=== PATIENT | female | born 1990 | race Caucasian/White ===

== ENCOUNTER 2017-04-24 11:49 | Emergency (ER) | payer BC ==
[~2017-04-24] VITALS: Ht 172.7 cm; Wt 75.6 kg
[~2017-04-24 11:49] MED LIST: ACET-749 PO; CITA40TA12 PO; FERR325T5 PO; PRENTAB26 PO; RANITAB6
[2017-04-24 11:57] VITALS: TEMP 36.8; Ht 172.7 cm; Wt 75.6 kg
[2017-04-24] MEDS ORDERED: VNTHFA/IN INH (12:16)
[2017-04-24] MEDS ORDERED: ALPR1TAB3 PO (12:16)
[2017-04-24] MEDS ORDERED: TRAM-10 PO (12:16)
[2017-04-24] MEDS ORDERED: RANI150T3 PO (12:16)
[2017-04-24] MEDS ORDERED: ADVIN25/60 INH (12:16)
[2017-04-24] MEDS ORDERED: PROM25TA9 PO (12:16)
[2017-04-24] MEDS ORDERED: AMPH30TA2 PO (12:16)
[2017-04-24] MEDS ORDERED: AMPH20TA2 PO (12:16)
[2017-04-24] MEDS ORDERED: TRAZ100T29 PO (12:16)
[2017-04-24] MEDS ORDERED: CYCL10TA6 PO (12:16)
[2017-04-24] MEDS ORDERED: LAMO100T16 PO (12:16)
--- NOTE | 2017-04-24 12:44 | EMERGENCY ROOM VISIT NOTE ---
History First contact with patient: 12:16 Chief Complaint: OTHER COMPLAINT Stated Complaint: BREAST IMPLANTS COMPLICATIONS(PAIN,LUMPS,NIPPLING) History of Present Illness The patient is a 27 year old female who presents to the Emergency Room with complaints of chest wall pain. The patient had silicone breast implants placed in 2014. This was done by Dr. Gee. She states that she felt that they never load quite "right." She states that approximately one month ago she noticed what she describes as rippling. She states that she was watching a show called Botched and felt as though her implants may not look the way they should. She states that over the last several weeks she notices chest wall pain particularly when she stands up or flexes her pectoralis muscles. She states that she notices lumps in her breasts, left worse than right. She states that she has had an intermittent rash on her chest. She rates her discomfort a 5/ 10. She contacted the plastic surgeon's office and the nurse referred her to the emergency department. The patient has an appointment with her plastic surgeon on May 08. She denies any fevers. She denies any shortness of breath or chest pain at rest. She denies any abdominal pain, nausea or vomiting. She denies any urinary symptoms. Review of Systems A 10 system review of systems was completed with positives and pertinent negatives listed in the HPI. Past Medical/Surgical History Medical Problems: (1) Anemia Social History Smoking Status: Current Every Day Smoker Housing Status: lives with family Current/Historical Medications Scheduled Amphetamine-Dextroamphetamine 20MG (Adderall 20MG), 20 MG PO DAILY@1200 Amphetamine-Dextroamphetamine 30MG (Adderall 30MG), 30 MG PO QAM Cyclobenzaprine Hcl (Flexeril), 10 MG PO NEEDED Fluticasone Prop/Salmeterol (Advair Diskus 250/50 60 Dose), 1 PUFF INH BID Lamotrigine (Lamictal), 100 MG PO BID Ranitidine Hcl (Zantac), 150 MG PO BID Trazodone Hcl (Trazodone), 100 MG PO HS Scheduled PRN Albuterol Hfa (Ventolin Hfa), 2 PUFFS INH Q6H PRN for Shortness of Breath Alprazolam (Xanax), 1 MG PO NEEDED PRN for Anxiety Promethazine Hcl (Phenergan), 25 MG PO Q6H PRN for Nausea Tramadol (Ultram), 50 MG PO Q4H PRN for Pain Physical Exam Vital Signs Date Time Temp Pulse Resp B/P (MAP) Pulse Ox O2 Delivery O2 Flow Rate FiO2 04/24/17 15:20 62 18 122/75 98 04/24/17 14:26 77 16 121/79 100 Room Air 04/24/17 13:42 81 18 129/87 100 Room Air 04/24/17 11:57 36.8 90 18 142/89 96 Room Air Physical Exam VITALS: Vitals are noted on the nurse's note and reviewed by myself. Vital signs stable. GENERAL: This is a 27-year-old female, in no acute distress, nondiaphoretic, well-developed well-nourished. SKIN: The skin was without rashes, erythema, edema, or bruising. There is no tenting of the skin. Capillary reflex less than 2 seconds. HEAD: Normocephalic atraumatic. EARS: The external ears are normal in appearance. EYES: Pupils equal round and reactive to light and accommodation. Conjunctivae without injection, sclerae without icterus. Extraocular movements intact. NOSE: Patent, turbinates without inflammation or discharge. MOUTH: Mucous membranes moist. Tonsils are not enlarged. Pharynx without erythema or exudate. Uvula midline. Airway patent. Tongue does not deviate. NECK: Supple without nuchal rigidity. No JVD. HEART: Regular rate and rhythm without murmurs gallops or rubs. LUNGS: Clear to auscultation bilaterally without wheezes, rales or rhonchi.No retractions or accessory muscle use. CHEST: There is no rash. There is no erythema or warmth. There is no area of fluctuance. There are multiple small mobile lumps noted in the bilateral breasts, left greater than right. There is no nipple discharge. There is no lymphadenopathy. ABDOMEN: Positive bowel sounds x 4. Normal tympanic percussion. Soft, nontender, without masses or organomegaly. MUSCULOSKELETAL: No muscle atrophy, erythema, or edema noted. Full range of motion without joint tenderness in all extremities. No tenderness to palpation. Normal gait. Strength 5/5 throughout. NEURO: Patient was alert and oriented to person place and time. No focal neurological deficits. Medical Decision & Procedures ER Provider Diagnostic Interpretation: CHEST 2 VIEWS ROUTINE CLINICAL HISTORY: chest pain, pain at breast implants pain COMPARISON STUDY: No previous studies for comparison. FINDINGS: The bones soft tissues and hemidiaphragms are normal. The cardiomediastinal silhouette is normal. The lungs are clear. The pulmonary vasculature is normal. IMPRESSION: Negative chest. Laboratory Results 04/24/17 12:40 Red Blood Count 4.81, Mean Corpuscular Volume 89.0, Mean Corpuscular Hemoglobin 29.5, Mean Corpuscular Hemoglobin Concent 33.2, Mean Platelet Volume 9.7, Neutrophils (%) (Auto) 55.8, Lymphocytes (%) (Auto) 34.5, Monocytes (%) (Auto) 6.9, Eosinophils (%) (Auto) 2.3, Basophils (%) (Auto) 0.4, Neutrophils # (Auto) 4.18, Lymphocytes # (Auto) 2.59, Monocytes # (Auto) 0.52, Eosinophils # (Auto) 0.17, Basophils # (Auto) 0.03 04/24/17 12:40 Test 04/24/17 12:40 White Blood Count 7.50 K/uL (4.8-10.8) Red Blood Count 4.81 M/uL (4.2-5.4) Hemoglobin 14.2 g/dL (12.0-16.0) Hematocrit 42.8 % (37-47) Mean Corpuscular Volume 89.0 fL (80-100) Mean Corpuscular Hemoglobin 29.5 pg (25-34) Mean Corpuscular Hemoglobin Concent 33.2 g/dl (32-36) Platelet Count 216 K/uL (130-400) Mean Platelet Volume 9.7 fL (7.4-10.4) Neutrophils (%) (Auto) 55.8 % Lymphocytes (%) (Auto) 34.5 % Monocytes (%) (Auto) 6.9 % Eosinophils (%) (Auto) 2.3 % Basophils (%) (Auto) 0.4 % Neutrophils # (Auto) 4.18 K/uL (1.4-6.5) Lymphocytes # (Auto) 2.59 K/uL (1.2-3.4) Monocytes # (Auto) 0.52 K/uL (0.11-0.59) Eosinophils # (Auto) 0.17 K/uL (0-0.5) Basophils # (Auto) 0.03 K/uL (0-0.2) RDW Standard Deviation 43.0 fL (36.4-46.3) RDW Coefficient of Variation 13.2 % (11.5-14.5) Immature Granulocyte % (Auto) 0.1 % Immature Granulocyte # (Auto) 0.01 K/uL (0.00-0.02) Anion Gap 4.0 mmol/L (3-11) Est Creatinine Clear Calc Drug Dose 85.2 ml/min Estimated GFR () 89.4 Estimated GFR (Non- 77.2 BUN/Creatinine Ratio 11.2 (10-20) Calcium Level 9.1 mg/dl (8.5-10.1) Total Bilirubin 0.4 mg/dl (0.2-1) Aspartate Amino Transf (AST/SGOT) 13 U/L (15-37) Alanine Aminotransferase (ALT/SGPT) 21 U/L (12-78) Alkaline Phosphatase 49 U/L (45-117) Troponin I < 0.015 ng/ml (0-0.045) Total Protein 7.2 gm/dl (6.4-8.2) Albumin 4.1 gm/dl (3.4-5.0) Globulin 3.1 gm/dl (2.5-4.0) Albumin/Globulin Ratio 1.3 (0.9-2) Thyroid Stimulating Hormone (TSH) 2.400 uIu/ml (0.300-4.500) Medications Administered Medications (Trade) Dose Ordered Sig/Robert Route Start Time Stop Time Status Last Admin Dose Admin Oxycodone HCl (Roxicodone Immediate Rel Tab) 5 mg NOW STAT PO 04/24/17 13:49 04/24/17 13:50 DC 04/24/17 14:26 5 MG ED Course The patient was seen and examined. Previous visits were reviewed. The patient does not have a fever or leukocytosis. She does not have any significant electrolyte abnormality. TSH was within normal limits. Troponin was not elevated. Chest x-ray does not reveal any obvious acute abnormality The patient has chest wall pain at the site of her breast implants. She is concerned about the appearance of the implants. She has an intermittent rash that is not present today. I do not suspect cellulitis. The patient's pain is with palpation and movement when she engages the pectoralis muscles. She does not have any shortness of breath. She does not have any elevation in her cardiac marker. Her EKG does not reveal any significant abnormality. I initially paged Dr. Hatch who is in the operating room and is not technically technical sales consultant today. I did not hear back from her. Dr. Gee's office was contacted and they stated he was out of the office and we should contact Dr. Bernard's office in [place]. Dr. Bernard's office was contacted but he is also out of the office. They state that she has an appointment on . I advised the patient that I did not have a plastic surgeon with him to discuss the case. She had hoped to get an ultrasound but I advised her that that must go through the breast center and not through the emergency department. I do not suspect infectious process or acute abnormality. She should follow up with plastic surgery for further evaluation and management. She should try Tylenol for pain. She should return with worsening symptoms. The case was discussed with Dr. Horvath who agrees with the assessment and treatment plan Medical Decision The differential diagnosis includes migrating breast implant, cellulitis, fibrocystic breast disease, among others Impression Primary Impression: Chest wall pain Departure Information Dispostion Home / Self-Care Condition GOOD Referrals Araseli Zaragoza DO (PCP) Shreya Hatch MD Patient Instructions My [employer] [place] [employer] Additional Instructions Tylenol according to package instructions Follow up with plastic surgery as scheduled Return with redness, warmth, fevers
[2017-04-24 13:03] LABS: BASO % 0.4 %; BASO ABS # 0.03 K/uL (0-0.2); COMPLETE YES; EOS % 2.3 %; HEMATOCRIT 42.8 % (37-47); IG% 0.1 %; LYMPH % 34.5 %; LYMPH ABS # 2.59 K/uL (1.2-3.4); MEAN CORPUSCULAR HEMOGLOBIN 29.5 pg (25-34); MEAN CORPUSCULAR HGB CONC 33.2 g/dl (32-36); MEAN PLATELET VOLUME 9.7 fL (7.4-10.4); MONO % 6.9 %; NEUT % 55.8 %; PLATELET COUNT 216 K/uL (130-400); RED BLOOD COUNT 4.81 M/uL (4.2-5.4)
[2017-04-24 13:16] LABS: ALT/SGPT 21 U/L (12-78); AST/SGOT 13 U/L (15-37); BLOOD UREA NITROGEN 11 mg/dl (7-18); BUN/CREATININE RATIO 11.2 (10-20); CALCIUM 9.1 mg/dl (8.5-10.1); CARBON DIOXIDE 30 mmol/L (21-32); CHLORIDE 107 mmol/L (98-107); GLUCOSE 86 mg/dl (70-99); POTASSIUM 3.7 mmol/L (3.5-5.1); SODIUM 141 mmol/L (136-145)
[2017-04-24 13:26] LABS: ALB/GLOB RATIO 1.3 (0.9-2); ALKALINE PHOSPHATASE 49 U/L (45-117)
--- NOTE | 2017-04-24 13:31 | DIAGNOSTIC IMAGING REPORT ---
CHEST 2 VIEWS ROUTINE CLINICAL HISTORY: chest pain, pain at breast implants pain COMPARISON STUDY: No previous studies for comparison. FINDINGS: The bones soft tissues and hemidiaphragms are normal. The cardiomediastinal silhouette is normal. The lungs are clear. The pulmonary vasculature is normal. IMPRESSION: Negative chest. The above report was generated using voice recognition software. It may contain grammatical, syntax or spelling errors. Electronically signed by: Myron Croft M.D. 04/24/2017 1:30 PM Dictated Date/Time: 04/24/2017 1:30 PM
[2017-04-24] MEDS ORDERED: OXYCODONE HCL IR 5 MG TAB (IMMEDIATE RELEASE) PO STA (13:49)
[2017-04-24 15:20] VITALS: BP 122/75; PULSE 62; O2SAT 98
== END 2017-04-24 15:27 | disposition home or self-care (01) ==
LOC: C.EDB 11:51 → C.EDA 15:27
DX: R07.89 Other chest pain (principal); N63 Unspecified lump in breast; Z98.82 Breast implant status; D64.9 Anemia, unspecified; F17.200 Nicotine dependence, unspecified, uncomplicated

== ENCOUNTER 2019-05-13 12:59 | Inpatient (IN) ==
--- OUTSIDE RECORDS SUMMARY | 2019-05-13 13:02 | External Medical Summary | Continuity of Care Document ---
:1990 Author Name Mani Cabral, Provider Address Unavailable Unavailable , Care Team Providers Name Role Phone Unavailable Unavailable Unavailable PCP, UNKNOWN Unavailable Unavailable Problems Active medical history not documented Allergies and Adverse Reactions No Known Drug Allergies (Allergy) Medications Medications not documented Procedures Procedures not documented Immunizations Immunizations not documented Plan of Treatment Planned Observations Planned Goals not documented Results No Known Results Results not documented
[2019-05-13 14:14] LABS: Hematocrit (blood only) 20.1 % (37-47); Hemoglobin 6.3 g/dL (12.0-16.0); Mean Corpuscular Hgb Conc 31.3 g/dL (32-36); Mean Corpuscular Volume 81.7 fL (80-100); Mean Platelet Volume 9.3 fL (7.4-10.4); Platelet Count 251 K/uL (130-400); RDW Standard Deviation 45.2 fL (36.4-46.3); Red Blood Count 2.46 M/uL (4.2-5.4); White Blood Count 7.23 K/uL (4.8-10.8)
[2019-05-13 14:15] LABS: Alanine Aminotransferase 49 U/L (12-78); Albumin Level 2.6 gm/dl (3.4-5.0); Aspartate Aminotransferase 14 U/L (15-37); BUN Creatinine Ratio 11.2 (10-20); Blood Urea Nitrogen 10 mg/dl (7-18); Calcium 8.2 mg/dl (8.5-10.1); Carbon Dioxide 24 mmol/L (21-32); Chloride 106 mmol/L (98-107); Creatinine Clr Calc Pharmacy 117.4 ml/min; Est GFR (African American) 98.8; Est GFR (Non-African American) 85.3; Glucose 79 mg/dl (70-99); Potassium 3.4 mmol/L (3.5-5.1); Sodium 139 mmol/L (136-145)
[2019-05-13 14:16] LABS: INR 1.1 (0.9-1.1); Partial Thromboplastin Ratio 0.9; Partial Thromboplastin Time 23.9 Seconds (21.0-31.0); Prothrombin Time 10.8 Seconds (9.0-12.0)
[2019-05-13 14:20] LABS: Albumin Globulin Ratio 0.8 (0.9-2); Alkaline Phosphatase 100 U/L (45-117); Bilirubin,Total 0.3 mg/dl (0.2-1); Globulin 3.3 gm/dl (2.5-4.0); Total Protein 5.9 gm/dl (6.4-8.2); Troponin I < 0.015 ng/ml (0-0.045)
[2019-05-13] MEDS ORDERED: SODIUM CHLORIDE 0.9% 250 ML IV PRN ×3 (14:21→21:18)
[2019-05-13] MEDS ORDERED: LABETALOL HCL IV 5 MG/ML 20ML IV STA ×2 (14:31→17:40)
[2019-05-13 14:34] LABS: Appearance Urine Clear (Clear); Bilirubin Urine Negative (Negative); Blood Urine Trace (Negative); Color Urine Yellow; Glucose Urine UA Negative (Negative); Ketones Urine Negative (Negative); Leukocyte Esterase Urine 1+ (Negative); Nitrite Urine Negative (Negative); Protein Urine Negative (Negative); Specific Gravity Urine 1.008 (1.000-1.030); Urobilinogen Urine Negative (Negative)
[2019-05-13] MEDS ORDERED: LORazepam 1 MG/2 ML VIAL IV STA (14:39)
[2019-05-13 14:50] LABS: Basophils # (auto) 0.02 K/uL (0-0.2); Basophils % (auto) 0.3 %; Eosinophils # (auto) 0.06 K/uL (0-0.5); Eosinophils % (auto) 0.8 %; Immature Granulocytes # (auto) 0.02 K/uL (0.00-0.02); Immature Granulocytes % (auto) 0.3 %; Lymphocytes # (auto) 2.11 K/uL (1.2-3.4); Lymphocytes % (auto) 29.2 %; Monocytes % (auto) 8.3 %; Neutrophils # (auto) 4.42 K/uL (1.4-6.5); Neutrophils % (auto) 61.1 %; Polychromasia 1+
[2019-05-13 14:53] LABS: Bacteria Urine 1+ (Negative); RBC Urine 0-4 /hpf (0-4)
[2019-05-13] MEDS ORDERED: OPTIRAY 320 125ml IV PRN (15:07)
[2019-05-13] MEDS ORDERED: LORazepam 0.5 MG/1 ML VIAL IV STA (15:17)
[2019-05-13] MEDS ORDERED: ONDANSETRON INJ 2 MG/ML 2 ML VIAL IV STA (15:17)
[2019-05-13] MEDS ORDERED: HYDROmorphone INJ 0.5 MG/0.5 ML SYR IV STA (15:17)
--- NOTE | 2019-05-13 15:18 | CT Scan Report ---
CT ANGIOGRAM OF THE CHEST CLINICAL HISTORY: Atypical chest pain. Dyspnea. . COMPARISON STUDY: Chest x-ray dated 04/24/2017. TECHNIQUE: Following the IV administration of 92 cc of Optiray 320, CT angiogram of the chest was per formed from the upper abdomen to the thoracic inlet utilizing the pulmonary embolus protocol. Images are reviewed in the axial, sagittal, and coronal planes. 3-D MIPS images are created and assessed. IV contrast was administered without complication. A dose lowering technique was utilized adhering to the principles of ALARA. The examination is degraded by streak artifact from the arms which could not be elevated above the chest. CT DOSE: 1513.86 mGy.cm FINDINGS: Thyroid: Imaged portions of the thyroid gland are normal in size and attenuation. Thoracic aorta: The thoracic aorta is normal in caliber and demonstrates standard 3-vessel arch anato my. No dissection is seen. Pulmonary vasculature: The pulmonary trunk is normal in caliber. There are no filling defects identif ied in main, lobar, or segmental pulmonary branches to suggest pulmonary embolus. Heart: The heart is normal in size and without pericardial effusion. Lungs and pleural spaces: There are trace pleural effusions. No airspace consolidation is seen typica l for pneumonia. The trachea and central airways are clear. Mediastinum: There is no mediastinal lymphadenopathy. Leeann: Clear. Axillae: There is no axillary lymphadenopathy. Upper abdomen: Partially visualized upper abdominal viscera is within normal limits. Skeletal structures: No lytic or blastic bony lesions are seen. Soft tissues: There are bilateral breast implants. IMPRESSION: 1. There is no evidence of pulmonary embolus in the main, lobar, or segmental pulmonary arteries. 2. Trace pleural effusions. Electronically signed by: Oscar Soliman M.D. 05/13/2019 3:16 PM
--- NOTE | 2019-05-13 15:19 | CT Scan Report ---
CT head/brain wo con CLINICAL HISTORY: 29 years-old Female with preeclampsia headache. Acute headache TECHNIQUE: Multiple axial CT images of the head were obtained without contrast. A dose lowering tech nique was utilized adhering to the principles of ALARA. COMPARISON: None available FINDINGS: No acute intracranial hemorrhage, midline shift, intracranial mass, hydrocephalus, territorial ischem ia or abnormal extra-axial collection. The calvarium is intact. Mild mucosal thickening of the left sphenoid sinus. Mastoid air cells are c lear. Soft tissues and orbits are unremarkable. IMPRESSION: No acute intracranial abnormality. The above report was generated using voice recognition software. It may contain grammatical, syntax o r spelling errors. Electronically signed by: Crescencio Fitzgerald M.D. 05/13/2019 3:18 PM
--- NOTE | 2019-05-13 16:57 | Ultrasound Report ---
ULTRASOUND OF THE PELVIS CLINICAL HISTORY: hemorrhage. COMPARISON STUDY: Pelvic ultrasound dated 06/11/2010. TECHNIQUE: Real-time, grayscale, and color flow sonography of the pelvis is performed transabdominall y. The endovaginal examination was deferred. Images are reviewed in the transverse and longitudinal p lanes. FINDINGS: Uterus: The uterus is enlarged and heterogeneous in echotexture, measuring 15 cm in length . Endometrium: The endometrium is thickened measuring up to 1.5 cm. There is complex fluid within the e ndometrial canal in the fundal region and in the lower uterine segment. No abnormal vascular flow is identified on color imaging. Ovaries: The ovaries are normal in size and morphology. The right ovary measures 3.9 x 1.6 x 2.6 cm a nd the left ovary measures 3.5 x 1.4 x 2.6 cm. Normal Doppler waveforms are shown within both ovaries . Pelvis: There is no free fluid in the cul-de-sac. No concerning adnexal lesion is seen. IMPRESSION: 1. The uterus is enlarged and heterogeneous in echotexture. 2. The endometrium appears thickened and there is complex fluid within endometrial canal that likely represent blood products. 3. No abnormal vascular flow is identified on color imaging to suggest retained products of conceptio n. 4. The ovaries are normal as imaged. Electronically signed by: Oscar Soliman M.D. 05/13/2019 4:55 PM
[2019-05-13] MEDS ORDERED: HYDROCORTISONE ACETATE 25 MG SUPP PR PRN (17:27)
[2019-05-13] MEDS ORDERED: SUPERCREAM 0.870% 15 GM JAR EXT PRN (17:27)
[2019-05-13] MEDS ORDERED: BENZOCAINE 20% AER SPR 82.5 GM CAN EXT PRN (17:27)
[2019-05-13] MEDS ORDERED: BISACODYL 10 MG SUPP PR PRN (17:27)
[2019-05-13] MEDS ORDERED: LACTATED RINGER'S 1,000 ML IV PRN (17:32)
[2019-05-13] MEDS ORDERED: ACETAMINOPHEN 500 MG TAB PO PRN (17:36)
[2019-05-13] MEDS ORDERED: IBUPROFEN 600 MG TAB PO ONE (18:09)
--- NOTE | 2019-05-13 18:12 | Emergency Department Note ---
Entered by Wood Horne acting as a scribe for History of Present Illness General Chief complaint: Cardiac Assessment Stated complaint: CHEST PAIN,SWELLING,SOB,DIZZY,HEADACHED Time Seen by Provider: 05/13/19 14:05 Source: patient History of Present Illness Provider complaint: Chest pain Onset (ago): day(s) 1 Location: chest Pain Consistency: + constant and + other (Worsening) Maximum Pain Intensity: 4 Current Pain Intensity: 4 Relieved By: + none Exacerbated By: + none Associated symptoms: + shortness of breath and + other (Positive dizziness); no nausea/vomiting The patient is a 29 year old female who presents to the Emergency Room with complaints of constant chest pain that started yesterday and has become worse today. The patient rates the pain as a 4/10 and notes nothing makes it better or worse. The patient reports that yesterday she also started becoming short of breath which is also worse today. The patient states that today she started feeling dizzy and developed a headache. The patient notes that just 6 days ago she gave to her 3rd child vaginally. The patient was diagnosed with preeclampsia during this time. She also had hemorrhoids and a D&C done. Due to her bleeding the patient was put on iron. While in the hospital she had one seizure episode but has not had any seizure activity since giving . The patient mentioned that since giving delivery her bilateral lower extremities have been swollen. She also has been passing blood clots vaginally. The patient reports that she has been intermittently losing color in his face as well. The patient denies any cough as well as any complications during her . Home Medications Home Medications Medication Instructions Recorded Confirmed Type clonidine HCl 0.05 mg PO QPM 05/13/19 05/13/19 History dextroamphetamine-amphetamine 30 mg PO BID 05/13/19 05/13/19 History docusate sodium 100 mg PO BID PRN 05/13/19 05/13/19 History ferrous sulfate 134 mg PO BID 05/13/19 05/13/19 History fluoxetine 40 mg PO QAM 05/13/19 05/13/19 History ibuprofen 600 mg PO Q6H 05/13/19 05/13/19 History lurasidone [Latuda] 60 mg PO QPM 05/13/19 05/13/19 History omeprazole 40 mg PO QAM 05/13/19 05/13/19 History oxycodone 5 mg PO Q6H PRN 05/13/19 05/13/19 History Allergies Allergy/AdvReac Type Severity Reaction Status Date / Time almotriptan AdvReac Severe TIGHTNESS Unverified 05/13/19 15:23 IN JAW, CAN'T BREATHE gabapentin AdvReac Severe TIGHTNESS Unverified 05/13/19 15:23 IN JAW, CAN'T BREATHE sumatriptan AdvReac Severe TIGHTNESS Unverified 05/13/19 15:23 IN JAW, CAN'T BREATHE topiramate AdvReac Severe TIGHTNESS Unverified 05/13/19 15:23 IN JAW, CANT BREATHE NSAIDS (Non-Steroidal AdvReac Unknown SWELLING Verified 05/13/19 15:23 Anti-Inflamma Past Med/Surg History Medical History Hemorrhoids (Acute) Surgical History H/O dilation and curettage Family History Other No pertinent family history in first degree relatives Social History Preferred Language: Kuwaiti Feels Safe at Home: Yes Smoking Status: Former smoker Review of Systems See HPI for pertinent positives & negatives. and A total of 10 systems reviewed and were otherwise negative Physical Exam Vital Signs Vital Signs - 24 hr 05/13/19 13:06 05/13/19 13:50 05/13/19 14:17 Temperature 36.9 C Temperature Source Oral Sepsis Recent Fever Within 48 Hours No Sepsis New/Unexplained Change in Mental Status No Sepsis Action Taken by Nursing No Action Required Pulse Rate 104 H Pulse Rate [Apical] 95 H Pulse Rate from SpO2 Sensor Pulse Rhythm Regular Pulse Rhythm [Apical] Regular Pulse Strength Normal Respiratory Rate 20 17 Respiratory Effort / Characteristics Non-Labored Spontaneous Non-Labored Spontaneous Respiratory Depth Normal Normal Respiratory Pattern Regular Regular Blood Pressure 158/88 H Blood Pressure [Left Arm] 146/68 H Blood Pressure Mean 111 Blood Pressure Mean [Left Arm] 94 Blood Pressure Position Sitting Blood Pressure Position [Left Arm] Pulse Oximetry 98 100 93 Oxygen Delivery Method Room Air Nasal Cannula Room Air Oxygen Flow Rate 2 05/13/19 14:33 05/13/19 14:44 05/13/19 15:13 Temperature Temperature Source Sepsis Recent Fever Within 48 Hours Sepsis New/Unexplained Change in Mental Status Sepsis Action Taken by Nursing Pulse Rate 67 Pulse Rate [Apical] 68 65 Pulse Rate from SpO2 Sensor 67 Pulse Rhythm Pulse Rhythm [Apical] Pulse Strength Respiratory Rate 16 16 14 Respiratory Effort / Characteristics Respiratory Depth Respiratory Pattern Blood Pressure 140/89 Blood Pressure [Left Arm] 164/101 H 164/103 H Blood Pressure Mean 106 Blood Pressure Mean [Left Arm] 122 123 Blood Pressure Position Blood Pressure Position [Left Arm] Pulse Oximetry 99 99 100 Oxygen Delivery Method Room Air Room Air Oxygen Flow Rate 2 05/13/19 15:48 05/13/19 16:05 05/13/19 16:20 Temperature 37.1 C 37.0 C 37.0 C Temperature Source Oral Oral Oral Sepsis Recent Fever Within 48 Hours Sepsis New/Unexplained Change in Mental Status Sepsis Action Taken by Nursing Pulse Rate 74 77 69 Pulse Rate [Apical] Pulse Rate from SpO2 Sensor Pulse Rhythm Pulse Rhythm [Apical] Pulse Strength Respiratory Rate 18 20 18 Respiratory Effort / Characteristics Respiratory Depth Respiratory Pattern Blood Pressure 144/96 H 146/96 H 155/92 H Blood Pressure [Left Arm] Blood Pressure Mean 112 112 113 Blood Pressure Mean [Left Arm] Blood Pressure Position Lying Lying Lying Blood Pressure Position [Left Arm] Pulse Oximetry 98 98 99 Oxygen Delivery Method Oxygen Flow Rate 05/13/19 16:50 05/13/19 17:30 05/13/19 17:32 Temperature 37.2 C 37.2 C Temperature Source Oral Oral Sepsis Recent Fever Within 48 Hours Sepsis New/Unexplained Change in Mental Status Sepsis Action Taken by Nursing Pulse Rate 60 63 Pulse Rate [Apical] 75 Pulse Rate from SpO2 Sensor Pulse Rhythm Pulse Rhythm [Apical] Pulse Strength Respiratory Rate 18 20 16 Respiratory Effort / Characteristics Non-Labored Spontaneous Respiratory Depth Normal Respiratory Pattern Blood Pressure 151/91 H 151/91 H Blood Pressure [Left Arm] 151/91 H Blood Pressure Mean 111 111 Blood Pressure Mean [Left Arm] 111 Blood Pressure Position Sitting Blood Pressure Position [Left Arm] Lying Pulse Oximetry 100 100 100 Oxygen Delivery Method Nasal Cannula Oxygen Flow Rate 2 2 2 05/13/19 18:00 05/13/19 18:30 05/13/19 18:42 Temperature 37.3 C 37.1 C Temperature Source Oral Oral Sepsis Recent Fever Within 48 Hours Sepsis New/Unexplained Change in Mental Status Sepsis Action Taken by Nursing Pulse Rate 60 60 Pulse Rate [Apical] Pulse Rate from SpO2 Sensor Pulse Rhythm Pulse Rhythm [Apical] Pulse Strength Respiratory Rate 18 20 Respiratory Effort / Characteristics Respiratory Depth Respiratory Pattern Blood Pressure 134/93 140/91 Blood Pressure [Left Arm] Blood Pressure Mean 106 107 Blood Pressure Mean [Left Arm] Blood Pressure Position Blood Pressure Position [Left Arm] Pulse Oximetry 100 100 Oxygen Delivery Method Nasal Cannula Oxygen Flow Rate 2 2 2 05/13/19 20:18 Temperature 36.6 C Temperature Source Oral Sepsis Recent Fever Within 48 Hours Sepsis New/Unexplained Change in Mental Status Sepsis Action Taken by Nursing Pulse Rate Pulse Rate [Apical] 86 Pulse Rate from SpO2 Sensor Pulse Rhythm Pulse Rhythm [Apical] Pulse Strength Respiratory Rate 18 Respiratory Effort / Characteristics Respiratory Depth Respiratory Pattern Blood Pressure Blood Pressure [Left Arm] 135/66 Blood Pressure Mean Blood Pressure Mean [Left Arm] 89 Blood Pressure Position Blood Pressure Position [Left Arm] Pulse Oximetry 99 Oxygen Delivery Method Room Air Oxygen Flow Rate GENERAL: Distressed. HENT: Exam performed. Head: Normocephalic and atraumatic. Right Ear: External ear normal. No mastoid tenderness. Left Ear: External ear normal. No mastoid tenderness. Mouth/Throat: The oropharynx is clear and moist. No trismus in the jaw. No dental abscesses or uvula swelling. No oropharyngeal exudate or tonsillar abscesses. EYES: No AV nicking or papilledema. Conjunctivae and EOM are normal. Pupils are equal, round, and reactive to light. Right eye exhibits no discharge. Left eye exhibits no discharge. No scleral icterus. NECK: Normal range of motion. Neck supple. No JVD present. No spinous process tenderness present. No carotid bruit present. No rigidity. No tracheal deviation and normal range of motion present. No Brudzinski's sign and no Kernig's sign noted. CV: Normal rate, regular rhythm, normal heart sounds and intact distal pulses. There is no peripheral edema. Palpable radial pulses bue. PULM/CHEST: Effort normal and breath sounds normal. No respiratory distress. No stridor. She has no wheezes. She has no rales. Chest Wall: She exhibits no tenderness. ABD: The abdomen is soft. Bowel sounds are normal. She has no distension. No mass is present. There is no tenderness. There is no rebound, no guarding, no Batres's sign and no tenderness at McBurney's point. Rovsig negative MUSC/SKEL: Normal range of motion. There is no peripheral tenderness or deformity. 3+ pitting edema to the bilateral lower extremities. LYMPH: No cervical adenopathy. NEURO: She is alert and oriented to person, place, and time. She has normal strength. No cranial nerve deficit or sensory deficit. Coordination and gait normal. GCS eye subscore is 4. GCS verbal subscore is 5. GCS motor subscore is 6. cerbellar tests wnl. SKIN: Skin is warm and dry. She is not diaphoretic. Pale. PSYCH: She has a normal mood and affect. Her behavior is normal. Judgment and thought content normal. Course 1407: Past medical records reviewed. The patient was evaluated in room A10, and a complete history and physical examination were performed. We are medially concerned about preeclampsia/eclamptic, press syndrome, hemorrhage, and retained products of conception. 2 large-bore IVs were medially placed. 1430: The patient's hemoglobin was 6.3 so I ordered a blood transfusion. I dis cussed the case with Dr. Lawrence LUU who agreed with the plan to get a CT head, CT chest, MRI of the brain, and a pelvic ultrasound. Her blood pressure was 164/101 so I ordered 10mg of Labetalol. I also ordered 1mg of Ativan. 1458: The patient's medical records show that she was induced and delivered on May 07 because of preeclampsia. Her initial symptom was a headache and her b lood pressures were good while at [facility] in [place]. The patient was started on Magnesium and is still taking it. Her 24 hour protein was 421. 1541: The patient's blood pressure is 140/89 status post the 10mg bolus of Labetalol and 1mg Ativan. All of her CT scans were negative. We are going to be gin the blood transfusion and then bring the patient to ultrasound. 1712: Labs within normal limits with exception of the hemoglobin. Platelets are stable, mild elevation of the LFTs. Protein negative urine. CTs within normal limits. I updated Dr. Velazco on the patient. He is going to come evaluate her. 1806: Ultrasound shows no retained products of conception. MRI negative. Patient is currently getting the blood transfusion. I spoke to Dr. Bravo after he evaluated the patient and he will be accepting her for further evaluation. Her blood pressure following a dose of 20mg Labetalol is 135/90. Consultations Consultation #1: I discussed the case with Dr. Lawrence LUU who agreed with the plan to get a CT head, CT chest, MRI of the brain, and a pelvic ultrasound. Her blood pressure was 164/101 so I ordered 10mg of Labetalol. I also ordered 1mg of Ativan. Time: 14:30 Consultation #2: I spoke to Dr. Bravo after he evaluated the patient and he will be accepting her for further evaluation. Her blood pressure following a dose of 20mg Labetalol is 135/90. Time: 18:06 Administered Medications Acetaminophen (Tylenol) 650 mg PO Q6H PRN PRN Reason: Pain/DIOP/Fever Stop: 06/12/19 17:26 Last Admin: 05/13/19 18:18 Dose: 650 mg Documented by: [id number] Ioversol (Optiray 320 125ml) 92 ml IV ONCE PRN PRN Reason: Interaction Checking Stop: 05/17/19 15:06 Last Admin: 05/13/19 15:08 Dose: 92 ml Documented by: [id number] Discontinued Medications Alprazolam (Xanax) Confirm Administered Dose 0.5 mg .ROUTE .STK-MED ONE Stop: 05/13/19 18:29 Last Admin: 05/13/19 18:29 Dose: 1 mg Documented by: [id number] Hydromorphone HCl (Dilaudid) 0.5 mg IV NOW STA Stop: 05/13/19 15:18 Last Admin: 05/13/19 15:23 Dose: 0.5 mg Documented by: [id number] Lorazepam (Ativan) 1 mg in 2 mls @ 2 mls/min IV NOW STA Stop: 05/13/19 14:40 Last Admin: 05/13/19 14:43 Dose: 2 mls/min Documented by: [id number] Lorazepam (Ativan) 0.5 mg in 1 mls @ 1 mls/min IV NOW STA Stop: 05/13/19 15:18 Last Admin: 05/13/19 15:25 Dose: 1 mls/min Documented by: [id number] Ibuprofen (Motrin) Confirm Administered Dose 600 mg PO .STK-MED ONE Stop: 05/13/19 18:10 Last Admin: 05/13/19 18:18 Dose: 600 mg Documented by: [id number] Labetalol HCl (Normodyne) 10 mg IV NOW STA Stop: 05/13/19 14:32 Last Admin: 05/13/19 14:36 Dose: 10 mg Documented by: [id number] Cosigned by: [id number] Labetalol HCl (Normodyne) 20 mg IV NOW STA Stop: 05/13/19 17:41 Last Admin: 05/13/19 17:55 Dose: 20 mg Documented by: [id number] Cosigned by: [id number] Ondansetron HCl (Zofran) 4 mg IV NOW STA Stop: 05/13/19 15:18 Last Admin: 05/13/19 15:25 Dose: 4 mg Documented by: [id number] Medical Decision Making Medical Records Attestation: I reviewed the patient's medical records. Home Medications Current Medication List: was personally reviewed by me Laboratory Data Attestation: I reviewed the patient's lab results. Result diagrams: 05/13/19 13:39 05/13/19 13:39 Lab Results 05/13/19 05/13/19 05/13/19 Range/Units 13:39 13:39 13:39 WBC 7.23 (4.8-10.8) K/uL RBC 2.46 L (4.2-5.4) M/uL Hgb 6.3 L* (12.0-16.0) g/dL Hct 20.1 L* (37-47) % MCV 81.7 (80-100) fL MCH 25.6 (25-34) pg MCHC 31.3 L (32-36) g/dL RDW Std Deviation 45.2 (36.4-46.3) fL RDW Coeff of Dax 16.0 H (11.5-14.5) % Plt Count 251 (130-400) K/uL MPV 9.3 (7.4-10.4) fL Immature Gran % (Auto) 0.3 % Neut % (Auto) 61.1 % Lymph % (Auto) 29.2 % Schley % (Auto) 8.3 % Eos % (Auto) 0.8 % Baso % (Auto) 0.3 % Immature Gran # (Auto) 0.02 (0.00-0.02) K/uL Neut # (Auto) 4.42 (1.4-6.5) K/uL Lymph # (Auto) 2.11 (1.2-3.4) K/uL Schley # (Auto) 0.60 H (0.11-0.59) K/uL Eos # (Auto) 0.06 (0-0.5) K/uL Baso # (Auto) 0.02 (0-0.2) K/uL Polychromasia 1+ PT 10.8 (9.0-12.0) Seconds INR 1.1 (0.9-1.1) APTT 23.9 (21.0-31.0) Seconds PTT Ratio 0.9 Sodium 139 (136-145) mmol/L Potassium 3.4 L (3.5-5.1) mmol/L Chloride 106 (98-107) mmol/L Carbon Dioxide 24 (21-32) mmol/L Anion Gap 9.0 (3-11) BUN 10 (7-18) mg/dl Creatinine 0.91 (0.6-1.2) mg/dl Est Cr Clr Drug Dosing 117.4 ml/min Est GFR ( Amer) 98.8 Est GFR (Non-Af Amer) 85.3 BUN/Creatinine Ratio 11.2 (10-20) Glucose 79 (70-99) mg/dl Calcium 8.2 L (8.5-10.1) mg/dl Total Bilirubin 0.3 (0.2-1) mg/dl AST 14 L (15-37) U/L ALT 49 (12-78) U/L Alkaline Phosphatase 100 (45-117) U/L Troponin I < 0.015 (0-0.045) ng/ml Total Protein 5.9 L (6.4-8.2) gm/dl Albumin 2.6 L (3.4-5.0) gm/dl Globulin 3.3 (2.5-4.0) gm/dl Albumin/Globulin Ratio 0.8 L (0.9-2) Urine Color Urine Appearance (Clear) Urine pH (4.5-7.5) Ur Specific [place] (1.000-1.030) Urine Protein (Negative) Urine Glucose (UA) (Negative) Urine Ketones (Negative) Urine Blood (Negative) Urine Nitrite (Negative) Urine Bilirubin (Negative) Urine Urobilinogen (Negative) Ur Leukocyte Esterase (Negative) Urine RBC (0-4) /hpf Urine WBC (0-5) /hpf Ur Epithelial Cells (0-5) /lpf Urine Bacteria (Negative) Blood Type Antibody Screen Crossmatch 05/13/19 05/13/19 Range/Units 14:19 14:25 WBC (4.8-10.8) K/uL RBC (4.2-5.4) M/uL Hgb (12.0-16.0) g/dL Hct (37-47) % MCV (80-100) fL MCH (25-34) pg MCHC (32-36) g/dL RDW Std Deviation (36.4-46.3) fL RDW Coeff of Dax (11.5-14.5) % Plt Count (130-400) K/uL MPV (7.4-10.4) fL Immature Gran % (Auto) % Neut % (Auto) % Lymph % (Auto) % Schley % (Auto) % Eos % (Auto) % Baso % (Auto) % Immature Gran # (Auto) (0.00-0.02) K/uL Neut # (Auto) (1.4-6.5) K/uL Lymph # (Auto) (1.2-3.4) K/uL Schley # (Auto) (0.11-0.59) K/uL Eos # (Auto) (0-0.5) K/uL Baso # (Auto) (0-0.2) K/uL Polychromasia PT (9.0-12.0) Seconds INR (0.9-1.1) APTT (21.0-31.0) Seconds PTT Ratio Sodium (136-145) mmol/L Potassium (3.5-5.1) mmol/L Chloride (98-107) mmol/L Carbon Dioxide (21-32) mmol/L Anion Gap (3-11) BUN (7-18) mg/dl Creatinine (0.6-1.2) mg/dl Est Cr Clr Drug Dosing ml/min Est GFR ( Amer) Est GFR (Non-Af Amer) BUN/Creatinine Ratio (10-20) Glucose (70-99) mg/dl Calcium (8.5-10.1) mg/dl Total Bilirubin (0.2-1) mg/dl AST (15-37) U/L ALT (12-78) U/L Alkaline Phosphatase (45-117) U/L Troponin I (0-0.045) ng/ml Total Protein (6.4-8.2) gm/dl Albumin (3.4-5.0) gm/dl Globulin (2.5-4.0) gm/dl Albumin/Globulin Ratio (0.9-2) Urine Color Yellow Urine Appearance Clear (Clear) Urine pH 6.0 (4.5-7.5) Ur Specific [place] 1.008 (1.000-1.030) Urine Protein Negative (Negative) Urine Glucose (UA) Negative (Negative) Urine Ketones Negative (Negative) Urine Blood Trace H (Negative) Urine Nitrite Negative (Negative) Urine Bilirubin Negative (Negative) Urine Urobilinogen Negative (Negative) Ur Leukocyte Esterase 1+ H (Negative) Urine RBC 0-4 (0-4) /hpf Urine WBC 5-10 H (0-5) /hpf Ur Epithelial Cells 10-20 H (0-5) /lpf Urine Bacteria 1+ H (Negative) Blood Type A Positive Antibody Screen NEGATIVE Crossmatch See Detail Imaging Data Radiologist's Impression: Radiology results as stated below per my review and the radiologist's interpretation: CT head/brain wo con CLINICAL HISTORY: 29 years-old Female with preeclampsia headache. Acute headache TECHNIQUE: Multiple axial CT images of the head were obtained without contrast. A dose lowering technique was utilized adhering to the principles of ALARA. COMPARISON: None available FINDINGS: No acute intracranial hemorrhage, midline shift, intracranial mass, hydrocephalus, territorial ischemia or abnormal extra-axial collection. The calvarium is intact. Mild mucosal thickening of the left sphenoid sinus. Mastoid air cells are clear. Soft tissues and orbits are unremarkable. IMPRESSION: No acute intracranial abnormality. The above report was generated using voice recognition software. It may contain grammatical, syntax or spelling errors. Electronically signed by: Crescencio Fitzgerald M.D. 05/13/2019 3:[address] ANGIOGRAM OF THE CHEST CLINICAL HISTORY: Atypical chest pain. Dyspnea. . COMPARISON STUDY: Chest x-ray dated 04/24/2017. TECHNIQUE: Following the IV administration of 92 cc of Optiray 320, CT angiogram of the chest was performed from the upper abdomen to the thoracic inlet utilizing the pulmonary embolus protocol. Images are reviewed in the axial, sagittal, and coronal planes. 3-D MIPS images are created and assessed. IV contrast was administered without complication. A dose lowering technique was utilized adhering to the principles of ALARA. The examination is degraded by streak artifact from the arms which could not be elevated above the chest. CT DOSE: 1513.86 mGy.cm FINDINGS: Thyroid: Imaged portions of the thyroid gland are normal in size and attenuation. Thoracic aorta: The thoracic aorta is normal in caliber and demonstrates standard 3-vessel arch anatomy. No dissection is seen. Pulmonary vasculature: The pulmonary trunk is normal in caliber. There are no filling defects identified in main, lobar, or segmental pulmonary branches to suggest pulmonary embolus. Heart: The heart is normal in size and without pericardial effusion. Lungs and pleural spaces: There are trace pleural effusions. No airspace consolidation is seen typical for pneumonia. The trachea and central airways are clear. Mediastinum: There is no mediastinal lymphadenopathy. Leeann: Clear. Axillae: There is no axillary lymphadenopathy. Upper abdomen: Partially visualized upper abdominal viscera is within normal limits. Skeletal structures: No lytic or blastic bony lesions are seen. Soft tissues: There are bilateral breast implants. IMPRESSION: 1. There is no evidence of pulmonary embolus in the main, lobar, or segmental pulmonary arteries. 2. Trace pleural effusions. Electronically signed by: Oscar Soliman M.D. 05/13/2019 3:16 PM ULTRASOUND OF THE PELVIS CLINICAL HISTORY: hemorrhage. COMPARISON STUDY: Pelvic ultrasound dated 06/11/2010. TECHNIQUE: Real-time, grayscale, and color flow sonography of the pelvis is p erformed transabdominally. The endovaginal examination was deferred. Images are reviewed in the transverse and longitudinal planes. FINDINGS: Uterus: The uterus is enlarged and heterogeneous in echotexture, measuring 15 cm in length. Endometrium: The endometrium is thickened measuring up to 1.5 cm. There is complex fluid within the endometrial canal in the fundal region and in the lower uterine segment. No abnormal vascular flow is identified on color imaging. Ovaries: The ovaries are normal in size and morphology. The right ovary measures 3.9 x 1.6 x 2.6 cm and the left ovary measures 3.5 x 1.4 x 2.6 cm. Normal Doppler waveforms are shown within both ovaries. Pelvis: There is no free fluid in the cul-de-sac. No concerning adnexal lesion is seen. IMPRESSION: 1. The uterus is enlarged and heterogeneous in echotexture. 2. The endometrium appears thickened and there is complex fluid within endometrial canal that likely represent blood products. 3. No abnormal vascular flow is identified on color imaging to suggest retained products of conception. 4. The ovaries are normal as imaged. Electronically signed by: Oscar Soliman M.D. 05/13/2019 4:55 PM MR brain wo con CLINICAL HISTORY: 29 years-old Female presenting with recent status, seizure prior to giving 6 days ago, shortness of breath and chest pain, he adaches and leg swelling, concern for PRES, eclampsia. TECHNIQUE: Multisequence, multiplanar MR imaging of the brain was performed without the use of intravenous contrast. IV contrast: None. COMPARISON: Noncontrast CT head performed earlier the same day. FINDINGS: Localizer images: Unremarkable. Normal midline sagittal structures. Ventricles and sulci normal in size. No restricted diffusion or hemorrhage. Brain parenchyma normal in appearance with preserved caldwell-white differentiation. No mass effect or midline shift. No extra-axial fluid collection. T2 skull base flow voids preserved. Bone marrow signal intensity within the calvarium within normal limits. IMPRESSION: 1. No acute intracranial abnormality. Electronically signed by: Rishabh Burgos M.D. 05/13/2019 6:15 PM ECG Data Attestation: I personally reviewed and interpreted this ECG as follows: Indication: chest pain Rate (beats per minute): 69 Rhythm: other (Sinus arrhythmia ) Findings: + other (RI, QRS, QTC intervals are WNL. ); no ST depression and no ST elevation Blood Pressure Blood Pressure Findings: Elevated blood pressure Blood Pressure Disposition: Referred to patients primary care provider [facility] Narrative 1407: Past medical records reviewed. The patient was evaluated in room A10, and a complete history and physical examination were performed. We are medially c oncerned about preeclampsia/eclamptic, press syndrome, hemorrhage, and retained products of conception. 2 large-bore IVs were medially placed. 1430: The patient's hemoglobin was 6.3 so I ordered a blood transfusion. I discussed the case with Dr. Lawrence LUU who agreed with the plan to get a CT head, CT chest, MRI of the brain, and a pelvic ultrasound. Her blood pressure was 164/101 so I ordered 10mg of Labetalol. I also ordered 1mg of Ativan. 1458: The patient's medical records show that she was induced and delivered on May 07 because of preeclampsia. Her initial symptom was a headache and her blood pressures were good while at [facility] in [place]. The patient was started on Magnesium and is still taking it. Her 24 hour protein was 421. 1541: The patient's blood pressure is 140/89 status post the 10mg bolus of Labetalol and 1mg Ativan. All of her CT scans were negative. We are going to begin the blood transfusion and then bring the patient to ultrasound. 1712: Labs within normal limits with exception of the hemoglobin. Platelets are stable, mild elevation of the LFTs. Protein negative urine. CTs within normal limits. I updated Dr. Velazco on the patient. He is going to come evaluate her. 1806: Ultrasound shows no retained products of conception. MRI negative. Patient is currently getting the blood transfusion. I spoke to Dr. Bravo after he evaluated the patient and he will be accepting her for further evaluation. Her blood pressure following a dose of 20mg Labetalol is 135/90. Impression & Plan Symptomatic anemia, hypertension, Pre-eclampsia, Critical Care Time Critical Care Time: Yes Total Critical Care Time: 92 I have personally spent greater than 92 minutes of critical care time in the direct management of this patient. This includes bedside care, interpretation of diagnostic studies, and testing, discussion with consultants, patient, and family members, and other required patient management activities. This 92 minutes is in excess of all separately billable procedures. Discharge Plan Visit Data Chief Complaint: Cardiac Assessment Stated Complaint: CHEST PAIN,SWELLING,SOB,DIZZY,HEADACHED Other Complaint: Swelling/Edema to Extremity ED Provider: Kimani Lopez Discharge Problem: Symptomatic anemia, hypertension, Pre-eclampsia, Patient Disposition: Admitted As Inpatient Discharge Instructions Interventions: ED Discharge Assessment Last Done: 05/13/19 18:42 Forms Stand Alone Forms: My [facility] [employer] Prescriptions Prescriptions: No Action fluoxetine 40 mg capsule 40 mg PO QAM RF: 0 clonidine HCl 0.1 mg tablet 0.05 mg PO QPM RF: 0 omeprazole 40 mg capsule,delayed release(DR/EC) 40 mg PO QAM RF: 0 docusate sodium 100 mg capsule 100 mg PO BID PRN (Reason: Constipation) RF: 0 ibuprofen 600 mg tablet 600 mg PO Q6H RF: 0 oxycodone 5 mg Tablet 5 mg PO Q6H PRN (Reason: Pain) RF: 0 ferrous sulfate 134 mg (27 mg iron) Tablet 134 mg PO BID RF: 0 Latuda 60 mg tablet 60 mg PO QPM RF: 0 dextroamphetamine-amphetamine 30 mg tablet 30 mg PO BID RF: 0 Referrals Referrals: Araseli Zaragoza, DO [Primary Care Provider] - The scribe's documentation has been prepared under my direction and personally reviewed by me in its entirety. I confirm that the note above accurately reflects all work, treatment, procedures, and medical decision making performed by me.
[2019-05-13] MEDS ORDERED: ALPRAZolam 0.5 MG TABLET PO STA (18:14)
--- NOTE | 2019-05-13 18:16 | Magnetic Resonance Report ---
MR brain wo con CLINICAL HISTORY: 29 years-old Female presenting with recent status, seizure prior to givi ng 6 days ago, shortness of breath and chest pain, headaches and leg swelling, concern for PRES , eclampsia. TECHNIQUE: Multisequence, multiplanar MR imaging of the brain was performed without the use of intrav enous contrast. IV contrast: None. COMPARISON: Noncontrast CT head performed earlier the same day. FINDINGS: Localizer images: Unremarkable. Normal midline sagittal structures. Ventricles and sulci normal in size. No restricted diffusion or h emorrhage. Brain parenchyma normal in appearance with preserved caldwell-white differentiation. No mass e ffect or midline shift. No extra-axial fluid collection. T2 skull base flow voids preserved. Bone marrow signal intensity within the calvarium within normal limits. IMPRESSION: 1. No acute intracranial abnormality. Electronically signed by: Rishabh Burgos M.D. 05/13/2019 6:15 PM
[2019-05-13] MEDS: ACETAMINOPHEN 325 MG TAB PO PRN (18:18)
[2019-05-13] MEDS ORDERED: ALPRAZolam 0.5 MG TABLET ONE (18:28)
[2019-05-13] MEDS ORDERED: IBUPROFEN 600 MG TAB PO PRN (20:42)
[2019-05-13] MEDS ORDERED: OXYCODONE HCL IR 5 MG TAB (IMMEDIATE RELEASE) PO PRN (20:42)
[2019-05-13] MEDS ORDERED: DOCUSATE SODIUM 100 MG CAP PO PRN (20:42)
[2019-05-13] MEDS ORDERED: LURASIDONE HCL 40 MG TAB PO SCH (21:00)
[2019-05-13] MEDS ORDERED: cloNIDine HCl 0.1 MG TAB PO SCH (21:00)
[2019-05-13] MEDS: DOCUSATE SODIUM 100 MG CAP PO SCH (21:57)
[2019-05-13] MEDS: LABETALOL HCL 100 MG TAB PO SCH (21:59)
[2019-05-14 04:09] LABS: Hematocrit (blood only) 23.2 % (37-47); Hemoglobin 7.7 g/dL (12.0-16.0)
--- NOTE | 2019-05-14 05:26 | History and Physical Report ---
REASON FOR ADMISSION AND HISTORY OF PRESENT ILLNESS: The patient is a 29-year-old female para 3-0-0-3, status post delivery at [facility] 05/07/2019 of a live male with Apgars 5, 6, 7 at 1, 5 and 10 minutes. The patient was seen at [facility] because she was traveling to [place] for a concert and developed onset of what sounds like labor. She was 36 weeks and 4 days. EDC 05/31/2019. GBS is unknown. She was induced due to preeclampsia without severe features. Her blood pressure was in normal range at that time and her symptoms were that of headache. Her delivery was uncomplicated of a live male. Her labs were all normal when she was in [place] as was what we can see from limited record from [facility]. After delivery, she apparently had hemorrhage, was taken to the OR for D&C and had a Bakri balloon placed. She did not receive any blood. She was on magnesium for 24 hours and was discharged home this past Thursday in stable condition, placed on iron. She had been told to follow up. She was seen in the ER today and she was complaining of some shortness of breath and some chest pain. Workup done included CT scan of the chest without any evidence of pulmonary disease or any evidence of a pulmonary embolism. CT scan of head did not reveal any evidence of brain bleed. Ultrasound revealed possible blood clots in the uterus; however, no evidence of retained placenta. The blood count on admission was 6.3 hemoglobin and 20.1 hematocrit with normal white cell count of 7.3. Coags were normal. Chemistries were normal without any evidence of any preeclampsia. Urine showed negative protein and her platelet count was 251. The patient is 6 days . She will be admitted for a diagnosis of hypertension and anemia. She will be given 2 units of packed red cells. H&H will be done post-transfusion and another CBC was ordered for tomorrow morning. The patient will also be started on labetalol 100 mg twice a day. PHYSICAL EXAMINATION: HEENT: Within normal limits. LUNGS: Clear to auscultation. VITAL SIGNS: Blood pressure 151/91. ABDOMEN: Soft, gravid. No bleeding. EXTREMITIES: Her legs show 1+ edema. There is no evidence of a DVT. Homans' negative. NEUROLOGIC: Intact. ASSESSMENT: with hypertension and anemia. PLAN: Admit and continue blood and CBC to follow and observation.
[2019-05-14] MEDS: ACETAMINOPHEN 325 MG TAB PO PRN (05:30)
[2019-05-14] MEDS: LABETALOL HCL 100 MG TAB PO SCH (07:53)
[2019-05-14] MEDS: DOCUSATE SODIUM 100 MG CAP PO SCH (07:54)
[2019-05-14] MEDS ORDERED: PRENATAL VITAMIN 1 TAB PO SCH (08:00)
[2019-05-14] MEDS ORDERED: FERROUS SULFATE 325 MG TAB PO SCH (08:00)
[2019-05-14] MEDS ORDERED: FERROUS SULFATE ELIX 220MG/5ML PO SCH (09:00)
[2019-05-14] MEDS ORDERED: PANTOprazole 40 MG TAB PO SCH (09:00)
[2019-05-14] MEDS ORDERED: FLUOXETINE HCL 20 MG CAP PO SCH (09:00)
[2019-05-14] MEDS ORDERED: AMPHETAMINE ASP/SULF/DEXTRAMPH 10 MG TAB PO SCH (09:00)
--- NOTE | 2019-05-14 10:55 | Progress Note ---
Date of Service May 14, 2019 Subjective S:Pt doing well Improved clinically No more SOB, tachycardia or dyspnea Improved BP on labetalol PIH labs; NMl O; VSS PE; Ht ; S1S2. R/R/R Lung : CTA bilt Abd; NT. +BS ext; No C/C/E A/P Preeclampsia PP Anemia . PPH received 2 units PRBC stable labs Elev. BP- responded to labetalol d/c home with instructions Results & Data Vital Signs (Past 12 Hours) Vital Signs Temp Pulse Pulse Resp BP BP BP 05/14/19 08:14 36.7 C 71 16 125/89 05/14/19 04:05 37 C 86 98 H 122/71 05/14/19 01:17 36.8 C 96 H 18 129/74 05/13/19 23:20 36.8 C 69 18 107/71 05/13/19 23:15 36.9 C 72 82 18 133/86 133/86 Pulse Ox 05/14/19 08:14 99 05/14/19 04:05 98 05/14/19 01:17 05/13/19 23:20 05/13/19 23:15 100
[2019-05-14] MEDS ORDERED: BISACODYL 5 MG TABEC PO SCH (20:00)
--- NOTE | 2019-05-23 13:28 | Discharge Summary ---
CHIEF COMPLAINT: Shortness of breath and chest pain. HISTORY OF PRESENT ILLNESS: This is a 29-year-old who presented to the Emergency Room with complaints of chest pain and shortness of breath. The patient had delivered 6 days prior to date of visit to the Emergency Room in [place]. Her delivery had been complicated by preeclampsia and hemorrhage. She was seen and evaluated in the ER, evaluation included blood work and radiologic studies. There were no signs of PE. There was, however, significant anemia, hemoglobin was 6.0. The patient was admitted and received 2 units of packed RBC. Her hemoglobin stabilized and her symptoms improved. She was discharged home on 05/14/2019. At time of discharge, her hemoglobin was 8.1, hematocrit was 25.2. PAST MEDICAL HISTORY: History of hemorrhoids. PAST SURGICAL HISTORY: History of D and C. SOCIAL HISTORY: The patient denies tobacco, drug or alcohol use. FAMILY HISTORY: Noncontributory. ALLERGIES: THE PATIENT IS ALLERGIC TO ALMOTRIPTAN, GABAPENTIN, SUMATRIPTAN, AND TOPIRAMATE. REVIEW OF SYSTEMS: Negative except as dictated in the HPI. PHYSICAL EXAMINATION: GENERAL: Well-developed, well-nourished white female, feeling much better at the time of admission. HEART: S1, S2, regular rhythm and rate. LUNGS: Clear to auscultation bilaterally. ABDOMEN: Nontender, nondistended, positive bowel sounds. EXTREMITIES: No cyanosis, clubbing or edema. LABORATORY DATA: Labs at time of discharge showed hemoglobin of 8.1, hematocrit of 25.2. Vitals show temperature of 36.7, pulse of 71, respirations 16, blood pressure 125/89. MEDICATIONS: The patient is on labetalol. CONDITION ON DISCHARGE: Stable. OPERATION: anemia, status post preeclampsia and hemorrhage. DISCHARGE DIAGNOSES: 1. hemorrhage. 2. Preeclampsia. 3. anemia. PLAN ON DISCHARGE: The patient is discharged home with instructions regarding activity, diet, followup appointment and medications.
== END 2019-05-14 11:54 | disposition home or self-care (01) | DRG 776 ==
LOC: ED 12:59 → 4N 17:32

== ENCOUNTER 2019-05-24 17:23 | Inpatient (IN) ==
[2019-05-24] MEDS ORDERED: SODIUM CHLORIDE 0.9% 1000ML 1,000 ML IV ONE (17:50)
[2019-05-24] MEDS ORDERED: MoRPHine SULFATE 4 MG/ML 1 ML CARP\\VIAL IV STA ×3 (17:51→21:40)
[2019-05-24] MEDS ORDERED: ONDANSETRON INJ 2 MG/ML 2 ML VIAL IV STA (17:51)
[2019-05-24] MEDS ORDERED: VANCOMYCIN CONSULT ACTIVE PRN ×2 (17:56→22:19)
[2019-05-24] MEDS ORDERED: PIPERACILLIN/TAZOBACTAM 4.5 GM/120 ML BAG IV ONE (17:56)
[2019-05-24] MEDS ORDERED: PIPERACILL/TAZOBAC CONSULT ACTIVE PRN (17:56)
[2019-05-24] MEDS ORDERED: VANCOMYCIN HCL 2,000 MG in SODIUM CHLORIDE 0.9% 500 ML IV ONE (17:56)
--- NOTE | 2019-05-24 18:06 | XRay Report ---
XR chest 1V portable CLINICAL HISTORY: Sepsis COMPARISON STUDY: 05/14/2019 FINDINGS: The cardiac and mediastinal contours are normal. There is no evidence of focal pulmonary co nsolidation. There is no evidence of failure. No pleural effusions are visualized.[ IMPRESSION: No active disease in the chest. Electronically signed by: Sd Manzano M.D. 05/24/2019 6:05 PM
[2019-05-24 18:27] LABS: Basophils # (auto) 0.02 K/uL (0-0.2); Basophils % (auto) 0.1 %; Eosinophils # (auto) 0.17 K/uL (0-0.5); Eosinophils % (auto) 1.2 %; Hematocrit (blood only) 31.6 % (37-47); Hemoglobin 10.2 g/dL (12.0-16.0); Immature Granulocytes # (auto) 0.03 K/uL (0.00-0.02); Immature Granulocytes % (auto) 0.2 %; Lymphocytes # (auto) 1.67 K/uL (1.2-3.4); Lymphocytes % (auto) 11.8 %; Mean Corpuscular Hgb Conc 32.3 g/dL (32-36); Mean Corpuscular Volume 80.4 fL (80-100); Mean Platelet Volume 9.1 fL (7.4-10.4); Monocytes # (auto) 1.15 K/uL (0.11-0.59); Monocytes % (auto) 8.1 %; Neutrophils # (auto) 11.14 K/uL (1.4-6.5); Neutrophils % (auto) 78.6 %; Platelet Count 344 K/uL (130-400); RDW Coefficient of Variation 15.7 % (11.5-14.5); RDW Standard Deviation 45.9 fL (36.4-46.3); Red Blood Count 3.93 M/uL (4.2-5.4); White Blood Count 14.18 K/uL (4.8-10.8)
[2019-05-24 18:38] LABS: Partial Thromboplastin Time 26.2 Seconds (21.0-31.0); Prothrombin Time 10.3 Seconds (9.0-12.0)
[2019-05-24 18:46] LABS: Albumin Level 3.2 gm/dl (3.4-5.0); BUN Creatinine Ratio 9.1 (10-20); Calcium 8.6 mg/dl (8.5-10.1); Creatinine Clr Calc Pharmacy 115.7 ml/min; Est GFR (African American) 102.9; Est GFR (Non-African American) 88.8; Potassium 3.8 mmol/L (3.5-5.1)
[2019-05-24 18:49] LABS: Albumin Globulin Ratio 0.7 (0.9-2); Bilirubin,Total 0.4 mg/dl (0.2-1); Globulin 4.3 gm/dl (2.5-4.0); Total Protein 7.5 gm/dl (6.4-8.2)
--- NOTE | 2019-05-24 19:03 | Emergency Department Note ---
Entered by Micaela Mariano acting as a scribe for History of Present Illness General Chief complaint: Breast Pain/Problems Stated complaint: BREAST ABCESS, FEVER, PAIN, REF BY LEATHA PATTERSON Time Seen by Provider: 05/24/19 17:33 Source: patient History of Present Illness Provider complaint: breast pain Onset (ago): day(s) 1 Location: chest (breast) Pain Consistency: + other (worsening) Maximum Pain Intensity: 7 Associated symptoms: + fever/chills (104 F and 106 F) and + other (redness, tenderness, ) Treatments prior to arrival: NSAID (Tylenol which helped lower fever) The patient is a 29 year old female who presents to the ED with complaints of worsening left breast pain that started 1 day ago. The patient states that she noticed redness and tenderness in her left breast area that has gotten increasingly worse since yesterday. The patient notes that she had a new set of breast implants since January 2018. The patient states that she delivered her third child on May 07, but stopped breast feeding 1.5 weeks ago. The patient states that she took her temperature today and had a reported fever of 104 F and 106 F. The patient states that she took Tylenol which helped to lower the fever. The patient notes that she went to the [facility] in [facility] today and saw a after school driver who referred her to the ED due to concerns of abscess. Home Medications Home Medications Medication Instructions Recorded Confirmed Type Latuda 60 mg PO QPM 05/13/19 05/24/19 History clonidine HCl 0.05 mg PO QPM 05/13/19 05/24/19 History dextroamphetamine-amphetamine 30 mg PO BID 05/13/19 05/24/19 History docusate sodium 100 mg PO BID PRN 05/13/19 05/24/19 History ferrous sulfate 134 mg PO BID 05/13/19 05/24/19 History fluoxetine 40 mg PO QAM 05/13/19 05/24/19 History ibuprofen 600 mg PO Q6H 05/13/19 05/24/19 History omeprazole 40 mg PO QAM 05/13/19 05/24/19 History oxycodone 5 mg PO Q6H PRN 05/13/19 05/24/19 History labetalol 100 mg PO BID #60 tab 05/14/19 05/24/19 Rx alprazolam 1 mg PO DAILY PRN 05/24/19 05/24/19 History dicloxacillin 500 mg PO QID 05/24/19 05/24/19 History Allergies Allergy/AdvReac Type Severity Reaction Status Date / Time almotriptan AdvReac Severe TIGHTNESS Unverified 05/24/19 18:01 IN JAW, CAN'T BREATHE gabapentin AdvReac Severe TIGHTNESS Unverified 05/24/19 18:01 IN JAW, CAN'T BREATHE sumatriptan AdvReac Severe TIGHTNESS Unverified 05/24/19 18:01 IN JAW, CAN'T BREATHE topiramate AdvReac Severe TIGHTNESS Unverified 05/24/19 18:01 IN JAW, CANT BREATHE Past Med/Surg History Medical History hypertension (Acute) Pre-eclampsia, (Acute) Hemorrhoids (Acute) hemorrhage Surgical History H/O dilation and curettage Family History Other No pertinent family history in first degree relatives Social History Preferred Language: Palauan Communication Ability: Effective Operations Support Manager Required: No Beliefs That Will Affect Care: None Current Living Situation: Spouse and Family Feels Safe at Home: Yes Smoking Status: Current every day smoker Second Hand Exposure: No ; Hx Alcohol Use: Yes Alcohol type: wine Hx Substance Use: No Review of Systems See HPI for pertinent positives & negatives. and A total of 10 systems reviewed and were otherwise negative Physical Exam Vital Signs Vital Signs - 24 hr 05/24/19 17:26 05/24/19 19:38 05/24/19 21:48 Temperature 37.2 C 36.8 C Temperature Source Oral Oral Sepsis Recent Fever Within 48 Hours Yes Sepsis New/Unexplained Change in Mental Status Yes Sepsis Action Taken by Nursing No Action Required Pulse Rate 121 H Pulse Rate [Apical] 93 H 97 H Respiratory Rate 18 20 20 Respiratory Effort / Characteristics Non-Labored Spontaneous Non-Labored Spontaneous Respiratory Depth Normal Normal Respiratory Pattern Regular Regular Blood Pressure 142/99 H Blood Pressure [Right Arm] 136/87 125/70 Blood Pressure Mean 113 Blood Pressure Mean [Right Arm] 103 88 Blood Pressure Position [Right Arm] Lying Sitting Pulse Oximetry 98 100 100 Oxygen Delivery Method Room Air Room Air Room Air General: Non-ill appearing young female in no acute distress. HEENT: Normal cephalic atraumatic. Pupils are equal round and reactive to light. Extraocular movements are intact. Oropharynx is pink with moist mucous membranes. No swelling of the mouth lips or tongue. Neck: Supple with a midline trachea. No meningeal signs or stiffness, no JVD or bruits. No Stridor. Chest: Clear to auscultation bilaterally. No wheezes or rhonchi. No increased work of breathing. Breast: (performed in presence of female nurse filament tester) Left breast red and indurated below the nipple, involving bottom half of chest. No drainage. One small pustule under breast. Heart: regular rate and rhythm. Abdomen: Soft nontender, nondistended without rebound guarding or rigidity. Extremities: No cyanosis clubbing or edema. No calf tenderness or asymmetry Spine/Back. Non tender to palpation. No CVA tenderness Skin: Good turgor without rashes. Neurologic exam: Cranial nerves two through 12 are intact. Motor and sensation are intact and symmetrical throughout. Course 173: Past medical records reviewed. The patient was evaluated in room A12. A complete history and physical exam was performed. 1801: I reevaluated the patient and she appears to be comfortable. I reviewed notes from [facility]. 1827: I reevaluated the patient and the IV is established and she is getting pain medication now. 1917: I reevaluated the patient and she is back from [place]. The patient states that she is having more pain so I ordered more Morphine. I will speak to MANAGER COMP[employer] about her. 1925: I discussed the patient's case with Dr. Taylor [facility], MANA[employer]. She will evaluate the patient for further management. Consultations Consultation #1: I discussed the patient's case with Dr. Taylor [facility], [employer]. She will evaluate the patient for further management. Time: 19:26 Administered Medications Acetaminophen (Tylenol) 650 mg PO Q4H PRN PRN Reason: Pain or Fever Stop: 06/23/19 22:18 Last Admin: 05/24/19 22:46 Dose: 650 mg Documented by: [id number] Lactated Ringer's (Lr) 1,000 mls @ 125 mls/hr IV .Q8H CARL Stop: 06/23/19 22:29 Last Admin: 05/24/19 22:46 Dose: 125 mls/hr Documented by: [id number] Discontinued Medications Sodium Chloride (Nss 1000ml) 1,000 mls @ 999 mls/hr IV .Q1H1M ONE Stop: 05/24/19 18:50 Last Infusion: 05/24/19 19:56 Dose: 0 mls/hr Documented by: [id number] Admin: 05/24/19 18:31 Dose: 999 mls/hr Documented by: [id number] Vancomycin HCl 2,000 mg/ (Sodium Chloride) 540 mls @ 200 mls/hr IV NOW ONE Stop: 05/24/19 20:37 Last Infusion: 05/24/19 21:23 Dose: 0 mls/hr Documented by: [id number] Admin: 05/24/19 18:25 Dose: 200 mls/hr Documented by: [id number] Piperacillin Sod/Tazobactam Sod (Zosyn) 4.5 gm in 120 mls @ 240 mls/hr IV NOW ONE Stop: 05/24/19 18:25 Last Infusion: 05/24/19 19:26 Dose: 0 mls/hr Documented by: [id number] Admin: 05/24/19 18:20 Dose: 240 mls/hr Documented by: [id number] Miscellaneous Information (Consult) 1 ea N/A UD PRN PRN Reason: Consult Stop: 06/23/19 17:55 Last Admin: 05/24/19 19:27 Dose: 1 ea Documented by: [id number] Miscellaneous Information (Consult) 1 ea N/A UD PRN PRN Reason: Consult Stop: 06/23/19 17:55 Last Admin: 05/24/19 19:27 Dose: 1 ea Documented by: [id number] Morphine Sulfate (Morphine Sulfate) 4 mg IV NOW STA Stop: 05/24/19 17:52 Last Admin: 05/24/19 18:20 Dose: 4 mg Documented by: [id number] Morphine Sulfate (Morphine Sulfate) 4 mg IV NOW STA Stop: 05/24/19 19:17 Last Admin: 05/24/19 19:29 Dose: 4 mg Documented by: [id number] Morphine Sulfate (Morphine Sulfate) 4 mg IV NOW STA Stop: 05/24/19 21:41 Last Admin: 05/24/19 21:46 Dose: 4 mg Documented by: [id number] Ondansetron HCl (Zofran) 4 mg IV NOW STA Stop: 05/24/19 17:52 Last Admin: 05/24/19 18:20 Dose: 4 mg Documented by: [id number] Medical Decision Making Differential Diagnosis Differentials include mastitis, cellulitis, abscess, post- complications. Medical Records Attestation: I reviewed the patient's medical records. Home Medications Current Medication List: was personally reviewed by me Laboratory Data Attestation: I reviewed the patient's lab results. Result diagrams: 05/24/19 18:02 05/24/19 18:02 Lab Results 05/24/19 05/24/19 05/24/19 Range/Units 18:02 18:02 18:02 WBC 14.18 H (4.8-10.8) K/uL RBC 3.93 L (4.2-5.4) M/uL Hgb 10.2 L (12.0-16.0) g/dL Hct 31.6 L (37-47) % MCV 80.4 (80-100) fL MCH 26.0 (25-34) pg MCHC 32.3 (32-36) g/dL RDW Std Deviation 45.9 (36.4-46.3) fL RDW Coeff of Dax 15.7 H (11.5-14.5) % Plt Count 344 (130-400) K/uL MPV 9.1 (7.4-10.4) fL Immature Gran % (Auto) 0.2 % Neut % (Auto) 78.6 % Lymph % (Auto) 11.8 % [place] % (Auto) 8.1 % Eos % (Auto) 1.2 % Baso % (Auto) 0.1 % Immature Gran # (Auto) 0.03 H (0.00-0.02) K/uL Neut # (Auto) 11.14 H (1.4-6.5) K/uL Lymph # (Auto) 1.67 (1.2-3.4) K/uL [place] # (Auto) 1.15 H (0.11-0.59) K/uL Eos # (Auto) 0.17 (0-0.5) K/uL Baso # (Auto) 0.02 (0-0.2) K/uL PT 10.3 (9.0-12.0) Seconds INR 1.0 (0.9-1.1) APTT 26.2 (21.0-31.0) Seconds PTT Ratio 1.0 Sodium 136 (136-145) mmol/L Potassium 3.8 (3.5-5.1) mmol/L Chloride 103 (98-107) mmol/L Carbon Dioxide 26 (21-32) mmol/L Anion Gap 7.0 (3-11) BUN 8 (7-18) mg/dl Creatinine 0.88 (0.6-1.2) mg/dl Est Cr Clr Drug Dosing 115.7 ml/min Est GFR ( Amer) 102.9 Est GFR (Non-Af Amer) 88.8 BUN/Creatinine Ratio 9.1 L (10-20) Glucose 67 L (70-99) mg/dl Lactate (0.4-2.0) mmol/L Calcium 8.6 (8.5-10.1) mg/dl Total Bilirubin 0.4 (0.2-1) mg/dl AST 13 L (15-37) U/L ALT 17 (12-78) U/L Alkaline Phosphatase 112 (45-117) U/L Total Protein 7.5 (6.4-8.2) gm/dl Albumin 3.2 L (3.4-5.0) gm/dl Globulin 4.3 H (2.5-4.0) gm/dl Albumin/Globulin Ratio 0.7 L (0.9-2) 05/24/19 Range/Units 18:02 WBC (4.8-10.8) K/uL RBC (4.2-5.4) M/uL Hgb (12.0-16.0) g/dL Hct (37-47) % MCV (80-100) fL MCH (25-34) pg MCHC (32-36) g/dL RDW Std Deviation (36.4-46.3) fL RDW Coeff of Dax (11.5-14.5) % Plt Count (130-400) K/uL MPV (7.4-10.4) fL Immature Gran % (Auto) % Neut % (Auto) % Lymph % (Auto) % [place] % (Auto) % Eos % (Auto) % Baso % (Auto) % Immature Gran # (Auto) (0.00-0.02) K/uL Neut # (Auto) (1.4-6.5) K/uL Lymph # (Auto) (1.2-3.4) K/uL [place] # (Auto) (0.11-0.59) K/uL Eos # (Auto) (0-0.5) K/uL Baso # (Auto) (0-0.2) K/uL PT (9.0-12.0) Seconds INR (0.9-1.1) APTT (21.0-31.0) Seconds PTT Ratio Sodium (136-145) mmol/L Potassium (3.5-5.1) mmol/L Chloride (98-107) mmol/L Carbon Dioxide (21-32) mmol/L Anion Gap (3-11) BUN (7-18) mg/dl Creatinine (0.6-1.2) mg/dl Est Cr Clr Drug Dosing ml/min Est GFR ( Amer) Est GFR (Non-Af Amer) BUN/Creatinine Ratio (10-20) Glucose (70-99) mg/dl Lactate 0.8 (0.4-2.0) mmol/L Calcium (8.5-10.1) mg/dl Total Bilirubin (0.2-1) mg/dl AST (15-37) U/L ALT (12-78) U/L Alkaline Phosphatase (45-117) U/L Total Protein (6.4-8.2) gm/dl Albumin (3.4-5.0) gm/dl Globulin (2.5-4.0) gm/dl Albumin/Globulin Ratio (0.9-2) Imaging Data Radiologist's Impression: Radiology results as stated below per my review and the radiologist's interpretation: XR chest 1V portable CLINICAL HISTORY: Sepsis COMPARISON STUDY: 05/14/2019 FINDINGS: The cardiac and mediastinal contours are normal. There is no evidence of focal pulmonary consolidation. There is no evidence of failure. No pleural effusions are visualized.[ IMPRESSION: No active disease in the chest. Electronically signed by: Sd Manzano M.D. 05/24/2019 6:05 PM US breast LT complete CLINICAL HISTORY: Left breast swelling and erythema. Patient is . COMPARISON STUDY: No previous studies for comparison. FINDINGS: There is moderate left breast edema, at the area of clinical concern at the 5 to 8:00 position. There is a small amount of interstitial fluid. There is no well-defined abscess. Note is made of a left breast implant IMPRESSION: 1. Moderate focal edema with evidence of interstitial fluid. No current evidence of a well-defined abscess. Clinical follow-up is advocated. Electronically signed by: Sd Manzano M.D. 05/24/2019 7:11 PM Blood Pressure Blood Pressure Findings: Elevated blood pressure MDM Narrative This patient comes in as described above. She is placed in room B12. Her MANAGER COMPETITIVE INTELL[employer]'s office sent her over after she had a mastitis. They are concerned that she may need IV antibiotics or drainage. She tells me she had a high temperature this morning. She is afebrile here but she is tachycardic. In light of this IV access was established she was hydrated with normal saline. She was given broad-spectrum antibiotic coverage with both IV Zosyn and IV vancomycin. White count is elevated at 14. She was given IV morphine and IV Zofran for pain and nausea management. A full sepsis work-up was obtained. Her lactic acid is not elevated and her pressure has been stable. Ultrasound does not show any definite drainable abscess. I do think she needs to be admitted for IV antibiotics and further monitoring. She may ultimately need surgical consultation as well. I have discussed the case with the MANAGER COMPETITIVE [employer]TELLIGENCE on-call and she has seen the patient in the ER. Impression & Plan Mastitis, Pain of left breast, Cellulitis, Recent childbirth Discharge Plan Visit Data Chief Complaint: Breast Pain/Problems Stated Complaint: BREAST ABCESS, FEVER, PAIN, REF BY DOC, SWELLING ED Provider: Will Valdes Discharge Problem: Mastitis, Pain of left breast, Cellulitis, Recent childbirth Patient Disposition: Being Evaluated by Hospitalist Forms Stand Alone Forms: My [facility] Prescriptions Prescriptions: No Action fluoxetine 40 mg capsule 40 mg PO QAM RF: 0 clonidine HCl 0.1 mg tablet 0.05 mg PO QPM RF: 0 omeprazole 40 mg capsule,delayed release(DR/EC) 40 mg PO QAM RF: 0 docusate sodium 100 mg capsule 100 mg PO BID PRN (Reason: Constipation) RF: 0 ibuprofen 600 mg tablet 600 mg PO Q6H RF: 0 oxycodone 5 mg Tablet 5 mg PO Q6H PRN (Reason: Pain) RF: 0 ferrous sulfate 134 mg (27 mg iron) Tablet 134 mg PO BID RF: 0 Latuda 60 mg tablet 60 mg PO QPM RF: 0 dextroamphetamine-amphetamine 30 mg tablet 30 mg PO BID RF: 0 labetalol 100 mg Tablet 100 mg PO BID Qty: 60 RF: 0 dicloxacillin 500 mg Capsule 500 mg PO QID RF: 0 alprazolam 1 mg tablet 1 mg PO DAILY PRN (Reason: Anxiety) RF: 0 Referrals Referrals: Araseli Zaragoza, DO [Primary Care Provider] - The scribe's documentation has been prepared under my direction and personally reviewed by me in its entirety. I confirm that the note above accurately reflects all work, treatment, procedures, and medical decision making performed by me.
--- NOTE | 2019-05-24 19:12 | Ultrasound Report ---
US breast LT complete CLINICAL HISTORY: Left breast swelling and erythema. Patient is . COMPARISON STUDY: No previous studies for comparison. FINDINGS: There is moderate left breast edema, at the area of clinical concern at the 5 to 8:00 posit ion. There is a small amount of interstitial fluid. There is no well-defined abscess. Note is made of a left breast implant IMPRESSION: 1. Moderate focal edema with evidence of interstitial fluid. No current evidence of a well-defined ab scess. Clinical follow-up is advocated. Electronically signed by: Sd Manzano M.D. 05/24/2019 7:11 PM
[2019-05-24] MEDS ORDERED: LORazepam 0.5 MG TAB PO PRN (22:19)
[2019-05-24] MEDS ORDERED: MAGNESIUM HYDROXIDE SUSP 30 ML UDC PO PRN (22:19)
[2019-05-24] MEDS ORDERED: ONDANSETRON INJ 2 MG/ML 2 ML VIAL IV PRN (22:19)
--- NOTE | 2019-05-24 22:19 | History & Physical Report ---
Date of Service May 24, 2019 Assessment & Plan (1) Mastitis: 29 yo female s/p on 05/07 Now with severe left breast mastitis with quick spread of redness and induration Febrile at home On IV AB by ER team Plan to admit for IV AB Warm compress massage Drain as much as possible G.Surgery consult in am Patient agrees (2) Pain of left breast: History of Present Illness Chief Complaint: Left breast pain Primary Care Provider: Araseli Zaragoza DO The patient is a 29 year old female who is s/p IOL for preeclampsia at 36+ wks and on 05/[address] [facility] which was followed by [facility] for pp hemorrhage. She presents to the ED with complaints of worsening left breast pain that started 2 days ago. The patient states that she noticed redness and tenderness in her left breast area that has gotten increasingly worse since yesterday. It was small lump this morning and it spread to all lower breast and chest within hours. The patient notes that she has had silicone breast implants and revised on January 2018. She stopped breast feeding 1.5 weeks ago. She has not been feeling engorged but her breasts are still producing milk. The patient states that she took her temperature today and had a reported fever of 104 F and 106 F. The patient states that she took Tylenol which helped to lower the fever. The patient notes that she went to the [facility] in [facility] today and saw a tax examining technician who referred her to the ED due to concerns of abscess. She had US today here and no signs of abscess seen. She was started on IV Vancomycin and Zosyn here by ER doctor. Recommended admission for IV AB and G.Surgery consult. She accepted. Allergies Allergy/AdvReac Type Severity Reaction Status Date / Time almotriptan AdvReac Severe TIGHTNESS Unverified 05/24/19 18:01 IN JAW, CAN'T BREATHE gabapentin AdvReac Severe TIGHTNESS Unverified 05/24/19 18:01 IN JAW, CAN'T BREATHE sumatriptan AdvReac Severe TIGHTNESS Unverified 05/24/19 18:01 IN JAW, CAN'T BREATHE topiramate AdvReac Severe TIGHTNESS Unverified 05/24/19 18:01 IN JAW, CANT BREATHE Home Medications Home Medications Medication Instructions Recorded Confirmed Type Latuda 60 mg PO QPM 05/13/19 05/24/19 History clonidine HCl 0.05 mg PO QPM 05/13/19 05/24/19 History dextroamphetamine-amphetamine 30 mg PO BID 05/13/19 05/24/19 History docusate sodium 100 mg PO BID PRN 05/13/19 05/24/19 History ferrous sulfate 134 mg PO BID 05/13/19 05/24/19 History fluoxetine 40 mg PO QAM 05/13/19 05/24/19 History ibuprofen 600 mg PO Q6H 05/13/19 05/24/19 History omeprazole 40 mg PO QAM 05/13/19 05/24/19 History oxycodone 5 mg PO Q6H PRN 05/13/19 05/24/19 History labetalol 100 mg PO BID #60 tab 05/14/19 05/24/19 Rx alprazolam 1 mg PO DAILY PRN 05/24/19 05/24/19 History dicloxacillin 500 mg PO QID 05/24/19 05/24/19 History Patient History Medical History hypertension (Acute) Pre-eclampsia, (Acute) Hemorrhoids (Acute) hemorrhage Surgical History H/O dilation and curettage Family History Other No pertinent family history in first degree relatives Social History Preferred Language: Kiswahili Communication Ability: Effective 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 Beliefs That Will Affect Care: None Current Living Situation: Spouse and Family Feels Safe at Home: Yes Smoking Status: Current every day smoker Second Hand Exposure: No ; Hx Alcohol Use: Yes Alcohol type: wine Hx Substance Use: No OB History 2 FT 1 IOL for preeclampsia Review of Systems All systems reviewed & are unremarkable except as noted in HPI & below + fever, + sweats and + body aches Lochia is minimal Physical Exam Constitutional: WD/WN, vitals as above well developed, well nourished and + ill appearing painful from left breast Chest (Breasts): Breast: normal inspection of breasts (right) and + breast tenderness (left breast tenderness, diffuse redness of lower breast which extends to) Additional Comments: lower skin over chest Induration + Results & Data Vital Signs (Past 12 Hours) Vital Signs Temp Pulse Pulse Resp BP BP Pulse Ox 05/24/19 21:48 97 H 20 125/70 100 05/24/19 19:38 36.8 C 93 H 20 136/87 100 05/24/19 17:26 37.2 C 121 H 18 142/99 H 98 Laboratory Results 05/24/19 05/24/19 05/24/19 Range/Units 18:02 18:02 18:02 WBC (4.8-10.8) K/uL RBC (4.2-5.4) M/uL Hgb (12.0-16.0) g/dL Hct (37-47) % MCV (80-100) fL MCH (25-34) pg MCHC (32-36) g/dL RDW Std Deviation (36.4-46.3) fL RDW Coeff of Dax (11.5-14.5) % Plt Count (130-400) K/uL MPV (7.4-10.4) fL Immature Gran % (Auto) % Neut % (Auto) % Lymph % (Auto) % Lagrange % (Auto) % Eos % (Auto) % Baso % (Auto) % Immature Gran # (Auto) (0.00-0.02) K/uL Neut # (Auto) (1.4-6.5) K/uL Lymph # (Auto) (1.2-3.4) K/uL Lagrange # (Auto) (0.11-0.59) K/uL Eos # (Auto) (0-0.5) K/uL Baso # (Auto) (0-0.2) K/uL PT 10.3 (9.0-12.0) Seconds INR 1.0 (0.9-1.1) APTT 26.2 (21.0-31.0) Seconds PTT Ratio 1.0 Sodium 136 (136-145) mmol/L Potassium 3.8 (3.5-5.1) mmol/L Chloride 103 (98-107) mmol/L Carbon Dioxide 26 (21-32) mmol/L Anion Gap 7.0 (3-11) BUN 8 (7-18) mg/dl Creatinine 0.88 (0.6-1.2) mg/dl Est Cr Clr Drug Dosing 115.7 ml/min Est GFR ( Amer) 102.9 Est GFR (Non-Af Amer) 88.8 BUN/Creatinine Ratio 9.1 L (10-20) Glucose 67 L (70-99) mg/dl Lactate 0.8 (0.4-2.0) mmol/L Calcium 8.6 (8.5-10.1) mg/dl Total Bilirubin 0.4 (0.2-1) mg/dl AST 13 L (15-37) U/L ALT 17 (12-78) U/L Alkaline Phosphatase 112 (45-117) U/L Total Protein 7.5 (6.4-8.2) gm/dl Albumin 3.2 L (3.4-5.0) gm/dl Globulin 4.3 H (2.5-4.0) gm/dl Albumin/Globulin Ratio 0.7 L (0.9-2) 05/24/19 Range/Units 18:02 WBC 14.18 H (4.8-10.8) K/uL RBC 3.93 L (4.2-5.4) M/uL Hgb 10.2 L (12.0-16.0) g/dL Hct 31.6 L (37-47) % MCV 80.4 (80-100) fL MCH 26.0 (25-34) pg MCHC 32.3 (32-36) g/dL RDW Std Deviation 45.9 (36.4-46.3) fL RDW Coeff of Dax 15.7 H (11.5-14.5) % Plt Count 344 (130-400) K/uL MPV 9.1 (7.4-10.4) fL Immature Gran % (Auto) 0.2 % Neut % (Auto) 78.6 % Lymph % (Auto) 11.8 % Lagrange % (Auto) 8.1 % Eos % (Auto) 1.2 % Baso % (Auto) 0.1 % Immature Gran # (Auto) 0.03 H (0.00-0.02) K/uL Neut # (Auto) 11.14 H (1.4-6.5) K/uL Lymph # (Auto) 1.67 (1.2-3.4) K/uL Lagrange # (Auto) 1.15 H (0.11-0.59) K/uL Eos # (Auto) 0.17 (0-0.5) K/uL Baso # (Auto) 0.02 (0-0.2) K/uL PT (9.0-12.0) Seconds INR (0.9-1.1) APTT (21.0-31.0) Seconds PTT Ratio Sodium (136-145) mmol/L Potassium (3.5-5.1) mmol/L Chloride (98-107) mmol/L Carbon Dioxide (21-32) mmol/L Anion Gap (3-11) BUN (7-18) mg/dl Creatinine (0.6-1.2) mg/dl Est Cr Clr Drug Dosing ml/min Est GFR ( Amer) Est GFR (Non-Af Amer) BUN/Creatinine Ratio (10-20) Glucose (70-99) mg/dl Lactate (0.4-2.0) mmol/L Calcium (8.5-10.1) mg/dl Total Bilirubin (0.2-1) mg/dl AST (15-37) U/L ALT (12-78) U/L Alkaline Phosphatase (45-117) U/L Total Protein (6.4-8.2) gm/dl Albumin (3.4-5.0) gm/dl Globulin (2.5-4.0) gm/dl Albumin/Globulin Ratio (0.9-2)
[2019-05-24] MEDS: ACETAMINOPHEN 325 MG TAB PO PRN (22:46)
[2019-05-24] MEDS: LACTATED RINGER'S 1,000 ML IV SCH (22:46)
[2019-05-25] MEDS: MoRPHine SULFATE 4 MG/ML 1 ML CARP\\VIAL IV PRN ×8 (00:14→23:14)
[2019-05-25] MEDS: VANCOMYCIN HCL 1,500 MG in SODIUM CHLORIDE 0.9% 500 ML IV SCH ×3 (00:32→17:04)
[2019-05-25] MEDS: BROMOCRIPTINE MESYLATE 2.5 MG TAB PO SCH ×3 (02:24→19:39)
[2019-05-25] MEDS: ACETAMINOPHEN 325 MG TAB PO PRN ×3 (05:57→17:13)
[2019-05-25 06:10] LABS: Basophils # (auto) 0.02 K/uL (0-0.2); Basophils % (auto) 0.2 %; Eosinophils % (auto) 1.9 %; Hematocrit (blood only) 28.3 % (37-47); Hemoglobin 8.9 g/dL (12.0-16.0); Immature Granulocytes # (auto) 0.02 K/uL (0.00-0.02); Immature Granulocytes % (auto) 0.2 %; Lymphocytes # (auto) 1.58 K/uL (1.2-3.4); Lymphocytes % (auto) 15.1 %; Mean Corpuscular Hemoglobin 25.6 pg (25-34); Mean Corpuscular Hgb Conc 31.4 g/dL (32-36); Mean Corpuscular Volume 81.6 fL (80-100); Mean Platelet Volume 9.2 fL (7.4-10.4); Monocytes # (auto) 0.97 K/uL (0.11-0.59); Monocytes % (auto) 9.3 %; Neutrophils # (auto) 7.64 K/uL (1.4-6.5); Neutrophils % (auto) 73.3 %; Platelet Count 287 K/uL (130-400); RDW Coefficient of Variation 15.9 % (11.5-14.5); RDW Standard Deviation 47.1 fL (36.4-46.3); Red Blood Count 3.47 M/uL (4.2-5.4); White Blood Count 10.43 K/uL (4.8-10.8)
[2019-05-25 06:39] LABS: Creatinine Clr Calc Pharmacy 135.8 ml/min; Est GFR (African American) 124.8; Est GFR (Non-African American) 107.7
[2019-05-25] MEDS: PANTOprazole 40 MG TAB PO SCH (07:39)
[2019-05-25] MEDS: FLUOXETINE HCL 20 MG CAP PO SCH (07:39)
[2019-05-25] MEDS: FERROUS SULFATE 325 MG TAB PO SCH ×2 (07:39→19:38)
--- NOTE | 2019-05-25 07:48 | Surgery Consultation ---
Date of Consultation May 25, 2019 Assessment & Plan (1) Mastitis: currently on Vancomycin- no overt evidence of abscess monitor for improvement/ worsening- ask I/D to see for atbx choices- will likely need 10-14 days of atbx consider rescan/ aspiration prior to surgical I/D- possibly at [facility]- Stable, afeb at present History of Present Illness Attending Physician: Taran Crystal MD History of Present Illness pt admitted with Lt mastitis, Lt breast pain 2-3 days fever at home, no drainage 05/07/19- delivery at [facility] adm and 2 u RBCs h/o breast implants u/s Lt breast- edema, no overt fluid collection Allergies Allergy/AdvReac Type Severity Reaction Status Date / Time almotriptan AdvReac Severe TIGHTNESS Unverified 05/24/19 18:01 IN JAW, CAN'T BREATHE gabapentin AdvReac Severe TIGHTNESS Unverified 05/24/19 18:01 IN JAW, CAN'T BREATHE sumatriptan AdvReac Severe TIGHTNESS Unverified 05/24/19 18:01 IN JAW, CAN'T BREATHE topiramate AdvReac Severe TIGHTNESS Unverified 05/24/19 18:01 IN JAW, CANT BREATHE Home Medications Home Medications Medication Instructions Recorded Confirmed Type Latuda 60 mg PO QPM 05/13/19 05/24/19 History clonidine HCl 0.05 mg PO QPM 05/13/19 05/24/19 History dextroamphetamine-amphetamine 30 mg PO BID 05/13/19 05/24/19 History docusate sodium 100 mg PO BID PRN 05/13/19 05/24/19 History ferrous sulfate 134 mg PO BID 05/13/19 05/24/19 History fluoxetine 40 mg PO QAM 05/13/19 05/24/19 History ibuprofen 600 mg PO Q6H 05/13/19 05/24/19 History omeprazole 40 mg PO QAM 05/13/19 05/24/19 History oxycodone 5 mg PO Q6H PRN 05/13/19 05/24/19 History labetalol 100 mg PO BID #60 tab 05/14/19 05/24/19 Rx alprazolam 1 mg PO DAILY PRN 08/20/19 08/20/19 History dicloxacillin 500 mg PO QID 05/24/19 05/24/19 History Patient History Medical History hypertension (Acute) Pre-eclampsia, (Acute) Hemorrhoids (Acute) hemorrhage Surgical History H/O dilation and curettage Family History Other No pertinent family history in first degree relatives Social History Preferred Language: Turkmen Communication Ability: Effective 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 Beliefs That Will Affect Care: None Current Living Situation: Family Other Information That Helps Us Care for You: No Feels Safe at Home: Yes Smoking Status: Current every day smoker Tobacco Type: cigarettes ; Do You Dip or Chew Tobacco: No ; Second Hand Exposure: No ; Tobacco Cessation Education Requested by Patient: No Hx Alcohol Use: Yes Alcohol type: beer and wine Hx Substance Use: No Review of Systems Review of Systems: All systems reviewed & are unremarkable except as noted in HPI & below Physical Exam Physical Exam: Lt breast erythema 5-8:00- marked skin viable, not shiny - no fluctuance tender, indurated Constitutional: well developed and well nourished; no acute distress Respiratory: normal respiratory effort; no respiratory distress Cardiovascular: Rate/Rhythm: regular rate and regular rhythm Chest (Breasts): Additional Comments: see above Gastrointestinal (Abdomen): Percussion/Palpation: abdomen soft Musculoskeletal: Head/Neck/Chest: head atraumatic Skin: no rashes, warm and dry Neurologic: awake Psychiatric: Orientation: alert Results & Data Vital Signs (Past 12 Hours) Vital Signs Temp Pulse Pulse Resp BP Pulse Ox Pulse Ox 05/25/19 07:08 37.1 C 104 H 18 115/74 97 05/25/19 03:20 36.8 C 96 H 20 103/70 97 97 05/24/19 23:55 37.0 C 98 H 18 109/69 98 05/24/19 23:45 98 05/24/19 21:48 97 H 20 125/70 100 reviewed U/S PG Care Time/CCT Total # of Minutes Spent Total Time Spent with Patient: Total time spent is greater than 50% in coordination of care (as documented) at patient's floor/unit and/or counseling patient:
[2019-05-25] MEDS ORDERED: IBUPROFEN 600 MG TAB PO ONE (08:07)
[2019-05-25] MEDS: IBUPROFEN 600 MG TAB PO PRN ×2 (08:11→14:54)
--- NOTE | 2019-05-25 09:42 | Infectious Disease Consult ---
Date of Consultation May 25, 2019 Assessment & Plan (1) Mastitis: Patient with acute left mastitis, most likely pathogen is staph, agree with vancomycin pending further culture results. Length of IV antibiotics will be determined by clinical response. Will discuss with all involved. Will follow. History of Present Illness Reason for Consultation: Left mastitis, currently on vancomycin, antibiotic choices Attending Physician: Taran Crystal MD History of Present Illness 29-year-old female who is status post recent delivery for preeclampsia, complicated by hemorrhage, now admitted with 4-day history of progressively worsening left breast redness, swelling, and tenderness associated with fever as high as 104 degrees with chills. Was found to have evidence of mastitis and cellulitis, has been started empirically on IV vancomycin. Blood cultures are pending. Ultrasound shows no evidence of abscess formation. Has been seen by surgery who recommends IV antibiotics and feels surgical intervention not necessary at present. Pain currently 6-7 out of 10 left breast. Allergies Allergy/AdvReac Type Severity Reaction Status Date / Time almotriptan AdvReac Severe TIGHTNESS Unverified 05/24/19 18:01 IN JAW, CAN'T BREATHE gabapentin AdvReac Severe TIGHTNESS Unverified 05/24/19 18:01 IN JAW, CAN'T BREATHE sumatriptan AdvReac Severe TIGHTNESS Unverified 05/24/19 18:01 IN JAW, CAN'T BREATHE topiramate AdvReac Severe TIGHTNESS Unverified 05/24/19 18:01 IN JAW, CANT BREATHE Home Medications Home Medications Medication Instructions Recorded Confirmed Type Latuda 60 mg PO QPM 05/13/19 05/24/19 History clonidine HCl 0.05 mg PO QPM 05/13/19 05/24/19 History dextroamphetamine-amphetamine 30 mg PO BID 05/13/19 05/24/19 History docusate sodium 100 mg PO BID PRN 05/13/19 05/24/19 History ferrous sulfate 134 mg PO BID 05/13/19 05/24/19 History fluoxetine 40 mg PO QAM 05/13/19 05/24/19 History ibuprofen 600 mg PO Q6H 05/13/19 05/24/19 History omeprazole 40 mg PO QAM 05/13/19 05/24/19 History oxycodone 5 mg PO Q6H PRN 05/13/19 05/24/19 History labetalol 100 mg PO BID #60 tab 05/14/19 05/24/19 Rx alprazolam 1 mg PO DAILY PRN 05/24/19 05/24/19 History dicloxacillin 500 mg PO QID 05/24/19 05/24/19 History Patient History Medical History hypertension (Acute) Pre-eclampsia, (Acute) Hemorrhoids (Acute) hemorrhage Surgical History H/O dilation and curettage Family History Other No pertinent family history in first degree relatives Social History Preferred Language: Libyan Communication Ability: Effective Pattern Cutter Required: No Beliefs That Will Affect Care: None Current Living Situation: Family Feels Safe at Home: Yes Smoking Status: Current every day smoker Tobacco Type: cigarettes ; Second Hand Exposure: No ; Hx Alcohol Use: Yes Alcohol type: beer and wine Hx Substance Use: No Review of Systems Review of Systems: All systems reviewed & are unremarkable except as noted in HPI & below Physical Exam Constitutional: WD/WN, vitals as above comfortable; no acute distress Eyes: PERRL, conjunctivae normal, anicteric sclerae ENMT: external ear and nose normal, oropharynx normal Neck: trachea midline, no thyromegaly neck nontender Respiratory: normal respiratory effort, lungs clear to auscultation normal percussion; does not use accessory muscles Cardiovascular: Rate/Rhythm: regular rate and regular rhythm Heart Sounds: normal S1 and normal S2; no gallop, no murmur and no cardiac rub Vessels: normal peripheral pulses; no JVD Gastrointestinal (Abdomen): normal bowel sounds, soft, nontender, no hepatosplenomegaly Musculoskeletal: no cyanosis or clubbing, extremities motor strength 5/5 Spine: thoracic spine normal to inspection and lumbar spine normal to inspection; no cervical spinal tenderness Skin: normal turgor and + erythema (Left breast and chest wall); no rashes Neurologic: patellar DTR's 2+ bilat, sensation intact no focal motor deficits Psychiatric: A+Ox3, euthymic affect Orientation: cooperative Lymphatic: no cervical or axillary lymphadenopathy no inguinal lymphadenopathy Results & Data Vital Signs (Past 12 Hours) Vital Signs Temp Pulse Pulse Resp BP Pulse Ox Pulse Ox 05/25/19 07:08 37.1 C 104 H 18 115/74 97 05/25/19 03:20 36.8 C 96 H 20 103/70 97 97 05/24/19 23:55 37.0 C 98 H 18 109/69 98 05/24/19 23:45 98 05/24/19 21:48 97 H 20 125/70 100 Laboratory Results Laboratory Results - last 48 hr 05/24/19 05/24/19 05/24/19 18:02 18:02 18:02 WBC 14.18 H RBC 3.93 L Hgb 10.2 L Hct 31.6 L MCV 80.4 MCH 26.0 MCHC 32.3 RDW Std Deviation 45.9 RDW Coeff of Dax 15.7 H Plt Count 344 MPV 9.1 Immature Gran % (Auto) 0.2 Neut % (Auto) 78.6 Lymph % (Auto) 11.8 Webb % (Auto) 8.1 Eos % (Auto) 1.2 Baso % (Auto) 0.1 Immature Gran # (Auto) 0.03 H Neut # (Auto) 11.14 H Lymph # (Auto) 1.67 Webb # (Auto) 1.15 H Eos # (Auto) 0.17 Baso # (Auto) 0.02 PT 10.3 INR 1.0 APTT 26.2 PTT Ratio 1.0 Sodium 136 Potassium 3.8 Chloride 103 Carbon Dioxide 26 Anion Gap 7.0 BUN 8 Creatinine 0.88 Est Cr Clr Drug Dosing 115.7 Est GFR ( Amer) 102.9 Est GFR (Non-Af Amer) 88.8 BUN/Creatinine Ratio 9.1 L Glucose 67 L Lactate Calcium 8.6 Total Bilirubin 0.4 AST 13 L ALT 17 Alkaline Phosphatase 112 Total Protein 7.5 Albumin 3.2 L Globulin 4.3 H Albumin/Globulin Ratio 0.7 L Vancomycin Trough 05/24/19 05/25/19 05/25/19 18:02 05:53 05:53 WBC 10.43 RBC 3.47 L Hgb 8.9 L Hct 28.3 L MCV 81.6 MCH 25.6 MCHC 31.4 L RDW Std Deviation 47.1 H RDW Coeff of Dax 15.9 H Plt Count 287 MPV 9.2 Immature Gran % (Auto) 0.2 Neut % (Auto) 73.3 Lymph % (Auto) 15.1 Webb % (Auto) 9.3 Eos % (Auto) 1.9 Baso % (Auto) 0.2 Immature Gran # (Auto) 0.02 Neut # (Auto) 7.64 H Lymph # (Auto) 1.58 Webb # (Auto) 0.97 H Eos # (Auto) 0.20 Baso # (Auto) 0.02 PT INR APTT PTT Ratio Sodium Potassium Chloride Carbon Dioxide Anion Gap BUN Creatinine 0.75 Est Cr Clr Drug Dosing 135.8 Est GFR ( Amer) 124.8 Est GFR (Non-Af Amer) 107.7 BUN/Creatinine Ratio Glucose Lactate 0.8 Calcium Total Bilirubin AST ALT Alkaline Phosphatase Total Protein Albumin Globulin Albumin/Globulin Ratio Vancomycin Trough 05/25/19 15:39 WBC RBC Hgb Hct MCV MCH MCHC RDW Std Deviation RDW Coeff of Dax Plt Count MPV Immature Gran % (Auto) Neut % (Auto) Lymph % (Auto) Webb % (Auto) Eos % (Auto) Baso % (Auto) Immature Gran # (Auto) Neut # (Auto) Lymph # (Auto) Webb # (Auto) Eos # (Auto) Baso # (Auto) PT INR APTT PTT Ratio Sodium Potassium Chloride Carbon Dioxide Anion Gap BUN Creatinine Est Cr Clr Drug Dosing Est GFR ( Amer) Est GFR (Non-Af Amer) BUN/Creatinine Ratio Glucose Lactate Calcium Total Bilirubin AST ALT Alkaline Phosphatase Total Protein Albumin Globulin Albumin/Globulin Ratio Vancomycin Trough 18.1 Diagnostic Findings Microbiology 05/24/19 18:02 Blood Aerobic Blood Culture - Preliminary No growth in Aerobic bottle after 24 hours. 05/24/19 18:02 Blood Anaerobic Blood Culture - Preliminary No growth in Anaerobic bottle after 24 hours. 05/24/19 18:21 Blood Aerobic Blood Culture - Preliminary No growth in Aerobic bottle after 24 hours. 05/24/19 18:21 Blood Anaerobic Blood Culture - Preliminary No growth in Anaerobic bottle after 24 hours. cc: ~ US breast LT complete CLINICAL HISTORY: Left breast swelling and erythema. Patient is . COMPARISON STUDY: No previous studies for comparison. FINDINGS: There is moderate left breast edema, at the area of clinical concern at the 5 to 8:00 position. There is a small amount of interstitial fluid. There is no well-defined abscess. Note is made of a left breast implant IMPRESSION: 1. Moderate focal edema with evidence of interstitial fluid. No current evidence of a well-defined abscess. Clinical follow-up is advocated. Electronically signed by: Sd Manzano M.D. 05/24/2019 7:11 PM Dictated: [id number] Transcribed: [id number]/24/[id number] PG Care Time/CCT Total # of Minutes Spent Total Time Spent with Patient: Total time spent is greater than 50% in coordination of care (as documented) at patient's floor/unit and/or counseling patient:
--- NOTE | 2019-05-25 09:59 | Obstetrical Progress Note ---
Date of Service May 25, 2019 Physical Exam Physical Exam: large area of redness under left breast on iv vancomycin surgical consult done presently afebrile Results & Data Vital Signs (Past 12 Hours) Vital Signs Temp Pulse Resp BP Pulse Ox Pulse Ox 05/25/19 07:08 37.1 C 104 H 18 115/74 97 05/25/19 03:20 36.8 C 96 H 20 103/70 97 97 05/24/19 23:55 37.0 C 98 H 18 109/69 98 05/24/19 23:45 98
[2019-05-25] MEDS ORDERED: VANCOMYCIN TROUGH ONE (15:30)
[2019-05-25] MEDS: DOCUSATE SODIUM 100 MG CAP PO PRN (15:43)
[2019-05-25] MEDS: LURASIDONE HCL 40 MG TAB PO SCH (19:39)
[2019-05-25] MEDS: cloNIDine HCl 0.1 MG TAB PO SCH (19:39)
--- NOTE | 2019-05-25 21:03 | Pharmacy Report ---
Pharmacy Abx Initial Consult - Date of Service May 25, 2019 - Pharmacy Dosing Scope Date of Consult: 05/24/19 Consultation requested by: Dr. Huston Pharmacy is consulted to initiate vancomycin IV dosing therapy, order appropriate labs and adjust drug dose/frequency. - Subjective The patient is a 29 year old F admitted on 05/24/19 22:19 with mastitis. - Objective Height: 5 ft 8 in Weight: 98.4 kg Vital Signs (Past 12hrs): Vital Signs Temp Pulse Resp BP Pulse Ox 05/25/19 16:12 36.8 C 84 18 132/82 98 05/25/19 12:00 36.7 C 89 18 123/81 98 Lab Results (24hrs): Laboratory Tests (24 Hours) 05/25/19 05/25/19 05/25/19 15:39 05:53 05:53 WBC 10.43 Neut # (Auto) 7.64 H Creatinine 0.75 Est Cr Clr Drug Dosing 135.8 Vancomycin Trough 18.1 - Risk Factors for Resistance recent delivery of baby - 05/07/19 - Assessment & Plan Assessment 29 year old F admitted with mastitis Plan vancomycin for treatment of mastitis Vancomycin IV * Estimated PK Parameters: Vd 0.7 L/kg, Raoul 0.09 hr-1, t1/2 7.7 hr * Loading dose: 2000 mg (20 mg/kg) * Maintenance dose: 1500 mg IV (15 mg/kg) every 8 hours * Goal trough level for mastitis : ~15 mcg/mL * Trough level prior to 1600 dose today was 18.1 mcg/mL. The dose was NOT adjusted at that point because the level was not back. The laboratory was having issues with the machine. The results were available later in the even ing. Slight concern for accumulation - patient is about 3 weeks post- and slightly "obese" per BMI guidelines. * Reduce dose to vancomycin 1500 mg IV q10 hours; trough 1000 AM on 05/27/19 Pharmacy will continue to follow and will adjust dose/frequency as necessary. Thank you.
[2019-05-25] MEDS: LACTATED RINGER'S 1,000 ML IV SCH (21:30)
[2019-05-26] MEDS: IBUPROFEN 600 MG TAB PO PRN ×4 (01:57→21:27)
[2019-05-26] MEDS: MoRPHine SULFATE 4 MG/ML 1 ML CARP\\VIAL IV PRN ×3 (01:57→08:25)
[2019-05-26] MEDS: ACETAMINOPHEN 325 MG TAB PO PRN ×2 (03:24→12:36)
[2019-05-26] MEDS: VANCOMYCIN HCL 1,500 MG in SODIUM CHLORIDE 0.9% 500 ML IV SCH ×3 (04:13→23:25)
[2019-05-26 07:18] LABS: Creatinine Clr Calc Pharmacy 159.1 ml/min; Est GFR (African American) 139.8; Est GFR (Non-African American) 120.6
--- NOTE | 2019-05-26 07:41 | Surgery Progress Note ---
Date of Service May 26, 2019 Assessment & Plan (1) Mastitis: Lt breast mastitis much improved from yesterday- less cellulitis no overt fluctuance or drainage has appt for reimaging and possible aspiration if abscess found- at [facility]- next door (tomorrow) aspiration treatment of choice if small collection present Results & Data Vital Signs (Past 12 Hours) Vital Signs Temp Pulse Resp BP Pulse Ox 05/26/19 04:15 37.2 C 95 H 16 135/78 96 05/25/19 23:10 37.1 C 105 H 18 135/85 97 PG Care Time/CCT Total # of Minutes Spent Total Time Spent with Patient: Total time spent is greater than 50% in coordination of care (as documented) at patient's floor/unit and/or counseling patient:
[2019-05-26] MEDS: FERROUS SULFATE 325 MG TAB PO SCH ×2 (08:25→19:57)
[2019-05-26] MEDS: LACTATED RINGER'S 1,000 ML IV SCH ×2 (08:25→19:56)
[2019-05-26] MEDS: BROMOCRIPTINE MESYLATE 2.5 MG TAB PO SCH ×2 (08:26→19:57)
[2019-05-26] MEDS: PANTOprazole 40 MG TAB PO SCH (08:26)
[2019-05-26] MEDS: FLUOXETINE HCL 20 MG CAP PO SCH (08:26)
--- NOTE | 2019-05-26 11:11 | Surgery Progress Note ---
Date of Service May 26, 2019 Subjective feeling somewhat improved Physical Exam Constitutional: WD/WN, vitals as above comfortable right breast is normal left breast has indurated erythematous area on inferior margin of breast fold in semilunar fashion with no drainage noted. This area seems tender to palpation. Will continue IV antibiotics plan ultrasound of breast at breast center pending Results & Data Vital Signs (Past 12 Hours) Vital Signs Temp Pulse Resp BP Pulse Ox 05/26/19 08:15 37.1 C 84 15 121/77 98 05/26/19 04:15 37.2 C 95 H 16 135/78 96 05/25/19 23:10 37.1 C 105 H 18 135/85 97 Laboratory Results Laboratory Results - last 48 hr 05/24/19 05/24/19 05/24/19 18:02 18:02 18:02 WBC 14.18 H RBC 3.93 L Hgb 10.2 L Hct 31.6 L MCV 80.4 MCH 26.0 MCHC 32.3 RDW Std Deviation 45.9 RDW Coeff of Dax 15.7 H Plt Count 344 MPV 9.1 Immature Gran % (Auto) 0.2 Neut % (Auto) 78.6 Lymph % (Auto) 11.8 [place] % (Auto) 8.1 Eos % (Auto) 1.2 Baso % (Auto) 0.1 Immature Gran # (Auto) 0.03 H Neut # (Auto) 11.14 H Lymph # (Auto) 1.67 [place] # (Auto) 1.15 H Eos # (Auto) 0.17 Baso # (Auto) 0.02 PT 10.3 INR 1.0 APTT 26.2 PTT Ratio 1.0 Sodium 136 Potassium 3.8 Chloride 103 Carbon Dioxide 26 Anion Gap 7.0 BUN 8 Creatinine 0.88 Est Cr Clr Drug Dosing 115.7 Est GFR ( Amer) 102.9 Est GFR (Non-Af Amer) 88.8 BUN/Creatinine Ratio 9.1 L Glucose 67 L Lactate Calcium 8.6 Total Bilirubin 0.4 AST 13 L ALT 17 Alkaline Phosphatase 112 Total Protein 7.5 Albumin 3.2 L Globulin 4.3 H Albumin/Globulin Ratio 0.7 L Vancomycin Trough 05/24/19 05/25/19 05/25/19 18:02 05:53 05:53 WBC 10.43 RBC 3.47 L Hgb 8.9 L Hct 28.3 L MCV 81.6 MCH 25.6 MCHC 31.4 L RDW Std Deviation 47.1 H RDW Coeff of Dax 15.9 H Plt Count 287 MPV 9.2 Immature Gran % (Auto) 0.2 Neut % (Auto) 73.3 Lymph % (Auto) 15.1 [place] % (Auto) 9.3 Eos % (Auto) 1.9 Baso % (Auto) 0.2 Immature Gran # (Auto) 0.02 Neut # (Auto) 7.64 H Lymph # (Auto) 1.58 [place] # (Auto) 0.97 H Eos # (Auto) 0.20 Baso # (Auto) 0.02 PT INR APTT PTT Ratio Sodium Potassium Chloride Carbon Dioxide Anion Gap BUN Creatinine 0.75 Est Cr Clr Drug Dosing 135.8 Est GFR ( Amer) 124.8 Est GFR (Non-Af Amer) 107.7 BUN/Creatinine Ratio Glucose Lactate 0.8 Calcium Total Bilirubin AST ALT Alkaline Phosphatase Total Protein Albumin Globulin Albumin/Globulin Ratio Vancomycin Trough 05/25/19 05/26/19 15:39 06:01 WBC RBC Hgb Hct MCV MCH MCHC RDW Std Deviation RDW Coeff of Dax Plt Count MPV Immature Gran % (Auto) Neut % (Auto) Lymph % (Auto) [place] % (Auto) Eos % (Auto) Baso % (Auto) Immature Gran # (Auto) Neut # (Auto) Lymph # (Auto) [place] # (Auto) Eos # (Auto) Baso # (Auto) PT INR APTT PTT Ratio Sodium Potassium Chloride Carbon Dioxide Anion Gap BUN Creatinine 0.64 Est Cr Clr Drug Dosing 159.1 Est GFR ( Amer) 139.8 Est GFR (Non-Af Amer) 120.6 BUN/Creatinine Ratio Glucose Lactate Calcium Total Bilirubin AST ALT Alkaline Phosphatase Total Protein Albumin Globulin Albumin/Globulin Ratio Vancomycin Trough 18.1
[2019-05-26] MEDS: OXYCODONE/ACETAMINOPHEN 5mg/325mg TAB PO PRN ×3 (11:41→21:27)
--- NOTE | 2019-05-26 14:39 | Infectious Disease Progress Nt ---
Date of Service May 26, 2019 Assessment & Plan (1) Mastitis: Patient with acute left mastitis, most likely pathogen is staph, appears to be responding to vancomycin. Would give at least another 24 hours of IV antibiotics, and will determine tomorrow whether can transition to oral or not. Will follow. Subjective Patient seen in follow-up for left mastitis and breast cellulitis. Feeling somewhat better today, less pain in her left chest wall. No fever. Tolerating vancomycin without apparent difficulty. Blood cultures remain negative. Review of Systems Review of Systems: All systems reviewed & are unremarkable except as noted in HPI & below Physical Exam Constitutional: WD/WN, vitals as above comfortable; no acute distress Eyes: PERRL, conjunctivae normal, anicteric sclerae ENMT: external ear and nose normal, oropharynx normal Neck: trachea midline, no thyromegaly neck nontender Respiratory: normal respiratory effort, lungs clear to auscultation normal percussion; does not use accessory muscles Cardiovascular: Rate/Rhythm: regular rate and regular rhythm Heart Sounds: normal S1 and normal S2; no gallop, no murmur and no cardiac rub Vessels: normal peripheral pulses; no JVD Gastrointestinal (Abdomen): normal bowel sounds, soft, nontender, no hepatosplenomegaly Musculoskeletal: no cyanosis or clubbing, extremities motor strength 5/5 Spine: thoracic spine normal to inspection and lumbar spine normal to inspection; no cervical spinal tenderness Skin: normal turgor and + erythema (Left breast and chest wall); no rashes Neurologic: patellar DTR's 2+ bilat, sensation intact no focal motor deficits Psychiatric: A+Ox3, euthymic affect Orientation: cooperative Lymphatic: no cervical or axillary lymphadenopathy no inguinal lymphadenopathy Results & Data Vital Signs (Past 12 Hours) Vital Signs Temp Pulse Resp BP Pulse Ox 05/26/19 12:05 36.9 C 85 16 132/84 97 05/26/19 08:15 37.1 C 84 15 121/77 98 05/26/19 04:15 37.2 C 95 H 16 135/78 96 Laboratory Results [facility] 05/26/19 06:01 Creatinine 0.64 Diagnostic Findings Microbiology 05/24/19 18:02 Blood Aerobic Blood Culture - Preliminary No growth in Aerobic bottle after 24 hours. 05/24/19 18:02 Blood Anaerobic Blood Culture - Preliminary No growth in Anaerobic bottle after 24 hours. 05/24/19 18:21 Blood Aerobic Blood Culture - Preliminary No growth in Aerobic bottle after 24 hours. 05/24/19 18:21 Blood Anaerobic Blood Culture - Preliminary No growth in Anaerobic bottle after 24 hours. PG Care Time/CCT Total # of Minutes Spent Total Time Spent with Patient: Total time spent is greater than 50% in coordination of care (as documented) at patient's floor/unit and/or counseling patient:
[2019-05-26] MEDS: LURASIDONE HCL 40 MG TAB PO SCH (19:57)
[2019-05-26] MEDS: cloNIDine HCl 0.1 MG TAB PO SCH (19:57)
[2019-05-27] MEDS: IBUPROFEN 600 MG TAB PO PRN ×2 (03:44→09:46)
[2019-05-27] MEDS: OXYCODONE/ACETAMINOPHEN 5mg/325mg TAB PO PRN ×3 (03:44→12:20)
[2019-05-27] MEDS: LACTATED RINGER'S 1,000 ML IV SCH (06:27)
--- NOTE | 2019-05-27 06:34 | Surgery Progress Note ---
Date of Service May 27, 2019 Assessment & Plan (1) Mastitis: serous drainage overnight- purulent this am- via 1 mm opening- very tender fluid cultured some epidermal peeling from resolving cellulitis- expected, lower breast erythema will need OR I/Drainage today- poorly tolerated manipulation at bedside I want U/S done first as she may have second area of fluid- will check on this later this am . NPO for now. Results & Data Vital Signs (Past 12 Hours) Vital Signs Temp Pulse Resp BP Pulse Ox 05/27/19 03:45 37.1 C 85 16 118/78 98 05/26/19 23:25 37.3 C 81 18 124/76 97 05/26/19 19:45 36.9 C 88 18 131/75 99 PG Care Time/CCT Total # of Minutes Spent Total Time Spent with Patient: Total time spent is greater than 50% in coordination of care (as documented) at patient's floor/unit and/or counseling patient:
--- NOTE | 2019-05-27 08:38 | Surgery Progress Note ---
Date of Service May 27, 2019 Physical Exam Constitutional: WD/WN, vitals as above comfortable Breast draining and cultured breast ultrasound pending discussed with Dr. Flower patient will have I&D in OR today after ultrasound completed NPO Results & Data Vital Signs (Past 12 Hours) Vital Signs Temp Pulse Resp BP Pulse Ox 05/27/19 07:42 36.9 C 77 20 133/87 97 05/27/19 03:45 37.1 C 85 16 118/78 98 05/26/19 23:25 37.3 C 81 18 124/76 97 Laboratory Results Laboratory Results - last 72 hr 05/24/19 05/24/19 05/24/19 18:02 18:02 18:02 WBC 14.18 H RBC 3.93 L Hgb 10.2 L Hct 31.6 L MCV 80.4 MCH 26.0 MCHC 32.3 RDW Std Deviation 45.9 RDW Coeff of Dax 15.7 H Plt Count 344 MPV 9.1 Immature Gran % (Auto) 0.2 Neut % (Auto) 78.6 Lymph % (Auto) 11.8 [place] % (Auto) 8.1 Eos % (Auto) 1.2 Baso % (Auto) 0.1 Immature Gran # (Auto) 0.03 H Neut # (Auto) 11.14 H Lymph # (Auto) 1.67 [place] # (Auto) 1.15 H Eos # (Auto) 0.17 Baso # (Auto) 0.02 PT 10.3 INR 1.0 APTT 26.2 PTT Ratio 1.0 Sodium 136 Potassium 3.8 Chloride 103 Carbon Dioxide 26 Anion Gap 7.0 BUN 8 Creatinine 0.88 Est Cr Clr Drug Dosing 115.7 Est GFR ( Amer) 102.9 Est GFR (Non-Af Amer) 88.8 BUN/Creatinine Ratio 9.1 L Glucose 67 L Lactate Calcium 8.6 Total Bilirubin 0.4 AST 13 L ALT 17 Alkaline Phosphatase 112 Total Protein 7.5 Albumin 3.2 L Globulin 4.3 H Albumin/Globulin Ratio 0.7 L Vancomycin Trough 05/24/19 05/25/19 05/25/19 18:02 05:53 05:53 WBC 10.43 RBC 3.47 L Hgb 8.9 L Hct 28.3 L MCV 81.6 MCH 25.6 MCHC 31.4 L RDW Std Deviation 47.1 H RDW Coeff of Dax 15.9 H Plt Count 287 MPV 9.2 Immature Gran % (Auto) 0.2 Neut % (Auto) 73.3 Lymph % (Auto) 15.1 [place] % (Auto) 9.3 Eos % (Auto) 1.9 Baso % (Auto) 0.2 Immature Gran # (Auto) 0.02 Neut # (Auto) 7.64 H Lymph # (Auto) 1.58 [place] # (Auto) 0.97 H Eos # (Auto) 0.20 Baso # (Auto) 0.02 PT INR APTT PTT Ratio Sodium Potassium Chloride Carbon Dioxide Anion Gap BUN Creatinine 0.75 Est Cr Clr Drug Dosing 135.8 Est GFR ( Amer) 124.8 Est GFR (Non-Af Amer) 107.7 BUN/Creatinine Ratio Glucose Lactate 0.8 Calcium Total Bilirubin AST ALT Alkaline Phosphatase Total Protein Albumin Globulin Albumin/Globulin Ratio Vancomycin Trough 05/25/19 05/26/19 15:39 06:01 WBC RBC Hgb Hct MCV MCH MCHC RDW Std Deviation RDW Coeff of Dax Plt Count MPV Immature Gran % (Auto) Neut % (Auto) Lymph % (Auto) [place] % (Auto) Eos % (Auto) Baso % (Auto) Immature Gran # (Auto) Neut # (Auto) Lymph # (Auto) [place] # (Auto) Eos # (Auto) Baso # (Auto) PT INR APTT PTT Ratio Sodium Potassium Chloride Carbon Dioxide Anion Gap BUN Creatinine 0.64 Est Cr Clr Drug Dosing 159.1 Est GFR ( Amer) 139.8 Est GFR (Non-Af Amer) 120.6 BUN/Creatinine Ratio Glucose Lactate Calcium Total Bilirubin AST ALT Alkaline Phosphatase Total Protein Albumin Globulin Albumin/Globulin Ratio Vancomycin Trough 18.1
[2019-05-27] MEDS: FERROUS SULFATE 325 MG TAB PO SCH ×2 (08:57→20:47)
[2019-05-27] MEDS: PANTOprazole 40 MG TAB PO SCH (08:57)
[2019-05-27] MEDS: BROMOCRIPTINE MESYLATE 2.5 MG TAB PO SCH ×2 (08:57→20:48)
[2019-05-27] MEDS: FLUOXETINE HCL 20 MG CAP PO SCH ×2 (08:58→15:44)
[2019-05-27] MEDS ORDERED: VANCOMYCIN TROUGH ONE (09:30)
[2019-05-27] MEDS: VANCOMYCIN HCL 1,500 MG in SODIUM CHLORIDE 0.9% 500 ML IV SCH ×3 (09:58→20:45)
[2019-05-27 10:47] LABS: Hematocrit (blood only) 26.9 % (37-47); Hemoglobin 8.3 g/dL (12.0-16.0); Mean Corpuscular Hemoglobin 25.2 pg (25-34); Mean Corpuscular Hgb Conc 30.9 g/dL (32-36); Mean Corpuscular Volume 81.5 fL (80-100); Mean Platelet Volume 9.5 fL (7.4-10.4); Platelet Count 266 K/uL (130-400); RDW Coefficient of Variation 15.8 % (11.5-14.5); RDW Standard Deviation 45.9 fL (36.4-46.3); White Blood Count 9.11 K/uL (4.8-10.8)
[2019-05-27 10:49] LABS: Basophils # (auto) 0.02 K/uL (0-0.2); Basophils % (auto) 0.2 %; Eosinophils # (auto) 0.13 K/uL (0-0.5); Eosinophils % (auto) 1.4 %; Immature Granulocytes # (auto) 0.02 K/uL (0.00-0.02); Immature Granulocytes % (auto) 0.2 %; Lymphocytes % (auto) 12.1 %; Monocytes # (auto) 0.78 K/uL (0.11-0.59); Monocytes % (auto) 8.6 %; Neutrophils # (auto) 7.06 K/uL (1.4-6.5); Neutrophils % (auto) 77.5 %
[2019-05-27 10:53] LABS: RBC Morphology Unremarkable
[2019-05-27 10:59] LABS: Creatinine Clr Calc Pharmacy 154.3 ml/min; Est GFR (African American) 138.4; Est GFR (Non-African American) 119.4
[2019-05-27] MEDS ORDERED: MIDAZOLAM HCL 1 MG/ML 2ML VIAL ONE (13:14)
[2019-05-27] MEDS ORDERED: fentaNYL citrate 100 MCG/2 ML VIAL ONE (13:14)
--- NOTE | 2019-05-27 13:15 | Anesthesiology Consultation ---
Date of Service May 27, 2019 Assessment & Plan (1) Encounter for pre-operative examination: Chart Review Chart Review: Acceptable Risk for Surgery History Surgery Operation Date: 05/27/19 08:20 Proposed Procedures p Left Incision and Drainage Breast Abscess - Wood Flower MD, FACS Height/Weight Height: 5 ft 8 in Weight: 98.4 kg Allergies Allergy/AdvReac Type Severity Reaction Status Date / Time almotriptan AdvReac Severe TIGHTNESS Unverified 05/24/19 18:01 IN JAW, CAN'T BREATHE gabapentin AdvReac Severe TIGHTNESS Unverified 05/24/19 18:01 IN JAW, CAN'T BREATHE sumatriptan AdvReac Severe TIGHTNESS Unverified 05/24/19 18:01 IN JAW, CAN'T BREATHE topiramate AdvReac Severe TIGHTNESS Unverified 05/24/19 18:01 IN JAW, CANT BREATHE Medications Home Medications Medication Instructions Recorded Confirmed Last Taken Latuda 60 mg PO QPM 05/13/19 05/24/19 05/12/19 clonidine HCl 0.05 mg PO QPM 05/13/19 05/24/19 Unknown dextroamphetamine-amphetamine 30 mg PO BID 05/13/19 05/24/19 05/13/19 docusate sodium 100 mg PO BID PRN 05/13/19 05/24/19 05/13/19 ferrous sulfate 134 mg PO BID 05/13/19 05/24/19 Unknown fluoxetine 40 mg PO QAM 05/13/19 05/24/19 05/13/19 ibuprofen 600 mg PO Q6H 05/13/19 05/24/19 05/13/19 omeprazole 40 mg PO QAM 05/13/19 05/24/19 05/13/19 oxycodone 5 mg PO Q6H PRN 05/13/19 05/24/19 05/13/19 labetalol 100 mg PO BID #60 tab 05/14/19 05/24/19 Unknown alprazolam 1 mg PO DAILY PRN 05/24/19 05/24/19 Unknown dicloxacillin 500 mg PO QID 05/24/19 05/24/19 Unknown Active Medications Generic Name Dose Route Start Last Admin Trade Name Freq PRN Reason Stop Dose Admin Acetaminophen 650 mg 05/24/19 22:19 05/26/19 12:36 Tylenol PO 06/23/19 22:18 650 mg Q4H PRN Administration Pain or Fever Bromocriptine Mesylate 2.5 mg 05/25/19 00:45 05/27/19 08:57 Parlodel PO 06/24/19 00:44 Not Given BID CARL Clonidine HCl 0.05 mg 05/25/19 21:00 05/26/19 19:57 Catapres PO 06/24/19 20:59 0.05 mg QPM CARL Administration Docusate Sodium 100 mg 05/24/19 23:51 05/25/19 15:43 Colace PO 06/23/19 23:50 100 mg BID PRN Administration Constipation Ferrous Sulfate 325 mg 05/25/19 09:00 05/27/19 08:57 Feosol PO 06/24/19 08:59 Not Given BID CARL Fluoxetine HCl 40 mg 05/25/19 09:00 05/27/19 08:58 Prozac PO 06/24/19 08:59 Not Given QAM CARL Lactated Ringer's 1,000 mls @ 125 mls/hr 05/24/19 22:30 05/27/19 09:45 Lr IV 06/23/19 22:29 0 mls/hr .Q8H CARL Infusion Vancomycin HCl 1,500 mg/ 530 mls @ 200 mls/hr 05/26/19 04:00 05/27/19 11:17 Sodium Chloride IV 05/27/19 16:00 200 mls/hr Q10H CARL Administration Ibuprofen 600 mg 05/25/19 08:03 05/27/19 09:46 Motrin PO 06/24/19 08:02 600 mg Q6H PRN Administration Pain Lurasidone HCl 60 mg 05/25/19 21:00 05/26/19 19:57 Latuda PO 06/24/19 20:59 60 mg QPM CARL Administration Oxycodone/Acetaminophen 1 tab 05/26/19 10:07 05/27/19 12:20 Percocet 5mg/325mg PO 06/09/19 10:06 1 tab Q4H PRN Administration Pain Pantoprazole Sodium 40 mg 05/25/19 09:00 05/27/19 08:57 Protonix PO 06/24/19 08:59 Not Given QAM CARL Past Medical History Medical History hypertension (Acute) Pre-eclampsia, (Acute) Hemorrhoids (Acute) Anemia hemorrhage Past Family History Family History Other No pertinent family history in first degree relatives Past Surgical History Surgical History H/O dilation and curettage Social History Smoking Status: Current every day smoker tobacco type: cigarettes Do You Dip or Chew Tobacco: No Hx Alcohol Use: Yes Alcohol type: beer and wine alcohol intake frequency: a few times a month Hx Substance Use: No substance use type: does not use Physical Exam Vital Signs Last Vital Signs Temp 36.9 C 05/27/19 11:05 Pulse 60 05/27/19 12:04 Resp 18 05/27/19 12:04 BP 145/94 H 05/27/19 12:04 Pulse Ox 99 05/27/19 11:05 Testing Laboratory Results 05/27/19 09:54 05/27/19 09:54 PT 10.3 Seconds (9.0-12.0) 05/24/19 18:02 INR 1.0 (0.9-1.1) 05/24/19 18:02 APTT 26.2 Seconds (21.0-31.0) 05/24/19 18:02 05/24/19 18:02 Aerobic Blood Culture - Preliminary Blood No growth in Aerobic bottle after 48 hours. Anaerobic Blood Culture - Preliminary No growth in Anaerobic bottle after 48 hours. 05/24/19 18:21 Aerobic Blood Culture - Preliminary Blood No growth in Aerobic bottle after 48 hours. Anaerobic Blood Culture - Preliminary No growth in Anaerobic bottle after 48 hours. Electrocardiogram Date: 05/14/19 Findings: + SB @ (53)
[2019-05-27] MEDS ORDERED: BUPIVACAINE 0.5 % 5 MG/1 ML MPF 30ML VIAL ONE (13:22)
[2019-05-27] MEDS ORDERED: ONDANSETRON INJ 2 MG/ML 2 ML VIAL IV PRN ×2 (13:29→15:34)
[2019-05-27] MEDS ORDERED: HYDROmorphone INJ 1 MG/ML SYRINGE IV PRN (13:29)
[2019-05-27] MEDS ORDERED: ATROPINE SULFATE 0.1 MG/ML 10ML SYR IV PRN (13:29)
[2019-05-27] MEDS ORDERED: KETOROLAC 30 MG/ML VIAL IV PRN (13:29)
[2019-05-27] MEDS ORDERED: LABETALOL HCL IV 5 MG/ML 20ML IV PRN (13:29)
[2019-05-27] MEDS ORDERED: DEXAMETHASONE SOD INJ 4 MG/ML VIAL ONE (13:54)
[2019-05-27] MEDS ORDERED: ONDANSETRON INJ 2 MG/ML 2 ML VIAL ONE (13:54)
[2019-05-27] MEDS ORDERED: LIDOCAINE HCL 2% 2 ML VIAL/AMP(20MG/ML) INFIL ONE (13:54)
[2019-05-27] MEDS ORDERED: PROPOFOL IV EMULSION 10 MG/ML 20 ML VIAL IV ONE (13:54)
--- NOTE | 2019-05-27 14:07 | Operative Report ---
Post Operative Report Pre & Post Diagnosis Operation Date: 05/27/19 08:20 Pre-Op Diagnosis: MASTITIS LEFT BREAST Post-Op Diagnosis: MASTITIS LEFT BREAST large Lt breast abscess Procedure Operation Date: 05/27/19 08:20 Actual Procedures p Left Incision and Drainage Breast Abscess(Not Applicable) - Wood Flower MD, FACS Surgeon Wood Flower MD, FACS [employer] nurses Estimated Blood Loss 10 Findings Consistent with Post-Op Diagnosis Specimens fluid for culture Description of Procedure see dictation I attest to the content of the Intraoperative Record and any orders documented therein. Any exceptions are noted below.
[2019-05-27] MEDS ORDERED: ACETAMINOPHEN 1,000 MG/100 ML VIAL IV ONE (14:14)
[2019-05-27] MEDS ORDERED: HYDROmorphone INJ 2 MG/ML SYR/VIAL ONE (14:23)
--- NOTE | 2019-05-27 14:30 | Pharmacy Report ---
Pharmacy Abx Dose Short Note - Date of Service May 27, 2019 - Assessment & Plan Assessment 29 year old F receiving Vancomycin 1500 mg IV q10h for treatment of breast cellulitis. Day # 4 of antimicrobial therapy. Trough Vanc was ordered today after 3 doses received. Blood cultures are negative to date. Plan Vancomycin * Trough level of 12.7 mcg/mL is subtherapeutic. * Increased to Vancomycin 1500 mg IV every 8 hours starting today at 2000. * Goal trough level for SSTI: ~15 mcg/mL * Trough level ordered for: 05/29/19 before dose at 0400 Pharmacy will continue to follow and will adjust dose/frequency as necessary. Thank you.
--- NOTE | 2019-05-27 14:32 | Operative Report ---
DATE OF OPERATION: 05/27/2019 NAME OF OPERATION: Incision and drainage of left breast abscess. PREOPERATIVE DIAGNOSIS: Left breast abscess. POSTOPERATIVE DIAGNOSIS: Left breast abscess. STAFF SURGEON: Wood Flower MD ANESTHESIA: General. DESCRIPTION OF PROCEDURE: The patient was brought in the operating room and placed on the operating table in supine position. Her left breast was prepped and draped in usual fashion. She had a pin hole medially. It was probed and found to be at least 8 cm in length. Incision was made in this area using 0.5% plain Marcaine to anesthetize the surrounding tissue approximately 3 cm. I was able to then manipulate and digitally open an abscess which was approximately 8 cm in diameter. We cultured the fluid. It was irrigated and then a quarter-inch Eliane drain placed into the cavity and a single suture used to partially close the incision, although it was left open at least 2 cm. Dressing applied and the patient transferred to recovery room in stable condition. I attest to the content of the Intraoperative Record and any orders documented therein. Any exception s are noted below.
--- NOTE | 2019-05-27 14:55 | Infectious Disease Progress Nt ---
Date of Service May 27, 2019 Assessment & Plan (1) Left breast abscess: left breast abscess s/p I+D. Patient to continue on vancomycin pending OR cultures. Will follow. Subjective Patient seen in follow-up for left mastitis and breast cellulitis. Developed spontaneous drainage from breast last night, now s/p OR drainage of 8 cm abscess. Cultures taken and pending. Has been afebrile. Review of Systems Review of Systems: All systems reviewed & are unremarkable except as noted in HPI & below Physical Exam Constitutional: WD/WN, vitals as above comfortable; no acute distress Eyes: PERRL, conjunctivae normal, anicteric sclerae ENMT: external ear and nose normal, oropharynx normal Neck: trachea midline, no thyromegaly neck nontender Respiratory: normal respiratory effort, lungs clear to auscultation normal percussion; does not use accessory muscles Cardiovascular: Rate/Rhythm: regular rate and regular rhythm Heart Sounds: normal S1 and normal S2; no gallop, no murmur and no cardiac rub Vessels: normal peripheral pulses; no JVD Gastrointestinal (Abdomen): normal bowel sounds, soft, nontender, no hepatosplenomegaly Musculoskeletal: no cyanosis or clubbing, extremities motor strength 5/5 Spine: thoracic spine normal to inspection and lumbar spine normal to inspection; no cervical spinal tenderness Skin: normal turgor and + wound (Surgical dressing intact); no rashes Neurologic: patellar DTR's 2+ bilat, sensation intact no focal motor deficits Psychiatric: A+Ox3, euthymic affect Orientation: cooperative Lymphatic: no cervical or axillary lymphadenopathy no inguinal lymphadenopathy Results & Data Vital Signs (Past 12 Hours) Vital Signs Temp Pulse Resp BP Pulse Ox 05/27/19 14:45 36.7 C 67 16 133/89 100 05/27/19 14:35 36.7 C 68 15 149/96 H 100 05/27/19 14:25 36.7 C 69 16 122/104 H 100 05/27/19 14:16 36.7 C 76 16 135/84 100 05/27/19 13:30 36.9 C 77 18 157/85 H 97 05/27/19 12:04 60 18 145/94 H 05/27/19 11:05 36.9 C 74 18 152/93 H 99 05/27/19 07:42 36.9 C 77 20 133/87 97 05/27/19 03:45 37.1 C 85 16 118/78 98 Laboratory Results Short CBC 05/27/19 Range/Units 09:54 WBC 9.11 (4.8-10.8) K/uL Hgb 8.3 L (12.0-16.0) g/dL Hct 26.9 L (37-47) % Plt Count 266 (130-400) K/uL BMP 05/27/19 09:54 Creatinine 0.66 Diagnostic Findings Microbiology 05/24/19 18:02 Blood Aerobic Blood Culture - Preliminary No growth in Aerobic bottle after 48 hours. 05/24/19 18:02 Blood Anaerobic Blood Culture - Preliminary No growth in Anaerobic bottle after 48 hours. 05/24/19 18:21 Blood Aerobic Blood Culture - Preliminary No growth in Aerobic bottle after 48 hours. 05/24/19 18:21 Blood Anaerobic Blood Culture - Preliminary No growth in Anaerobic bottle after 48 hours. PG Care Time/CCT Total # of Minutes Spent Total Time Spent with Patient: Total time spent is greater than 50% in coordination of care (as documented) at patient's floor/unit and/or counseling patient:
--- NOTE | 2019-05-27 15:22 | Anesthesiology Progress Note ---
Date of Service May 27, 2019 Anesthesia Post Procedure Vital Signs Vital Signs: Temp Pulse Resp BP Pulse Ox 05/27/19 15:15 36.9 C 70 15 132/85 99 05/27/19 15:05 36.9 C 65 15 129/84 100 05/27/19 14:55 36.9 C 70 15 132/84 99 05/27/19 14:45 36.7 C 67 16 133/89 100 05/27/19 14:35 36.7 C 68 15 149/96 H 100 05/27/19 14:25 36.7 C 69 16 122/104 H 100 05/27/19 14:16 36.7 C 76 16 135/84 100 05/27/19 13:30 36.9 C 77 18 157/85 H 97 05/27/19 12:04 60 18 145/94 H 05/27/19 11:05 36.9 C 74 18 152/93 H 99 05/27/19 07:42 36.9 C 77 20 133/87 97 05/27/19 03:45 37.1 C 85 16 118/78 98 05/26/19 23:25 37.3 C 81 18 124/76 97 05/26/19 19:45 36.9 C 88 18 131/75 99 05/26/19 16:10 37.0 C 90 16 142/88 H 98 Pain Intensity Breast: Pain Intensity: 2 Head: Pain Intensity: 2 Transfer of Care Handoff Completed per policy Notes Mental Status: alert / awake / arousable Patient Amnestic to Procedure: Yes Nausea / Vomiting: adequately controlled Pain: adequately controlled Airway Patency, RR, SpO2: stable & adequate BP & HR: stable & adequate Hydration State: stable & adequate Anesthetic Complications: no major complications apparent
[2019-05-27] MEDS ORDERED: PROMETHAZINE HCL 25 MG in SODIUM CHLORIDE 0.9% 50 ML IV PRN (15:34)
[2019-05-27] MEDS ORDERED: PROMETHAZINE HCL 12.5 MG in SODIUM CHLORIDE 0.9% 50 ML IV PRN (15:34)
[2019-05-27] MEDS: SODIUM CHLORIDE 0.9% 1000ML 1,000 ML IV SCH (16:07)
[2019-05-27] MEDS: HYDROmorphone INJ 1 MG/ML SYRINGE IV PRN ×3 (16:09→23:01)
[2019-05-27] MEDS: LURASIDONE HCL 40 MG TAB PO SCH (18:30)
[2019-05-27] MEDS: DOCUSATE SODIUM 100 MG CAP PO PRN (20:44)
[2019-05-27] MEDS: cloNIDine HCl 0.1 MG TAB PO SCH (20:46)
[2019-05-28] MEDS: HYDROmorphone INJ 1 MG/ML SYRINGE IV PRN (02:51)
[2019-05-28] MEDS: VANCOMYCIN HCL 1,500 MG in SODIUM CHLORIDE 0.9% 500 ML IV SCH ×3 (04:28→20:00)
[2019-05-28] MEDS: OXYCODONE/ACETAMINOPHEN 5mg/325mg TAB PO PRN ×5 (04:32→20:21)
[2019-05-28 07:13] LABS: Creatinine Clr Calc Pharmacy 149.7 ml/min; Est GFR (Non-African American) 118.2
[2019-05-28] MEDS: BROMOCRIPTINE MESYLATE 2.5 MG TAB PO SCH ×2 (08:46→20:21)
[2019-05-28] MEDS: FERROUS SULFATE 325 MG TAB PO SCH ×2 (08:47→20:22)
[2019-05-28] MEDS: FLUOXETINE HCL 20 MG CAP PO SCH (08:47)
[2019-05-28] MEDS: PANTOprazole 40 MG TAB PO SCH (08:48)
[2019-05-28] MEDS ORDERED: NICOTINE 21 MG/24 HR TDSY TD SCH (09:00)
[2019-05-28] MEDS: LACTATED RINGER'S 1,000 ML IV SCH (09:15)
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
--- NOTE | 2019-05-28 10:32 | Surgery Progress Note ---
Date of Service May 28, 2019 Assessment & Plan (1) Left breast abscess: Status post incision and drainage of left breast abscess Eliane is in place Cultures remain pending Will keep patient until cultures are available to direct appropriate antibiotics Subjective Having less pain Denies nausea and vomiting Physical Exam Chest (Breasts): Additional Comments: Dressing is dry Less erythema as directed by the patient Very little tenderness Results & Data Vital Signs (Past 12 Hours) Vital Signs Temp Pulse Resp BP Pulse Ox Pulse Ox 05/28/19 07:45 36.7 C 64 16 148/88 H 98 05/28/19 04:30 37.1 C 70 16 137/81 96 05/27/19 23:30 37 C 69 18 142/87 H 97 97 Laboratory Results 05/28/19 05/27/19 05/27/19 Range/Units 06:27 09:54 09:54 WBC 9.11 (4.8-10.8) K/uL RBC 3.30 L (4.2-5.4) M/uL Hgb 8.3 L (12.0-16.0) g/dL Hct 26.9 L (37-47) % MCV 81.5 (80-100) fL MCH 25.2 (25-34) pg MCHC 30.9 L (32-36) g/dL RDW Std Deviation 45.9 (36.4-46.3) fL RDW Coeff of Dax 15.8 H (11.5-14.5) % Plt Count 266 (130-400) K/uL MPV 9.5 (7.4-10.4) fL Immature Gran % (Auto) 0.2 % Neut % (Auto) 77.5 % Lymph % (Auto) 12.1 % [place] % (Auto) 8.6 % Eos % (Auto) 1.4 % Baso % (Auto) 0.2 % Immature Gran # (Auto) 0.02 (0.00-0.02) K/uL Neut # (Auto) 7.06 H (1.4-6.5) K/uL Lymph # (Auto) 1.10 L (1.2-3.4) K/uL [place] # (Auto) 0.78 H (0.11-0.59) K/uL Eos # (Auto) 0.13 (0-0.5) K/uL Baso # (Auto) 0.02 (0-0.2) K/uL RBC Morphology Unremarkable Creatinine 0.68 (0.6-1.2) mg/dl Est Cr Clr Drug Dosing 149.7 ml/min Est GFR ( Amer) 137.0 Est GFR (Non-Af Amer) 118.2 Vancomycin Trough 12.7 (See Comment) mcg/ml 05/27/19 Range/Units 09:54 WBC (4.8-10.8) K/uL RBC (4.2-5.4) M/uL Hgb (12.0-16.0) g/dL Hct (37-47) % MCV (80-100) fL MCH (25-34) pg MCHC (32-36) g/dL RDW Std Deviation (36.4-46.3) fL RDW Coeff of Dax (11.5-14.5) % Plt Count (130-400) K/uL MPV (7.4-10.4) fL Immature Gran % (Auto) % Neut % (Auto) % Lymph % (Auto) % [place] % (Auto) % Eos % (Auto) % Baso % (Auto) % Immature Gran # (Auto) (0.00-0.02) K/uL Neut # (Auto) (1.4-6.5) K/uL Lymph # (Auto) (1.2-3.4) K/uL [place] # (Auto) (0.11-0.59) K/uL Eos # (Auto) (0-0.5) K/uL Baso # (Auto) (0-0.2) K/uL RBC Morphology Creatinine 0.66 (0.6-1.2) mg/dl Est Cr Clr Drug Dosing 154.3 ml/min Est GFR ( Amer) 138.4 Est GFR (Non-Af Amer) 119.4 Vancomycin Trough (See Comment) mcg/ml Diagnostic Findings Cultures are still pending
--- NOTE | 2019-05-28 11:34 | Obstetrical Progress Note ---
Date of Service May 28, 2019 Subjective Patient is seen and examined She feels much better Pain is much better No fever/ chills/ N&V Asking for d/c Per G. Surgery plan to await [facility] and sensitivity results for appropriate AB selection I called the lab and they said it will be back tomorrow am PE: Alert [id number] Holding her baby Left breast: much better than when I admitted her on 05/24 Dressing is removed, Burns drain is visible, incision, sutures intact Erythema and induration is much smaller Patient agreeable with stating All questions were answered Results & Data Vital Signs (Past 12 Hours) Vital Signs Temp Pulse Resp BP Pulse Ox Pulse Ox 05/28/19 07:45 36.7 C 64 16 148/88 H 98 05/28/19 04:30 37.1 C 70 16 137/81 96 05/27/19 23:30 37 C 69 18 142/87 H 97 97
[2019-05-28] MEDS: SODIUM CHLORIDE 0.9% 1000ML 1,000 ML IV SCH (11:43)
[2019-05-28] MEDS: IBUPROFEN 600 MG TAB PO PRN ×2 (14:22→20:20)
[2019-05-28] MEDS ORDERED: Nursing to Pharmacy Communication ONE (15:39)
[2019-05-28] MEDS: DOCUSATE SODIUM 100 MG CAP PO PRN (20:20)
[2019-05-28] MEDS: LURASIDONE HCL 40 MG TAB PO SCH (20:22)
[2019-05-28] MEDS: cloNIDine HCl 0.1 MG TAB PO SCH (20:23)
[2019-05-29] MEDS: IBUPROFEN 600 MG TAB PO PRN ×2 (03:28→08:29)
[2019-05-29] MEDS: OXYCODONE/ACETAMINOPHEN 5mg/325mg TAB PO PRN ×2 (03:29→08:30)
[2019-05-29] MEDS: VANCOMYCIN HCL 1,500 MG in SODIUM CHLORIDE 0.9% 500 ML IV SCH (03:30)
[2019-05-29] MEDS ORDERED: VANCOMYCIN TROUGH ONE (03:30)
[2019-05-29] MEDS: SODIUM CHLORIDE 0.9% 1000ML 1,000 ML IV SCH (03:32)
--- NOTE | 2019-05-29 08:12 | Surgery Progress Note ---
Date of Service May 29, 2019 Assessment & Plan (1) Left breast abscess: Status post I&D of left breast abscess Improving Can be discharged to home on Bactrim as cultures showed MRSA that is sensitive to sulfa. Can follow-up with Dr. Flower in the office for removal of the drain Present on Admission?: Yes Subjective Having very little pain No nausea or vomiting No fever Physical Exam Chest (Breasts): Additional Comments: Left breast is much softer. There is no erythema. There is minimal tenderness. Results & Data Vital Signs (Past 12 Hours) Vital Signs Temp Pulse Resp BP BP Pulse Ox 05/29/19 03:35 36.7 C 51 L 18 148/90 H 97 05/28/19 23:08 36.9 C 58 L 16 142/88 H 96
[2019-05-29] MEDS: FLUOXETINE HCL 20 MG CAP PO SCH (08:28)
[2019-05-29] MEDS: FERROUS SULFATE 325 MG TAB PO SCH (08:29)
[2019-05-29] MEDS: PANTOprazole 40 MG TAB PO SCH (08:29)
[2019-05-29] MEDS: BROMOCRIPTINE MESYLATE 2.5 MG TAB PO SCH (08:29)
[2019-05-29] MEDS ORDERED: SULFAMETHOXAZOLE/TRIMETHOPRIM DS 800/160MG TAB PO SCH (09:00)
[2019-05-29] MEDS ORDERED: NICOTINE 14 MG/24 HR PATCH TD SCH (09:00)
--- NOTE | 2019-06-03 00:58 | Discharge Summary ---
DETAILS OF ADMISSION: The patient is a 29-year-old G3, P3-0-0-3, who had spontaneous vaginal delivery on 05/07/2019 in [facility] in [place]. She presented to office on 05/24/2019 with left-sided breast pain and redness which did spread quickly. Due to diffuse redness and induration and tenderness, she was sent to Emergency Room to be admitted for I.V. antibiotics. She was seen by Emergency Room physician and started on I.V. antibiotics and I was called and I admitted her for her severe left breast mastitis with quick spread of redness and induration and kept her on I.V. antibiotics on 05/24/2019 night. She stopped about 2 weeks ago after a complicated delivery of preeclampsia as well as curettage due to hemorrhage. She received packed red blood cells for anemia as well and she was afebrile in the Emergency Room as well as hospital. She was started on vancomycin twice a day. Blood cultures were collected and I called General Surgery consult and she was seen by Dr. Flower next morning and there was no overt evidence of abscess. Ultrasound showed no abscess, but inflammation and then he called Infectious Disease for their recommendations for I.V. antibiotics and Dr. Renee recommended to continue with I.V. vancomycin pending blood and pending cultures. She was seen by Surgery next day and then planned for another ultrasound. She had repeat ultrasound which showed an abscess in the left breast and then she was taken to Operating Room on 05/27/2019 for incision and drainage by Dr. Flower. She was placed on Eliane drain and placed sutures. She was kept on I.V. vancomycin and then Infectious Disease had followed her and pending Operating Room cultures from the fluid and on 05/29/2019 culture results came as methicillin-resistant Staphylococcus aureus and sensitive to Bactrim. She was sent home on oral Bactrim and she is to be seen by Surgery as well as Obstetrics/Gynecology in the following week. All questions were answered. ECHO
== END 2019-05-29 10:05 | disposition home or self-care (01) | DRG 769 ==
LOC: ED 17:23 → 4N 17:23

== ENCOUNTER 2022-07-17 09:02 | Inpatient (IN) ==
[2022-07-17] MEDS ORDERED: ONDANSETRON INJ 2 MG/ML 2 ML VIAL IV STA (09:34)
[2022-07-17] MEDS ORDERED: MoRPHine SULFATE 4 MG/ML 1 ML CARP\\VIAL IV STA ×2 (09:34→10:53)
[2022-07-17] MEDS ORDERED: SODIUM CHLORIDE 0.9% 500 ML IV STA (09:34)
--- NOTE | 2022-07-17 09:37 | Emergency Department Note ---
Impression & Plan Abdominal pain, Partial small bowel obstruction ADMIT ED Provider Note HPI: The patient is a 32-year-old female who presents the emergency department with a chief complaint of right-sided abdominal pain and diarrhea that is been ongoing for the past 4 days. Patient states she has had diminished p.o. intake during this time. Patient states that her pain is mostly in the right upper quadrant and right side of the abdomen, she states she has had multiple episodes of vomiting each day. Patient states her pain is not improving and therefore she came to the ER today for further assessment. On arrival the patient is mildly tachycardic, otherwise with stable blood pressure and saturating well on room air, patient is afebrile on arrival. ROS: -GI: Abdominal pain, nausea and vomiting, diarrhea *10 point review systems was conducted and is otherwise negative unless stated above *Outpatient medications and allergy history reviewed PE: General: Alert HEENT: Normocephalic, trachea midline Eyes: Extraocular eye movement is intact, no scleral erythema Pulmonary: Clear to auscultation bilaterally, no wheezing Cardio: Regular rate and rhythm GI: Abdomen is soft, there is tenderness to the right side of the abdomen with palpation, there is no rigidity : No suprapubic tenderness MSK: No evidence of trauma or malformation of the extremities, no edema Skin: No evidence of rash Neuro: Alert, no focal deficits Psychiatric: Cooperative media monitor: - An order was placed for continuous cardiac monitoring - Patient was noted to be in sinus rhythm with a rate of 100 Interventions provided in ED: -IV morphine, IV Zofran, IV fluid bolus Medical Decision Making: Patient presented to the emergency department with abdominal pain, nausea and vomiting as well as nonbloody diarrhea that has been ongoing for the past 4 days. On arrival the patient appears to be in mild distress secondary to discomfort, IV was established, patient was placed on cardiac surgeon, lab work was obtained and patient was given IV fluids and pain medication as well as antiemetics. Lab work does not show any evidence of any critical findings, no leukocytosis, hemoglobin is stable, no acute kidney injury. CT imaging of the abdomen pelvis was obtained that shows multiple areas of inflammation consistent with possible enteritis versus possibility of Crohn's disease. There is evidence of partial small bowel obstruction. On my reassessment the patient's pain is improved but she still is having some symptoms. Stool PCR is ordered and patient has been unable to give a sample up to the time of admission. I feel that she is appropriate for admission. Case was discussed with the on-call midlevel provider for the [facility] service, Niki, and the patient was admitted in stable condition for further care. We will hold on NG tube as the patient has not exhibited any active vomiting here in the ED. Patient was in agreement to the above plan and she was admitted in improved condition. Diagnosis: 1. Right-sided abdominal pain, acute 2. Diarrhea 3. Partial bowel obstruction on CT imaging 4. Enteritis, acute, not otherwise specified Disposition: Admission Myron London DO Emergency Medicine Past Med/Surg History Medical History (Updated 07/17/22 @ 13:06 by Myron London DO) Anemia Hemorrhoids MRSA (methicillin resistant staph aureus) culture positive Left breast +MRSA 05/29/19 hemorrhage hypertension Pre-eclampsia, Surgical History H/O dilation and curettage Status post incision and drainage Left breast incision and drainage Family History Other No pertinent family history in first degree relatives Social History Smoking Status: Current every day smoker Tobacco Type: Cigarettes Second Hand Exposure: No; Hx Alcohol Use: Yes Alcohol type: beer and wine Hx Substance Use: No Preferred Language: Monegasque Communication Ability: Effective 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 Beliefs That Will Affect Care: None Current Living Situation: Family Feels Safe at Home: Yes Assistive Devices: None Allergies Allergies Allergy/AdvReac Type Severity Reaction Status Date / Time almotriptan AdvReac Severe TIGHTNESS Verified 07/17/22 12:19 IN JAW, CAN'T BREATHE gabapentin AdvReac Severe TIGHTNESS Verified 07/17/22 12:19 IN JAW, CAN'T BREATHE sumatriptan AdvReac Severe TIGHTNESS Verified 07/17/22 12:19 IN JAW, CAN'T BREATHE Home Meds Home Medications Medication Instructions Recorded Confirmed dextroamphetamine-amphetamine 30 30 mg PO QAM 05/13/19 07/17/22 mg tablet omeprazole 40 mg capsule,delayed 40 mg PO QAM 05/13/19 07/17/22 release alprazolam 1 mg tablet 1 mg PO HS PRN Anxiety 05/24/19 07/17/22 dextroamphetamine-amphetamine 10 10 mg PO .DAILY @ 1600 07/17/22 07/17/22 mg tablet dextroamphetamine-amphetamine 20 20 mg PO .DAILY @ 1200 07/17/22 07/17/22 mg tablet lamotrigine 150 mg tablet 150 mg PO HS 07/17/22 07/17/22 lurasidone 20 mg tablet (Latuda) 20 mg PO QPM 07/17/22 07/17/22 Results & Data (ED) Vital Signs Vital Signs - 24 hr 07/17/22 09:04 07/17/22 09:02 07/17/22 09:34 Temperature 36.3 C L Temperature Source Temporal Artery Scan Pulse Rate 116 H 92 H Pulse Rate [Apical] Pulse Rhythm Regular Pulse Rhythm [Apical] Respiratory Rate 20 16 16 Respiratory Effort / Characteristics Non-Labored Non-Labored Respiratory Depth Normal Normal Respiratory Pattern Regular Blood Pressure 120/87 Blood Pressure [Left Arm] Blood Pressure Mean 98 Blood Pressure Mean [Left Arm] Blood Pressure Position [Left Arm] Pulse Oximetry 98 98 Oxygen Delivery Method Room Air Sepsis Recent Fever Within 48 Hours No Sepsis New/Unexplained Change in Mental Status N/A Sepsis Action Taken by Nursing No Action Required 07/17/22 10:50 07/17/22 11:36 Temperature Temperature Source Pulse Rate Pulse Rate [Apical] 97 H 94 H Pulse Rhythm Pulse Rhythm [Apical] Regular Respiratory Rate 18 19 Respiratory Effort / Characteristics Non-Labored Respiratory Depth Normal Respiratory Pattern Regular Blood Pressure Blood Pressure [Left Arm] 119/81 124/72 Blood Pressure Mean Blood Pressure Mean [Left Arm] 93 89 Blood Pressure Position [Left Arm] Lying Pulse Oximetry 97 98 Oxygen Delivery Method Room Air Room Air Sepsis Recent Fever Within 48 Hours Sepsis New/Unexplained Change in Mental Status Sepsis Action Taken by Nursing Laboratory Data Result diagrams: 07/17/22 09:27 07/17/22 09:27 Lab Results 07/17/22 07/17/22 07/17/22 Range/Units 09:27 09:27 09:27 WBC 9.03 (4.8-10.8) K/ul RBC 4.88 (3.93-5.22) M/uL Hgb 13.1 (12.0-16.0) g/dl Hct 39.4 (34.1-44.9) % MCV 80.7 (80.0-100.0) fL MCH 26.8 (25.0-34.0) pg MCHC 33.2 (32.0-36.0) g/dL RDW Std Deviation 45.0 (36.4-46.3) fL RDW Coeff of Dax 15.2 H (11.5-14.5) % Plt Count 352 (130-400) K/uL MPV 9.9 (9.4-12.3) fL Immature Gran % (Auto) 0.2 % Neut % (Auto) 73.8 % Lymph % (Auto) 15.8 % Rice % (Auto) 8.3 % Eos % (Auto) 1.6 % Baso % (Auto) 0.3 % Neut # (Auto) 6.66 H (1.4-6.5) K/uL Lymph # (Auto) 1.43 (1.2-3.4) K/uL Rice # (Auto) 0.75 (0.24-0.82) K/uL Eos # (Auto) 0.14 (0-0.50) K/uL Baso # (Auto) 0.03 (0-0.2) K/uL Immature Gran # (Auto) 0.02 (0.00-0.02) K/uL Sodium 137 (136-145) mmol/L Potassium 3.4 L (3.5-5.1) mmol/L Chloride 99 (98-107) mmol/L Carbon Dioxide 28 (21-32) mmol/L Anion Gap 10 (3-11) BUN 14 (6-23) mg/dl Creatinine 0.89 (0.6-1.2) mg/dl Est Cr Clr Drug Dosing 107.0 ml/min Est GFR ( Amer) 99.4 ml/min Est GFR (Non-Af Amer) 85.8 ml/min BUN/Creatinine Ratio 15.7 (10-20) Glucose 91 (70-99(Fasting)) mg/dl Calcium 9.1 (8.5-10.1) mg/dl Total Bilirubin 0.5 (0.2-1.0) mg/dl AST 9 L (13-39) U/L ALT 7 (7-52) U/L Alkaline Phosphatase 74 (34-104) U/L Total Protein 7.3 (6.0-8.3) gm/dl Albumin 3.6 (3.4-5.0) gm/dl Globulin 3.7 (2.5-4.0) gm/dl Albumin/Globulin Ratio 1.0 (0.9-2) Lipase 20 (11-82) U/L HCG, Qual Negative (Negative) Urine Color Urine Appearance (Clear) Urine pH (4.5-7.5) Ur Specific [place] (1.000-1.030) Urine Protein (Negative) Urine Glucose (UA) (Negative) Urine Ketones (Negative) Urine Blood (Negative) Urine Nitrite (Negative) Urine Bilirubin (Negative) Urine Urobilinogen (Negative) Ur Leukocyte Esterase (Negative) Urine WBC (Auto) (0-5) /hpf Urine RBC (Auto) (0-4) /hpf U Hyaline Cast (Auto) (0-5) /lpf U Epithel Cells (Auto) (0-5) /lpf Urine Bacteria (Auto) (Negative) Granular Casts (0) /lpf SARS-CoV-2, RNA, NAAT (NEGATIVE) 07/17/22 07/17/22 Range/Units 12:04 12:09 WBC (4.8-10.8) K/ul RBC (3.93-5.22) M/uL Hgb (12.0-16.0) g/dl Hct (34.1-44.9) % MCV (80.0-100.0) fL MCH (25.0-34.0) pg MCHC (32.0-36.0) g/dL RDW Std Deviation (36.4-46.3) fL RDW Coeff of Dax (11.5-14.5) % Plt Count (130-400) K/uL MPV (9.4-12.3) fL Immature Gran % (Auto) % Neut % (Auto) % Lymph % (Auto) % Rice % (Auto) % Eos % (Auto) % Baso % (Auto) % Neut # (Auto) (1.4-6.5) K/uL Lymph # (Auto) (1.2-3.4) K/uL Rice # (Auto) (0.24-0.82) K/uL Eos # (Auto) (0-0.50) K/uL Baso # (Auto) (0-0.2) K/uL Immature Gran # (Auto) (0.00-0.02) K/uL Sodium (136-145) mmol/L Potassium (3.5-5.1) mmol/L Chloride (98-107) mmol/L Carbon Dioxide (21-32) mmol/L Anion Gap (3-11) BUN (6-23) mg/dl Creatinine (0.6-1.2) mg/dl Est Cr Clr Drug Dosing ml/min Est GFR ( Amer) ml/min Est GFR (Non-Af Amer) ml/min BUN/Creatinine Ratio (10-20) Glucose (70-99(Fasting)) mg/dl Calcium (8.5-10.1) mg/dl Total Bilirubin (0.2-1.0) mg/dl AST (13-39) U/L ALT (7-52) U/L Alkaline Phosphatase (34-104) U/L Total Protein (6.0-8.3) gm/dl Albumin (3.4-5.0) gm/dl Globulin (2.5-4.0) gm/dl Albumin/Globulin Ratio (0.9-2) Lipase (11-82) U/L HCG, Qual (Negative) Urine Color Yellow Urine Appearance Cloudy A (Clear) Urine pH 6.5 (4.5-7.5) Ur Specific [place] 1.017 (1.000-1.030) Urine Protein Negative (Negative) Urine Glucose (UA) Negative (Negative) Urine Ketones Negative (Negative) Urine Blood 3+ H (Negative) Urine Nitrite Negative (Negative) Urine Bilirubin Negative (Negative) Urine Urobilinogen Negative (Negative) Ur Leukocyte Esterase 3+ H (Negative) Urine WBC (Auto) >30 H (0-5) /hpf Urine RBC (Auto) 5-10 H (0-4) /hpf U Hyaline Cast (Auto) >30 H (0-5) /lpf U Epithel Cells (Auto) >30 H (0-5) /lpf Urine Bacteria (Auto) 1+ H (Negative) Granular Casts 5-10 H (0) /lpf SARS-CoV-2, RNA, NAAT NEGATIVE (NEGATIVE) Administered Medications Discontinued Medications Sodium Chloride (Nss) 500 mls @ 999 mls/hr IV .Q31M STA Stop: 07/17/22 10:04 Last Infusion: 07/17/22 10:15 Dose: 0 mls/hr Documented By: Admin: 07/17/22 09:44 Dose: 999 mls/hr Documented By: Sodium Chloride (Nss 1000ml) 1,000 mls @ 999 mls/hr IV .Q1H1M ONE Stop: 07/17/22 12:59 Last Admin: 07/17/22 12:08 Dose: 999 mls/hr Documented By: CLINTON Ioversol (Ioversol 350 Mg 100ml Prefilled Syringe) 94 ml IV ONCE ONE Stop: 07/17/22 11:29 Last Admin: 07/17/22 11:28 Dose: 94 ml Documented By: HEBER Morphine Sulfate (Morphine Sulfate 4 Mg/Ml 1 Ml Carp\Vial) 4 mg IV NOW STA Stop: 07/17/22 09:35 Last Admin: 07/17/22 09:43 Dose: 4 mg Documented By: Morphine Sulfate (Morphine Sulfate 4 Mg/Ml 1 Ml Carp\Vial) 4 mg IV NOW STA Stop: 07/17/22 10:54 Last Admin: 07/17/22 10:55 Dose: 4 mg Documented By: Ondansetron HCl (Ondansetron Inj 2 Mg/Ml 2 Ml Vial) 4 mg IV NOW STA Stop: 07/17/22 09:35 Last Admin: 07/17/22 09:43 Dose: 4 mg Documented By: Imaging Data Radiologist's Impression: Abdomen/Pelvis CT 07/17/22 09:34 CT OF THE ABDOMEN AND PELVIS WITH CONTRAST CLINICAL HISTORY: Right-sided abdominal pain. COMPARISON STUDY: CT of the abdomen and pelvis and right upper quadrant ultrasound September 23, 2019 TECHNIQUE: Following IV administration of 94 mL of Optiray, axial images of the abdomen and pelvis were obtained from the lung bases to the proximal femurs. Im ages were reviewed in the axial, sagittal, and coronal planes. IV contrast was administered without complication. Automated exposure control was utilized for the study. A dose lowering technique was utilized adhering to the principles of ALARA. CT DOSE: 532.34 mGy.cm FINDINGS: Lung bases are unremarkable. No pneumatosis, free air or portal venous gas is present. The liver, spleen, adrenal glands, kidneys and pancreas are unremarkable. There is no hydronephrosis. There is no biliary or pancreatic ductal dilatation. The appendix is normal. A small amount of abdominal ascites is noted. There is mesenteric stranding. Multifocal small bowel wall thickening is noted. This results in mild dilated fluid-filled small bowel loops which measure up to 3.3 cm in caliber. Small bowel feces sign is noted. No pneumatosis, free air or portal venous gas is present. There is no abscess. Major vasculature is patent. Terminal ileum is within normal limits by CT. Intrauterine device is in place. Ovaries are not enlarged. IMPRESSION: 1. Multifocal small bowel wall thickening with associated ascites and mesenteric stranding. The bowel wall thickening results in a partial small bowel obstruction with transition points, as described above. Although nonspecific, an infectious or inflammatory enteritis is favored. Crohn's disease is within t he differential. No abscess. No pneumatosis, free air or portal venous gas. Close clinical follow-up is recommended. Findings discussed with Dr. London at time of dictation. 2. Normal appendix. ACT 112: Negative or not required by law. Electronically signed by: Jose Emerson M.D. 07/17/2022 12:44 PM Discharge Plan Visit Data Chief Complaint: Abdominal Pain Stated Complaint: ABDOMINAL PAIN, VOMITING ED Provider: Myron London Discharge Problem: Abdominal pain, Partial small bowel obstruction Patient Disposition: Admitted As Inpatient Forms Stand Alone Forms: [facility] Prescriptions Prescriptions: No Action omeprazole 40 mg capsule,delayed release(DR/EC) 40 mg PO QAM Rx Instructions: TAKE THIS MEDICATION ONCE DAILY ONE HOUR BEFORE FIRST MEAL OF THE DAY dextroamphetamine-amphetamine 30 mg tablet 30 mg PO QAM alprazolam 1 mg tablet 1 mg PO HS PRN (Reason: Anxiety) lamotrigine 150 mg tablet 150 mg PO HS dextroamphetamine-amphetamine 10 mg tablet 10 mg PO .DAILY @ 1600 dextroamphetamine-amphetamine 20 mg tablet 20 mg PO .DAILY @ 1200 Latuda 20 mg tablet 20 mg PO QPM Referrals Referrals: Araseli Zaragoza, [Primary Care Provider] -
[2022-07-17 09:54] LABS: Basophils # (auto) 0.03 K/uL (0-0.2); Basophils % (auto) 0.3 %; Eosinophils # (auto) 0.14 K/uL (0-0.50); Eosinophils % (auto) 1.6 %; Hematocrit (blood only) 39.4 % (34.1-44.9); Hemoglobin 13.1 g/dl (12.0-16.0); Immature Granulocytes # (auto) 0.02 K/uL (0.00-0.02); Immature Granulocytes % (auto) 0.2 %; Lymphocytes # (auto) 1.43 K/uL (1.2-3.4); Lymphocytes % (auto) 15.8 %; Mean Corpuscular Hemoglobin 26.8 pg (25.0-34.0); Mean Corpuscular Hgb Conc 33.2 g/dL (32.0-36.0); Mean Corpuscular Volume 80.7 fL (80.0-100.0); Mean Platelet Volume 9.9 fL (9.4-12.3); Monocytes # (auto) 0.75 K/uL (0.24-0.82); Monocytes % (auto) 8.3 %; Neutrophils # (auto) 6.66 K/uL (1.4-6.5); Neutrophils % (auto) 73.8 %; Platelet Count 352 K/uL (130-400); RDW Coefficient of Variation 15.2 % (11.5-14.5); Red Blood Count 4.88 M/uL (3.93-5.22); White Blood Count 9.03 K/ul (4.8-10.8)
[2022-07-17 10:17] LABS: Albumin Level 3.6 gm/dl (3.4-5.0); BUN Creatinine Ratio 15.7 (10-20); Bilirubin,Total 0.5 mg/dl (0.2-1.0); Calcium 9.1 mg/dl (8.5-10.1); Est GFR (African American) 99.4 ml/min; Est GFR (Non-African American) 85.8 ml/min; Globulin 3.7 gm/dl (2.5-4.0); Potassium 3.4 mmol/L (3.5-5.1); Total Protein 7.3 gm/dl (6.0-8.3)
[2022-07-17 10:25] LABS: Pregnancy Test, Serum Negative (Negative)
[2022-07-17] MEDS ORDERED: IOVERSOL 350 MG 100mL Prefilled Syringe IV ONE (11:28)
[2022-07-17] MEDS ORDERED: SODIUM CHLORIDE 0.9% 1000ML 1,000 ML IV ONE (11:59)
[2022-07-17 12:33] LABS: Appearance Urine Cloudy (Clear); Bilirubin Urine Negative (Negative); Blood Urine 3+ (Negative); Color Urine Yellow; Glucose Urine UA Negative (Negative); Ketones Urine Negative (Negative); Leukocyte Esterase Urine 3+ (Negative); Nitrite Urine Negative (Negative); Protein Urine Negative (Negative); Specific Gravity Urine 1.017 (1.000-1.030); Urobilinogen Urine Negative (Negative); pH Urine 6.5 (4.5-7.5)
--- NOTE | 2022-07-17 12:45 | CT Scan Report ---
CT OF THE ABDOMEN AND PELVIS WITH CONTRAST CLINICAL HISTORY: Right-sided abdominal pain. COMPARISON STUDY: CT of the abdomen and pelvis and right upper quadrant ultrasound September 23, 2019 TECHNIQUE: Following IV administration of 94 mL of Optiray, axial images of the abdomen and pelvis we re obtained from the lung bases to the proximal femurs. Images were reviewed in the axial, sagittal, and coronal planes. IV contrast was administered without complication. Automated exposure control wa s utilized for the study. A dose lowering technique was utilized adhering to the principles of ALARA . CT DOSE: 532.34 mGy.cm FINDINGS: Lung bases are unremarkable. No pneumatosis, free air or portal venous gas is present. The liver, spleen, adrenal glands, kidneys and pancreas are unremarkable. There is no hydronephrosis. The re is no biliary or pancreatic ductal dilatation. The appendix is normal. A small amount of abdominal ascites is noted. There is mesenteric stranding. Multifocal small bowel wall thickening is noted. Th is results in mild dilated fluid-filled small bowel loops which measure up to 3.3 cm in caliber. Smal l bowel feces sign is noted. No pneumatosis, free air or portal venous gas is present. There is no ab scess. Major vasculature is patent. Terminal ileum is within normal limits by CT. Intrauterine device is in place. Ovaries are not enlarged. IMPRESSION: 1. Multifocal small bowel wall thickening with associated ascites and mesenteric stranding. The bowel wall thickening results in a partial small bowel obstruction with transition points, as described ab ove. Although nonspecific, an infectious or inflammatory enteritis is favored. Crohn's disease is wi thin the differential. No abscess. No pneumatosis, free air or portal venous gas. Close clinical foll ow-up is recommended. Findings discussed with Dr. London at time of dictation. 2. Normal appendix. ACT 112: Negative or not required by law. Electronically signed by: Jose Emerson M.D. 07/17/2022 12:44 PM
[2022-07-17 13:01] LABS: Bacteria Urine Automated 1+ (Negative); Cast Urine Automated >30 /lpf (0-5); Epithelial Cell Urine Auto >30 /lpf (0-5); WBC Urine Automated >30 /hpf (0-5)
--- NOTE | 2022-07-17 13:04 | History & Physical Report ---
Date of Service July 17, 2022 Assessment & Plan (1) Abdominal pain: (2) Partial small bowel obstruction: (3) UTI (urinary tract infection): (4) ADHD: Plan 32 y/o female right sided abdominal pain x 4 days. + nausea, vomiting, and liquid diarrhea without hematochezia. +fevers and chills at home; afebrile here. ESR and CRP pending. Abdominal CT: Multifocal small bowel wall thickening with associated ascites and mesenteric stranding, suggestive of partial small bowel obstruction. Possible infectious or inflammatory enteritis is favored. Crohn's disease is within the differential. No abscess. No pneumatosis, free air or portal venous gas. + tender without signs of peritonitis on exam. No leukocytosis. Negative screen/hcg. Empirically treating for a UTI. She reports that the last time she ate solid food was yesterday. stool culture pending. Morphine for pain control. NPO. GI Consult. Abdominal pain Partial SBO: Nausea and vomiting: -Abd pain x 4 days -Abdominal CT results: Multifocal small bowel wall thickening with associated ascites and mesenteric stranding. Suggestive of partial SBO. Infectious or inflammatory enteritis; await stool culture results and start abx accordingly No abscess. No pneumatosis, free air or portal venous gas. -No leukocytosis; will trend -ESR/CRP pending -Lipase negative -Folate, B12, Fe+, Vit D levels pending -Zofran PRN, hypok+ 3.4; replace with 1 rider and trend -NPO for bowel rest; SCD's. -GI Consult placed for evaluation -Gen Surgery consult placed for eval of SBO -Morphine for pain control UTI: -3+ Leukocyte Esterase on UA -Empirically treat based on EKG QTc results; reeval in AM -Hcg neg. LMP started 07/15 ADHD: Continue Adderall 10 mg Q AM 10 mg Q PM Continue Latuda GERD: Continue Omeprazole Disposition: PCP: Dr. Zaragoza VTE Prophlyaxis:SCDs for now; holding any meds for anticoagulation pending surgery eval. Pt is ambulatory. Code: Full code History of Present Illness Chief Complaint: abdominal pain Primary Care Provider: Araseli Zaragoza DO Ms. Ramos is a 32 y/o female that presented with her mother Terrie as she was experiencing right sided abdominal pain that has been occurring for the past 4 days. She was experiencing nausea, vomiting, and liquid diarrhea without hematochezia. She reports having fevers and chills at home; but is afebrile here. She has a PMH that includes: GERD, bipolar disorder, ADHD, and anxiety. On initial labs, her LFTs are ok; Bili 0.5. ESR and CRP pending. An abdominal CT was obtained and results indicate: Multifocal small bowel wall thickening with associated ascites and mesenteric stranding. The bowel wall thickening results in a partial small bowel obstruction with transition points, as described above. Although nonspecific, an infectious or inflammatory enteritis is favored. Crohn's disease is within the differential. No abscess. No pneumatosis, free air or portal venous gas. She is tender without signs of peritonitis on exam. No leukocytosis. Negative screen/hcg. Empirically treating for a UTI. She reports that the last time she ate solid food was yesterday. A stool culture has been obtained and sent. Currently, Morphine is controlling her pain well. GI Consult placed. Patient will be admitted for further evaluation and management. Please see A/P for further details. Allergies Allergy/AdvReac Type Severity Reaction Status Date / Time almotriptan AdvReac Severe TIGHTNESS Verified 07/17/22 12:19 IN JAW, CAN'T BREATHE gabapentin AdvReac Severe TIGHTNESS Verified 07/17/22 12:19 IN JAW, CAN'T BREATHE sumatriptan AdvReac Severe TIGHTNESS Verified 07/17/22 12:19 IN JAW, CAN'T BREATHE Home Medications Medication Instructions Recorded Confirmed Type dextroamphetamine-amphetamine 30 30 mg PO QAM 05/13/19 07/17/22 History mg tablet omeprazole 40 mg capsule,delayed 40 mg PO QAM 05/13/19 07/17/22 History release alprazolam 1 mg tablet 1 mg PO HS PRN Anxiety 05/24/19 07/17/22 History dextroamphetamine-amphetamine 10 10 mg PO .DAILY @ 1600 07/17/22 07/17/22 History mg tablet dextroamphetamine-amphetamine 20 20 mg PO .DAILY @ 1200 07/17/22 07/17/22 History mg tablet lamotrigine 150 mg tablet 150 mg PO HS 07/17/22 07/17/22 History lurasidone 20 mg tablet (Latuda) 20 mg PO QPM 07/17/22 07/17/22 History Past Med/Surg History Medical History ADHD Anemia Bipolar 1 disorder Hemorrhoids MRSA (methicillin resistant staph aureus) culture positive Left breast +MRSA 05/29/19 hemorrhage hypertension Pre-eclampsia, UTI (urinary tract infection) Surgical History H/O dilation and curettage Status post incision and drainage Left breast incision and drainage Family History Other No pertinent family history in first degree relatives Social History Smoking Status: Current every day smoker Tobacco Type: Cigarettes Second Hand Exposure: No; Hx Alcohol Use: Yes Alcohol type: beer and wine Hx Substance Use: No Preferred Language: Monegasque Communication Ability: Effective Cable Engineer Required: No Beliefs That Will Affect Care: None Current Living Situation: Family Feels Safe at Home: Yes Assistive Devices: None Review of Systems Review of Systems: Neuro: (-) Falls, trauma, slurred speech HEENT: (-) DIOP, dizziness, dysphagia, visual or auditory changes CV: (-) CP, palpitations, swelling Resp: (-) SOB GI: (-) appetite changes, (+) N/V/D, (+) bowel changes : (-) urinary changes Skin: (-) rashes Psych: (-) anxiety, depression Physical Exam Physical Exam: Neuro: AAOx4, groggy from pain meds PERRLA, no aphagia, memory changes, CNII-XII grossly intact HEENT: head normocephalic, moist mucus membranes CV: S1/S2, (-) M/G/R, (-) edema, cap refill < 3 seconds Resp: Lungs CTA in all mckeon. On RA GI: Abdomen tender, Ax4 bowel sounds, (-) CVA tenderness Musculoskeletal: 5/5 B/L UE strength, 5/5 B/L LE strength. No gait disturbance Skin: (-) rashes , (-) erythema. Psych: euthymic mood Results & Data Results & Data ([facility]) Vital Signs (Past 12 Hours) Vital Signs Temp Pulse Pulse Resp BP BP Pulse Ox 07/17/22 11:36 94 H 19 124/72 98 07/17/22 10:50 97 H 18 119/81 97 07/17/22 09:34 92 H 16 98 07/17/22 09:02 16 07/17/22 09:04 36.3 C L 116 H 20 120/87 98 O2 Del Method 07/17/22 11:36 Room Air 07/17/22 10:50 Room Air 07/17/22 09:34 Room Air 07/17/22 09:02 07/17/22 09:04 Laboratory Results Short CBC 07/17/22 Range/Units 09:27 WBC 9.03 (4.8-10.8) K/ul Hgb 13.1 (12.0-16.0) g/dl Hct 39.4 (34.1-44.9) % Plt Count 352 (130-400) K/uL BMP 07/17/22 09:27 Sodium 137 Potassium 3.4 L Chloride 99 Carbon Dioxide 28 BUN 14 Creatinine 0.89 Glucose 91 Calcium 9.1 Liver Function 07/17/22 Range/Units 09:27 Total Bilirubin 0.5 (0.2-1.0) mg/dl AST 9 L (13-39) U/L ALT 7 (7-52) U/L Alkaline Phosphatase 74 (34-104) U/L Albumin 3.6 (3.4-5.0) gm/dl Urine 07/17/22 Range/Units 12:04 Urine Color Yellow Urine Appearance Cloudy A (Clear) Urine pH 6.5 (4.5-7.5) Ur Specific Warner 1.017 (1.000-1.030) Urine Protein Negative (Negative) Urine Glucose (UA) Negative (Negative) Diagnostic Findings Abdomen/Pelvis CT 07/17/22 09:34 CT OF THE ABDOMEN AND PELVIS WITH CONTRAST CLINICAL HISTORY: Right-sided abdominal pain. COMPARISON STUDY: CT of the abdomen and pelvis and right upper quadrant ultrasound September 23, 2019 TECHNIQUE: Following IV administration of 94 mL of Optiray, axial images of the abdomen and pelvis were obtained from the lung bases to the proximal femurs. Images were reviewed in the axial, sagittal, and coronal planes. IV contrast was administered without complication. Automated exposure control was utilized for the study. A dose lowering technique was utilized adhering to the principles of ALARA. CT DOSE: 532.34 mGy.cm FINDINGS: Lung bases are unremarkable. No pneumatosis, free air or portal venous gas is present. The liver, spleen, adrenal glands, kidneys and pancreas are unremarkable. There is no hydronephrosis. There is no biliary or pancreatic ductal dilatation. The appendix is normal. A small amount of abdominal ascites is noted. There is mesenteric stranding. Multifocal small bowel wall thickening is noted. This results in mild dilated fluid-filled small bowel loops which measure up to 3.3 cm in caliber. Small bowel feces sign is noted. No pneumatosis, free air or portal venous gas is present. There is no abscess. Major vasculature is patent. Terminal ileum is within normal limits by CT. Intrauterine device is in place. Ovaries are not enlarged. IMPRESSION: 1. Multifocal small bowel wall thickening with associated ascites and mesenteric stranding. The bowel wall thickening results in a partial small bowel obstruction with transition points, as described above. Although nonspecific, an infectious or inflammatory enteritis is favored. Crohn's disease is within the differential. No abscess. No pneumatosis, free air or portal venous gas. Close clinical follow-up is recommended. Findings discussed with Dr. London at time of dictation. 2. Normal appendix. ACT 112: Negative or not required by law. Electronically signed by: Jose Emerson M.D. 07/17/2022 12:44 PM ECG Additional Comments: QtC 450 Code Status & VTE Plan Code Status Full Code VTE Prophylaxis Plan VTE Prophylaxis will be ordered: Yes Supervising Physician Co-Signing Physician Notes Pt seen and examined by ca , care coordinated w/ Niki Holloway PA-C Pt is a 32 y/o F who presents with right sided abdominal pain x 4 days, nausea, vomiting, and liquid diarrhea without hematochezia. An abdominal CT was obtained and results indicate: Multifocal small bowel wall thickening with associated ascites and mesenteric stranding. The bowel wall thickening results in a partial small bowel obstruction with transition points, as described above. Although nonspecific, an infectious or inflammatory enteritis is favored. Crohn's disease is within the differential. Patient is currently lying in bed, received IV morphine in the ED, but still complaining of abdominal pain. Bowel sounds are sluggish. However abdomen is soft to palpation. Patient is able to answer which is appropriately. Patient's mother is at the bedside and provides also the history. Lung sounds clear to auscultation bilaterally. Heart sounds regular. No lower extremity edema. Skin is warm and dry. Stool studies ordered and pending. UA also concerning for UTI. Ceftriaxone given. GI consulted. IV fluids, electrolyte replacement, especially potassium and magnesium. Continue to closely monitor. MD Lorie
[2022-07-17] MEDS ORDERED: cefTRIAXone SODIUM 1,000 MG/50 ML BAG IV STA (13:20)
[2022-07-17] MEDS ORDERED: ACETAMINOPHEN 1,000 MG/100 ML VIAL IV STA (14:00)
--- NOTE | 2022-07-17 14:31 | Gastrointestinal Consultation ---
Date of Consultation July 17, 2022 Assessment & Plan (1) Partial small bowel obstruction: (2) Abdominal pain: (3) Abnormal finding on GI tract imaging: Infectious enteritis vs new IBD Plan IV fluids, antiemetics, analgesics. Consult surgery. Diet per surgery but no GI contraindication to clear liquids at this time. Stool studies. Hold on antibiotics and steroids until stool results are back. Eventual EGD/Colonoscopy to r/o Crohn's. Supervising Physician Co-Signing Physician Notes I performed a history and physical examination of the patient today, including specifically on physical exam - soft abdomen. I have discussed the patient's management with the advanced practitioner. Please refer to the nurse practitioner's note for the documented findings and plan of care. Infectious Vs IBD. Stool work up. History of Present Illness Reason for Consultation: abdominal pain/enteritis/partial SBO Requesting Physician: Araceli Holloway NP [facility] of Present Illness Ms. Christine Ramos is a 32 yr old female pt of Dr. Zaragoza w a hx of Gerd and anxietypresented to the ED today for N/V/diarrhea. CT was suggestive of an SBO. She reports nausea, vomiting about 3 times/day, most recently yesterday, also diarrhea, about 4-5 x/day and earlier in the ED passed a bloody/mucous in BM. She has felt hot/chills but didn't take her temp. She denies exposure to suspect foods and no sick contacts. Her most significant symptoms is diffuse, severe abd pain, worse on the right side. She is writhing in pain, asking for pain medication. Her mother is at the bedside. She states that she doesn't want to answer questions and her mother provided some of the hx for her. No fam hx of IBD. The pt denies any hx of previous similar symptoms. On arrival, afebrile, w/o leukocytosis. CT, however, suggests an SBO. Passing BMs suggests that there is a partial obstruction. Allergies Allergy/AdvReac Type Severity Reaction Status Date / Time almotriptan AdvReac Severe TIGHTNESS Verified 07/17/22 12:19 IN JAW, CAN'T BREATHE gabapentin AdvReac Severe TIGHTNESS Verified 07/17/22 12:19 IN JAW, CAN'T BREATHE sumatriptan AdvReac Severe TIGHTNESS Verified 07/17/22 12:19 IN JAW, CAN'T BREATHE Home Medications Medication Instructions Recorded Confirmed Type dextroamphetamine-amphetamine 30 30 mg PO QAM 05/13/19 07/17/22 History mg tablet omeprazole 40 mg capsule,delayed 40 mg PO QAM 05/13/19 07/17/22 History release alprazolam 1 mg tablet 1 mg PO HS PRN Anxiety 05/24/19 07/17/22 History dextroamphetamine-amphetamine 10 10 mg PO .DAILY @ 1600 07/17/22 07/17/22 History mg tablet dextroamphetamine-amphetamine 20 20 mg PO .DAILY @ 1200 07/17/22 07/17/22 History mg tablet lamotrigine 150 mg tablet 150 mg PO HS 07/17/22 07/17/22 History lurasidone 20 mg tablet (Latuda) 20 mg PO QPM 07/17/22 07/17/22 History Patient History Medical History ADHD Anemia Bipolar 1 disorder Hemorrhoids MRSA (methicillin resistant staph aureus) culture positive Left breast +MRSA 05/29/19 hemorrhage hypertension Pre-eclampsia, UTI (urinary tract infection) Surgical History H/O dilation and curettage Status post incision and drainage Left breast incision and drainage Family History Other No pertinent family history in first degree relatives Social History Smoking Status: Current every day smoker Tobacco Type: Cigarettes Second Hand Exposure: No; Hx Alcohol Use: No Hx Substance Use: No Preferred Language: Turkish Communication Ability: Effective Investigative Reporter Required: No Beliefs That Will Affect Care: None Current Living Situation: Alone Feels Safe at Home: Yes Assistive Devices: None Review of Systems Review of Systems: ROS: Gen: +hot/chills + weight loss Eyes: No eye redness, or pain, no recent vision changes Nose/throat: denies sore throat or nasal congestion Resp: No SOB, no cough Cardio: No palpitations/irregular beats, no chest pain GI: As per HPI, otherwise (-) : Denies pain on urination Skin: + had a red, dry, itchy, bumpy rash on the face at the onset of this illness; no rash elsewhere. No jaundice A total of 12 systems were reviewed,all others (-) Physical Exam Constitutional: WD/WN, vitals as above Eyes: PERRL, conjunctivae normal, anicteric sclerae ENMT: external ear and nose normal, oropharynx normal Neck: trachea midline, no thyromegaly Respiratory: normal respiratory effort, lungs clear to auscultation Cardiovascular: RRR, no murmur, no edema Gastrointestinal (Abdomen): Inspection/Auscultation: + abdomen distended (mildly) and normal bowel sounds Percussion/Palpation: + abdomen tender (diffusely tender RUQ, RLQ more than left side) not taunt Skin: no rashes, warm and dry Neurologic: PERRL, EOMI, accommodation nl, no face palsy, no dysarthria Psychiatric: A+Ox3, euthymic affect Lymphatic: no cervical or axillary lymphadenopathy Results & Data ([facility]) Vital Signs (Past 12 Hours) Vital Signs Temp Pulse Pulse Resp BP BP Pulse Ox 07/17/22 13:19 88 14 109/60 98 07/17/22 11:36 94 H 19 124/72 98 07/17/22 10:50 97 H 18 119/81 97 07/17/22 09:34 92 H 16 98 07/17/22 09:02 16 07/17/22 09:04 36.3 C L 116 H 20 120/87 98 O2 Del Method 07/17/22 13:19 Room Air 07/17/22 11:36 Room Air 07/17/22 10:50 Room Air 07/17/22 09:34 Room Air 07/17/22 09:02 07/17/22 09:04 Laboratory Results WBC 9.0, Hb 13, hct 39, [id number], Na 137, K 3.4, Cl 99, CO2 28, BUN 14, Cr 0.87, glucose 91. T Bili 0.5, AST 9, ALT 7, Alk Phos 74 Diagnostic Findings CTAP w IV contrast 07.17.22 (today): 1. Multifocal small bowel wall thickening with associated ascites and mesenteric stranding. The bowel wall thickening results in a partial small bowel obstru ction with transition points, as described above. Although nonspecific, an infectious or inflammatory enteritis is favored. Crohn's disease is within the differential. No abscess. No pneumatosis, free air or portal venous gas. Close clinical follow-up is recommended. Findings discussed with Dr. London at time of dictation. 2. Normal appendix
[2022-07-17 14:32] LABS: Folate (Folic Acid) 6.08 ng/ml (>5.38)
[2022-07-17] MEDS: MoRPHine SULFATE 4 MG/ML 1 ML CARP\\VIAL IV PRN ×3 (14:56→22:51)
[2022-07-17] MEDS: POTASSIUM CHLORIDE / WTR 10 MEQ/100 ML PLCT IV SCH ×2 (15:02→16:03)
--- NOTE | 2022-07-17 15:36 | Surgery Consultation ---
Date of Consultation July 17, 2022 Assessment & Plan (1) Enteritis: Nonsurgical abdomen. Supportive care, can have clears. Further eval/endoscopy per GI. Supervising Physician Co-Signing Physician Notes Pnt S&E, labs and imaging reviewed, agree wtih above. 4 days of n/v/d and abd pain. afvss, abd soft, mildly tender, no guarding. wbc normal, stool cx's pending. CT personally reviewed and shows enteritis, no sbo. no surgery indicated, may have clears, adv to low fiber as tolerated from surgery standpoint. Abx/steroids per GI. surgery will follow peripherally, call w/ questions or concerns. History of Present Illness History of Present Illness 32 y/o female with 4 days abdominal pain, N/V, diarrhea. Has not been eating much past few days but now hungry. No others around her have similar symptoms. No family history IBD. Allergies Allergy/AdvReac Type Severity Reaction Status Date / Time almotriptan AdvReac Severe TIGHTNESS Verified 07/17/22 12:19 IN JAW, CAN'T BREATHE gabapentin AdvReac Severe TIGHTNESS Verified 07/17/22 12:19 IN JAW, CAN'T BREATHE sumatriptan AdvReac Severe TIGHTNESS Verified 07/17/22 12:19 IN JAW, CAN'T BREATHE Home Medications Medication Instructions Recorded Confirmed Type dextroamphetamine-amphetamine 30 30 mg PO QAM 05/13/19 07/17/22 History mg tablet omeprazole 40 mg capsule,delayed 40 mg PO QAM 05/13/19 07/17/22 History release alprazolam 1 mg tablet 1 mg PO HS PRN Anxiety 05/24/19 07/17/22 History dextroamphetamine-amphetamine 10 10 mg PO .DAILY @ 1600 07/17/22 07/17/22 History mg tablet dextroamphetamine-amphetamine 20 20 mg PO .DAILY @ 1200 07/17/22 07/17/22 History mg tablet lamotrigine 150 mg tablet 150 mg PO HS 07/17/22 07/17/22 History lurasidone 20 mg tablet (Latuda) 20 mg PO QPM 07/17/22 07/17/22 History Patient History Medical History ADHD Anemia Bipolar 1 disorder Hemorrhoids MRSA (methicillin resistant staph aureus) culture positive Left breast +MRSA 05/29/19 hemorrhage hypertension Pre-eclampsia, UTI (urinary tract infection) Surgical History H/O dilation and curettage Status post incision and drainage Left breast incision and drainage Family History Other No pertinent family history in first degree relatives Social History Smoking Status: Current every day smoker Tobacco Type: Cigarettes Second Hand Exposure: No; Hx Alcohol Use: Yes Alcohol type: beer and wine Hx Substance Use: No Preferred Language: Ugandan Communication Ability: Effective Art Historian Required: No Beliefs That Will Affect Care: None Current Living Situation: Family Feels Safe at Home: Yes Assistive Devices: None Review of Systems Constitutional: + fever and + anorexia Gastrointestinal: + abdominal pain, + nausea, + vomiting, + diarrhea/loose stools and + blood in stools Physical Exam Constitutional: + lethargic Respiratory: normal respiratory effort Cardiovascular: Rate/Rhythm: regular rate Gastrointestinal (Abdomen): Inspection/Auscultation: abdomen not distended Percussion/Palpation: + abdomen tender (mild generalized) and abdomen soft; no guarding Skin: no rashes, warm and dry Results & Data ([facility]) Vital Signs (Past 12 Hours) Vital Signs Temp Pulse Pulse Resp BP BP Pulse Ox 07/17/22 15:02 82 14 114/57 L 96 07/17/22 13:19 88 14 109/60 98 07/17/22 11:36 94 H 19 124/72 98 07/17/22 10:50 97 H 18 119/81 97 07/17/22 09:34 92 H 16 98 07/17/22 09:02 16 07/17/22 09:04 36.3 C L 116 H 20 120/87 98 O2 Del Method 07/17/22 15:02 Room Air 07/17/22 13:19 Room Air 07/17/22 11:36 Room Air 07/17/22 10:50 Room Air 07/17/22 09:34 Room Air 07/17/22 09:02 07/17/22 09:04 PG Care Time/CCT Total # of Minutes Spent Total Time Spent with Patient: Total time spent is greater than 50% in coordination of care (as documented) at patient's floor/unit and/or counseling patient: Coding Level of Care Code 54930 Inpt Consult Level 3 Diagnoses Enteritis K52.9
[2022-07-17 17:05] LABS: BUN Creatinine Ratio 14.1 (10-20); Calcium 8.1 mg/dl (8.5-10.1); Est GFR (African American) 116.6 ml/min; Est GFR (Non-African American) 100.6 ml/min; Potassium 3.6 mmol/L (3.5-5.1)
[2022-07-17 17:20] LABS: Adenovirus F 40/41 PCR Not Detected (NotDetected); Astrovirus PCR Not Detected (NotDetected); Campylobacter PCR Not Detected (NotDetected); Clostridium diff Toxin A/B PCR Not Detected (NotDetected); Cryptosporidium PCR Not Detected (NotDetected); Cyclospora cayetanensis PCR Not Detected (NotDetected); Entamoeba histolytica PCR Not Detected (NotDetected); Enteroaggregative E.coli(EAEC) Not Detected (NotDetected); Enteropathogenic E.coli (EPEC) Not Detected (NotDetected); Enterotoxigenic E.coli (ETEC) Not Detected (NotDetected); Giardia lamblia PCR Not Detected (NotDetected); Norovirus GI/GII PCR Not Detected (NotDetected); Plesiomonas shigelloides PCR Not Detected (NotDetected); Rotavirus A PCR Not Detected (NotDetected); Salmonella PCR Not Detected (NotDetected); Sapovirus PCR Not Detected (NotDetected); Shiga-like Toxin E.coli (STEC) Not Detected (NotDetected); Shigella/Enteroinvasive E.coli Not Detected (NotDetected); Vibrio cholerae PCR Not Detected (NotDetected); Vibrio species PCR Not Detected (NotDetected); Yersinia enterocolitica PCR Not Detected (NotDetected)
[2022-07-17] MEDS ORDERED: AMPHETAMINE ASP/SULF/DEXTRAMPH 10 MG TAB PO SCH (19:15)
[2022-07-17] MEDS ORDERED: ACETAMINOPHEN 325 MG TAB PO PRN (20:52)
[2022-07-17] MEDS: LURASIDONE HCL 40 MG TAB PO SCH (21:10)
[2022-07-17] MEDS: lamoTRIgine 100 MG TAB PO SCH (21:11)
[2022-07-17] MEDS: ALPRAZolam 0.5 MG TABLET PO PRN (21:14)
[2022-07-18] MEDS: ONDANSETRON INJ 2 MG/ML 2 ML VIAL IV PRN ×3 (02:34→17:45)
[2022-07-18] MEDS: MoRPHine SULFATE 4 MG/ML 1 ML CARP\\VIAL IV PRN ×2 (02:34→09:00)
[2022-07-18] MEDS ORDERED: PROMETHAZINE HCL 12.5 MG in SODIUM CHLORIDE 0.9% 50 ML IV ONE (05:30)
--- NOTE | 2022-07-18 06:18 | Electrocardiogram Report ---
Test Reason : Blood Pressure : / mmHG Vent. Rate : 088 BPM Atrial Rate : 088 BPM P-R Int : 166 ms QRS Dur : 092 ms QT Int : 372 ms P-R-T Axes : 040 073 046 degrees QTc Int : 450 ms Normal sinus rhythm Normal ECG When compared with ECG of 28-JUL-2019 10:49, Nonspecific T wave abnormality no longer evident in Inferior leads Confirmed by Ki Batista ([id number]) on 07/18/2022 6:18:18 AM Referred By: REFERRED SELF Confirmed By:Ki Batista
[2022-07-18 07:28] LABS: Hematocrit (blood only) 34.6 % (34.1-44.9); Hemoglobin 11.2 g/dl (12.0-16.0); Mean Corpuscular Hemoglobin 26.7 pg (25.0-34.0); Mean Corpuscular Hgb Conc 32.4 g/dL (32.0-36.0); Mean Corpuscular Volume 82.4 fL (80.0-100.0); Mean Platelet Volume 9.9 fL (9.4-12.3); Platelet Count 261 K/uL (130-400); White Blood Count 6.47 K/ul (4.8-10.8)
[2022-07-18 08:15] LABS: Albumin Globulin Ratio 1.1 (0.9-2); Albumin Level 3.3 gm/dl (3.4-5.0); BUN Creatinine Ratio 14.3 (10-20); Bilirubin,Total 0.3 mg/dl (0.2-1.0); C Reactive Protein 6.27 mg/dl (0-0.5); Calcium 8.3 mg/dl (8.5-10.1); Creatinine Clr Calc Pharmacy 138.1 ml/min; Est GFR (African American) 132.9 ml/min; Est GFR (Non-African American) 114.6 ml/min; Magnesium 1.8 mg/dl (1.7-2.4); Phosphorus 2.9 mg/dl (2.5-4.9); Potassium 3.3 mmol/L (3.5-5.1); Total Protein 6.3 gm/dl (6.0-8.3)
[2022-07-18] MEDS: CIPROFLOXACIN / D5W 400 MG/200 ML BAG IV SCH ×2 (08:52→21:10)
[2022-07-18] MEDS: PANTOprazole 40 MG TAB PO SCH (08:56)
[2022-07-18] MEDS ORDERED: AMPHETAMINE ASP/SULF/DEXTRAMPH 10 MG TAB PO SCH ×2 (09:00→16:00)
[2022-07-18] MEDS ORDERED: MoRPHine SULFATE 4 MG/ML 1 ML CARP\\VIAL IV PRN (09:33)
[2022-07-18] MEDS: AMPHETAMINE ASP/SULF/DEXTRAMPH 20 MG TAB PO SCH (11:00)
--- NOTE | 2022-07-18 11:32 | Gastroenterology Progress Note ---
Date of Service July 18, 2022 Assessment & Plan (1) Partial small bowel obstruction: (2) Abdominal pain: (3) Abnormal finding on GI tract imaging: Plan: Because stool studies (-), most likely, this represents new IBD Plan IV fluids, antiemetics, analgesics. Solumedrol 20 mg TID Diet per surgery but OK for clear liquids per GI. OP Colonoscopy is arranged for next Thursday - may need to move back if pt not improved and discharged by then. OP GI office visit arranged for the week after the Colonoscopy. Admission and Anticipated Discharge Date Admission Date: July 17, 2022 Supervising Physician Co-Signing Physician Notes I performed a history and physical examination of the patient today, including specifically on physical exam - soft abdomen. I have discussed the patient's management with the advanced practitioner. Please refer to the nurse pra ginnaitioner's note for the documented findings and plan of care. Enteritis. Stool work up negative. Start Steroids for now. Monitor SBO. Colonoscopy next week. Subjective 32 yr old female admitted 07/17 for N/V/D. CT w small bowel wall thickening, partial SBO. Per pt, "vomited all night long last night, didn't get any sleep." Pt tells me no BM since in the ED yesterday. Pt sleeping when I arrived. C/O pain when wakened. Laying on her side. On exam abd soft, non-distended. Review of Systems 2 Review of Systems: ROS: Gen: +hot/chills + weight loss Eyes: No eye redness, or pain, no recent vision changes Nose/throat: denies sore throat or nasal congestion Resp: No SOB, no cough Cardio: No palpitations/irregular beats, no chest pain GI: As per HPI, otherwise (-) : Denies pain on urination Skin: + had a red, dry, itchy, bumpy rash on the face at the onset of this illness; no rash elsewhere. No jaundice A total of 12 systems were reviewed,all others (-) Physical Exam Constitutional: WD/WN, vitals as above Eyes: PERRL, conjunctivae normal, anicteric sclerae ENMT: external ear and nose normal, oropharynx normal Neck: trachea midline, no thyromegaly Respiratory: normal respiratory effort, lungs clear to auscultation Cardiovascular: RRR, no murmur, no edema Gastrointestinal (Abdomen): Inspection/Auscultation: normal bowel sounds; abdomen not distended Percussion/Palpation: + abdomen tender (diffusely tender RUQ, RLQ more than left side) Skin: no rashes, warm and dry Neurologic: PERRL, EOMI, accommodation nl, no face palsy, no dysarthria Psychiatric: A+Ox3, euthymic affect Lymphatic: no cervical or axillary lymphadenopathy Results & Data ([facility]) Vital Signs (Past 12 Hours) Vital Signs Temp Pulse Pulse Pulse Resp BP BP 07/18/22 11:07 37.3 C 82 20 106/71 07/18/22 07:52 37.1 C 70 20 149/91 H 07/18/22 07:07 78 07/18/22 03:37 37.1 C 91 H 16 127/83 Pulse Ox O2 Del Method 07/18/22 11:07 96 Room Air 07/18/22 07:52 98 Room Air 07/18/22 07:07 07/18/22 03:37 95 Room Air Laboratory Results WBC 6.4, Hb 11.2, Hct 34.6, Plts 261, Na 136, K 3.3, Cl 101, CO2 29, BUN 10, Cr 0.7, glucose 96. Stools (-) for C-diff/culture. Diagnostic Findings CTAP w IV contrast 07/17/22: 1. Multifocal small bowel wall thickening with associated ascites and mesenteric stranding. The bowel wall thickening results in a partial small bowel obstruction with transition points, as described above. Although nonspecific, an infectious or inflammatory enteritis is favored. Crohn's disease is within the differential. No abscess. No pneumatosis, free air or portal venous gas. Close clinical follow-up is recommended. Findings discussed with Dr. London at time of dictation. 2. Normal appendix.
[2022-07-18] MEDS: LACTATED RINGER'S 1,000 ML IV SCH (11:52)
--- NOTE | 2022-07-18 11:52 | Hospitalist Progress Note ---
Date of Service July 18, 2022 Assessment & Plan (1) Abdominal pain: (2) Partial small bowel obstruction: (3) UTI (urinary tract infection): (4) ADHD: Plan 32 y/o female right sided abdominal pain x 4 days. + nausea, vomiting, and liquid diarrhea without hematochezia. +fevers and chills at home; afebrile here. ESR and CRP pending. Abdominal CT: Multifocal small bowel wall thickening with associated ascites and mesenteric stranding, suggestive of partial small bowel obstruction. Possible infectious or inflammatory enteritis is favored. Crohn's disease is within the differential. No abscess. No pneumatosis, free air or portal venous gas. + tender without signs of peritonitis on exam. No leukocytosis. Negative screen/hcg. Patient is admitted to the telemetry floor for further treatment. Abdominal pain Partial SBO: Nausea and vomiting: Infectious Enteritis Vs Inflammatory Bowel Disease -Presented with abdominal pain, nausea and vomiting for 4 days prior to admission. -Afebrile, normotensive and saturating well in room air. -No leukocytosis; will trend. Lipase negative -ESR88, CRP6.27 -Urinalysis showed 3+ blood with 3+ leukocyte esterase and bacteria. -Stool bio fire negative -Abdominal CT results: Multifocal small bowel wall thickening with associated ascites and mesenteric stranding. Suggestive of partial SBO. No abscess. No pneumatosis, free air or portal venous gas. Plan; Inflammatory markers including ESR and CRP are elevated. Stool bio fire is negative. Patient is started on steroid for possible inflammatory bowel disease. Stool calprotectin ordered Continue supportive care with IV fluids with LR. Currently on ciprofloxacin and Flagyl for now. Currently on clear liquid diet; advance as tolerated. Continue antiemetic and analgesics. UTI: -3+ Leukocyte Esterase on UA -Currently on Cipro; will follow urine culture. -Hcg neg. LMP started 07/15 ADHD: Continue Adderall 10 mg Q AM 10 mg Q PM Continue Latuda GERD: Continue Omeprazole Disposition: PCP: Dr. Zaragoza VTE Prophlyaxis: Heparin Code: Full code Admission and Anticipated Discharge Date Admission Date: July 17, 2022 Subjective Patient seen and examined at bedside. She is lying on the bed; she continues to complain of abdominal pain in epigastric region. She also had episodes of nausea and vomiting in the morning. She reports that her last bowel movement was yesterday. Review of Systems Review of Systems: All systems reviewed & are unremarkable except as noted in Subjective Physical Exam Physical Exam: Constitutional: WD/WN, vitals as above, NAD, sitting up in bed, pleasant, conversing easily Respiratory: normal respiratory effort, lungs clear to auscultation, no wheeze, rales, rhonchi. Normal insp/exp effort, no accessory muscle use Cardiovascular: RRR, no murmur, no edema Vessels: no JVD or carotid bruit Chest: normal inspection of chest Abdomen: Tender to palpation in epigastric region. Soft. Bowel sound present. Musculoskeletal: no cyanosis or clubbing, extremities motor strength 5/5 Skin: no rashes, warm and dry normal turgor Neurologic: PERRL, EOMI, accommodation nl, no face palsy, no dysarthria CN's II- XI intact bilaterally and moves all extremities Psychiatric: A+Ox3, euthymic affect Lymphatic: no cervical or axillary lymphadenopathy : deferred Results & Data Results & Data ([facility]) Vital Signs (Past 12 Hours) Vital Signs Temp Pulse Pulse Pulse Resp BP BP 07/18/22 11:07 37.3 C 82 20 106/71 07/18/22 07:52 37.1 C 70 20 149/91 H 07/18/22 07:07 78 07/18/22 03:37 37.1 C 91 H 16 127/83 Pulse Ox O2 Del Method 07/18/22 11:07 96 Room Air 07/18/22 07:52 98 Room Air 07/18/22 07:07 07/18/22 03:37 95 Room Air Laboratory Results Laboratory Results WBC 6.47 K/ul (4.8-10.8) 07/18/22 06:44 RBC 4.20 M/uL (3.93-5.22) 07/18/22 06:44 Hgb 11.2 g/dl (12.0-16.0) L 07/18/22 06:44 Hct 34.6 % (34.1-44.9) 07/18/22 06:44 MCV 82.4 fL (80.0-100.0) 07/18/22 06:44 MCH 26.7 pg (25.0-34.0) 07/18/22 06:44 MCHC 32.4 g/dL (32.0-36.0) 07/18/22 06:44 RDW Std Deviation 45.0 fL (36.4-46.3) 07/18/22 06:44 RDW Coeff of Dax 15.0 % (11.5-14.5) H 07/18/22 06:44 Plt Count 261 K/uL (130-400) 07/18/22 06:44 MPV 9.9 fL (9.4-12.3) 07/18/22 06:44 Immature Gran % (Auto) 0.2 % 07/17/22 09:27 Neut % (Auto) 73.8 % 07/17/22 09:27 Lymph % (Auto) 15.8 % 07/17/22 09:27 [place] % (Auto) 8.3 % 07/17/22 09:27 Eos % (Auto) 1.6 % 07/17/22 09:27 Baso % (Auto) 0.3 % 07/17/22 09:27 Neut # (Auto) 6.66 K/uL (1.4-6.5) H 07/17/22 09:27 Lymph # (Auto) 1.43 K/uL (1.2-3.4) 07/17/22 09:27 [place] # (Auto) 0.75 K/uL (0.24-0.82) 07/17/22 09:27 Eos # (Auto) 0.14 K/uL (0-0.50) 07/17/22 09:27 Baso # (Auto) 0.03 K/uL (0-0.2) 07/17/22 09:27 Immature Gran # (Auto) 0.02 K/uL (0.00-0.02) 07/17/22 09:27 ESR 88 mm/hr (0-20) H 07/18/22 06:44 Sodium 136 mmol/L (136-145) 07/18/22 06:44 Potassium 3.3 mmol/L (3.5-5.1) L 07/18/22 06:44 Chloride 101 mmol/L (98-107) 07/18/22 06:44 Carbon Dioxide 29 mmol/L (21-32) 07/18/22 06:44 Anion Gap 6 (3-11) 07/18/22 06:44 BUN 10 mg/dl (6-23) 07/18/22 06:44 Creatinine 0.70 mg/dl (0.6-1.2) 07/18/22 06:44 Est Cr Clr Drug Dosing 138.1 ml/min 07/18/22 06:44 Est GFR ( Amer) 132.9 ml/min 07/18/22 06:44 Est GFR (Non-Af Amer) 114.6 ml/min 07/18/22 06:44 BUN/Creatinine Ratio 14.3 (10-20) 07/18/22 06:44 Glucose 96 mg/dl (70-99(Fasting)) 07/18/22 06:44 Calcium 8.3 mg/dl (8.5-10.1) L 07/18/22 06:44 Phosphorus 2.9 mg/dl (2.5-4.9) 07/18/22 06:44 Magnesium 1.8 mg/dl (1.7-2.4) 07/18/22 06:44 Iron 43 mcg/dl (35-150) 07/17/22 16:23 Total Bilirubin 0.3 mg/dl (0.2-1.0) 07/18/22 06:44 AST 12 U/L (13-39) L 07/18/22 06:44 ALT 9 U/L (7-52) 07/18/22 06:44 Alkaline Phosphatase 72 U/L (34-104) 07/18/22 06:44 C-Reactive Protein 6.27 mg/dl (0-0.5) H 07/18/22 06:44 Total Protein 6.3 gm/dl (6.0-8.3) 07/18/22 06:44 Albumin 3.3 gm/dl (3.4-5.0) L 07/18/22 06:44 Globulin 3.0 gm/dl (2.5-4.0) 07/18/22 06:44 Albumin/Globulin Ratio 1.1 (0.9-2) 07/18/22 06:44 Lipase 20 U/L (11-82) 07/17/22 09:27 Vitamin B12 289 pg/ml (180-914) 07/17/22 09:27 Folate 6.08 ng/ml (>5.38) 07/17/22 09:27 HCG, Qual Negative (Negative) 07/17/22 09:27 Urine Color Yellow 07/17/22 12:04 Urine Appearance Cloudy (Clear) A 07/17/22 12:04 Urine pH 6.5 (4.5-7.5) 07/17/22 12:04 Ur Specific [place] 1.017 (1.000-1.030) 07/17/22 12:04 Urine Protein Negative (Negative) 07/17/22 12:04 Urine Glucose (UA) Negative (Negative) 07/17/22 12:04 Urine Ketones Negative (Negative) 07/17/22 12:04 Urine Blood 3+ (Negative) H 07/17/22 12:04 Urine Nitrite Negative (Negative) 07/17/22 12:04 Urine Bilirubin Negative (Negative) 07/17/22 12:04 Urine Urobilinogen Negative (Negative) 07/17/22 12:04 Ur Leukocyte Esterase 3+ (Negative) H 07/17/22 12:04 Urine WBC (Auto) >30 /hpf (0-5) H 07/17/22 12:04 Urine RBC (Auto) 5-10 /hpf (0-4) H 07/17/22 12:04 U Hyaline Cast (Auto) >30 /lpf (0-5) H 07/17/22 12:04 U Epithel Cells (Auto) >30 /lpf (0-5) H 07/17/22 12:04 Urine Bacteria (Auto) 1+ (Negative) H 07/17/22 12:04 Granular Casts 5-10 /lpf (0) H 07/17/22 12:04 Stl C. cayetanensis PCR Not Detected (NotDetected) 07/17/22 14:10 Stool Rotavirus A PCR Not Detected (NotDetected) 07/17/22 14:10 Stl Adenov F 40/41 PCR Not Detected (NotDetected) 07/17/22 14:10 Stool Astrovirus (PCR) Not Detected (NotDetected) 07/17/22 14:10 Stool Campylobacter PCR Not Detected (NotDetected) 07/17/22 14:10 Stl C. diff Tox A/B PCR Not Detected (NotDetected) 07/17/22 14:10 Stool Cryptosporidium PCR Not Detected (NotDetected) 07/17/22 14:10 Stl E.coli Shiga Tox PCR Not Detected (NotDetected) 07/17/22 14:10 Stl Enterotoxigenic E PCR Not Detected (NotDetected) 07/17/22 14:10 Stool EPEC (PCR) Not Detected (NotDetected) 07/17/22 14:10 Stool EAEC (PCR) Not Detected (NotDetected) 07/17/22 14:10 Stl E. histolytica PCR Not Detected (NotDetected) 07/17/22 14:10 Stool Giardia Lamblia PCR Not Detected (NotDetected) 07/17/22 14:10 Stool Salmonella PCR Not Detected (NotDetected) 07/17/22 14:10 Stool Sapovirus (PCR) Not Detected (NotDetected) 07/17/22 14:10 Stl P. shigelloides PCR Not Detected (NotDetected) 07/17/22 14:10 Stl Shigella/EIEC PCR Not Detected (NotDetected) 07/17/22 14:10 St Y.enterocolitica PCR Not Detected (NotDetected) 07/17/22 14:10 Stool Vibrio (PCR) Not Detected (NotDetected) 07/17/22 14:10 Stl Vibrio cholerae PCR Not Detected (NotDetected) 07/17/22 14:10 Stl Norovirus GI/GII PCR Not Detected (NotDetected) 07/17/22 14:10 SARS-CoV-2, RNA, NAAT NEGATIVE (NEGATIVE) 07/17/22 12:09 Impressions Abdomen/Pelvis CT 07/17/22 09:34 CT OF THE ABDOMEN AND PELVIS WITH CONTRAST CLINICAL HISTORY: Right-sided abdominal pain. COMPARISON STUDY: CT of the abdomen and pelvis and right upper quadrant ultrasound September 23, 2019 TECHNIQUE: Following IV administration of 94 mL of Optiray, axial images of the abdomen and pelvis were obtained from the lung bases to the proximal femurs. Images were reviewed in the axial, sagittal, and coronal planes. IV contrast was administered without complication. Automated exposure control was utilized for the study. A dose lowering technique was utilized adhering to the principles of ALARA. CT DOSE: 532.34 mGy.cm FINDINGS: Lung bases are unremarkable. No pneumatosis, free air or portal venous gas is present. The liver, spleen, adrenal glands, kidneys and pancreas are unremarkable. There is no hydronephrosis. There is no biliary or pancreatic ductal dilatation. The appendix is normal. A small amount of abdominal ascites is noted. There is mesenteric stranding. Multifocal small bowel wall thickening is noted. This results in mild dilated fluid-filled small bowel loops which measure up to 3.3 cm in caliber. Small bowel feces sign is noted. No pneumatosis, free air or portal venous gas is present. There is no abscess. Major vasculature is patent. Terminal ileum is within normal limits by CT. Intrauterine device is in place. Ovaries are not enlarged. IMPRESSION: 1. Multifocal small bowel wall thickening with associated ascites and mesenteric stranding. The bowel wall thickening results in a partial small bowel obstruction with transition points, as described above. Although nonspecific, an infectious or inflammatory enteritis is favored. Crohn's disease is within the differential. No abscess. No pneumatosis, free air or portal venous gas. Close clinical follow-up is recommended. Findings discussed with Dr. London at time of dictation. 2. Normal appendix. ACT 112: Negative or not required by law. Electronically signed by: Jose Emerson M.D. 07/17/2022 12:44 PM
[2022-07-18] MEDS: POTASSIUM CHLORIDE / WTR 10 MEQ/100 ML PLCT IV SCH ×2 (11:55→12:56)
[2022-07-18] MEDS: AMPHETAMINE ASP/SULF/DEXTRAMPH 10 MG TAB PO SCH ×2 (11:58→15:07)
[2022-07-18] MEDS: metroNIDAZOLE 500 MG/100 ML BAG IV SCH ×2 (12:13→21:07)
[2022-07-18] MEDS: MoRPHine SULFATE 2 MG/ML CARP IV PRN ×3 (13:30→21:42)
[2022-07-18] MEDS: methylPREDNISolone 20 MG in SYRINGE 0 ML IV SCH ×2 (14:55→21:08)
[2022-07-18] MEDS: PROMETHAZINE HCL 25 MG in SODIUM CHLORIDE 0.9% 50 ML IV PRN (16:24)
[2022-07-18] MEDS ORDERED: PROCHLORPERAZINE 5 MG in SYRINGE 4 ML IV ONE (20:30)
[2022-07-18] MEDS: lamoTRIgine 100 MG TAB PO SCH ×2 (21:08)
[2022-07-18] MEDS: LURASIDONE HCL 40 MG TAB PO SCH ×2 (21:08→21:09)
[2022-07-19] MEDS: LACTATED RINGER'S 1,000 ML IV SCH ×2 (00:59→17:15)
[2022-07-19] MEDS: PROMETHAZINE HCL 25 MG in SODIUM CHLORIDE 0.9% 50 ML IV PRN ×3 (03:19→17:42)
[2022-07-19] MEDS: MoRPHine SULFATE 2 MG/ML CARP IV PRN ×4 (03:19→20:47)
[2022-07-19] MEDS: metroNIDAZOLE 500 MG/100 ML BAG IV SCH ×3 (03:24→19:30)
[2022-07-19] MEDS: methylPREDNISolone 20 MG in SYRINGE 0 ML IV SCH ×3 (06:20→23:13)
[2022-07-19 06:39] LABS: Basophils # (auto) 0.01 K/uL (0-0.2); Basophils % (auto) 0.1 %; Hematocrit (blood only) 35.5 % (34.1-44.9); Immature Granulocytes # (auto) 0.05 K/uL (0.00-0.02); Immature Granulocytes % (auto) 0.6 %; Lymphocytes # (auto) 1.28 K/uL (1.2-3.4); Lymphocytes % (auto) 15.6 %; Mean Corpuscular Hemoglobin 26.8 pg (25.0-34.0); Mean Corpuscular Hgb Conc 33.8 g/dL (32.0-36.0); Mean Corpuscular Volume 79.4 fL (80.0-100.0); Mean Platelet Volume 9.8 fL (9.4-12.3); Monocytes # (auto) 0.52 K/uL (0.24-0.82); Monocytes % (auto) 6.3 %; Neutrophils # (auto) 6.37 K/uL (1.4-6.5); Neutrophils % (auto) 77.4 %; Platelet Count 309 K/uL (130-400); RDW Coefficient of Variation 14.7 % (11.5-14.5); RDW Standard Deviation 42.6 fL (36.4-46.3); Red Blood Count 4.47 M/uL (3.93-5.22); White Blood Count 8.23 K/ul (4.8-10.8)
[2022-07-19] MEDS: AMPHETAMINE ASP/SULF/DEXTRAMPH 10 MG TAB PO SCH ×2 (06:40→15:47)
[2022-07-19 07:31] LABS: BUN Creatinine Ratio 14.9 (10-20); Calcium 8.5 mg/dl (8.5-10.1); Creatinine Clr Calc Pharmacy 144.3 ml/min; Est GFR (African American) 134.8 ml/min; Est GFR (Non-African American) 116.3 ml/min; Potassium 3.8 mmol/L (3.5-5.1)
[2022-07-19] MEDS: CIPROFLOXACIN / D5W 400 MG/200 ML BAG IV SCH ×2 (07:59→21:09)
[2022-07-19] MEDS: PANTOprazole 40 MG TAB PO SCH (07:59)
[2022-07-19] MEDS: ONDANSETRON INJ 2 MG/ML 2 ML VIAL IV PRN ×3 (08:05→20:47)
--- NOTE | 2022-07-19 09:46 | XRay Report ---
KUB HISTORY: Follow up on small bowel obstruction COMPARISON: Abdomen and pelvis CT 07/17/2022. FINDINGS: There again noted a few mildly dilated gas-filled loops of small bowel seen within the abdo men. There is gas and stool seen throughout the colon. An intrauterine device is seen within the mid pelvis. No renal calculi. No ureteral calculi. No pneumoperitoneum or pneumatosis. IMPRESSION: No significant change in the dilated gas-filled loops of small bowel consistent with a small bowel ob struction. ACT 112: Negative or not required by law. Electronically signed by: Chente Shine M.D. 07/19/2022 9:45 AM
[2022-07-19] MEDS: AMPHETAMINE ASP/SULF/DEXTRAMPH 20 MG TAB PO SCH (12:13)
--- NOTE | 2022-07-19 13:27 | Hospitalist Progress Note ---
Date of Service July 19, 2022 Assessment & Plan (1) Abdominal pain: (2) Partial small bowel obstruction: (3) UTI (urinary tract infection): (4) ADHD: Plan 32 y/o female right sided abdominal pain x 4 days. + nausea, vomiting, and liquid diarrhea without hematochezia. +fevers and chills at home; afebrile here. ESR and CRP pending. Abdominal CT: Multifocal small bowel wall thickening with associated ascites and mesenteric stranding, suggestive of partial small bowel obstruction. Possible infectious or inflammatory enteritis is favored. Crohn's disease is within the differential. No abscess. No pneumatosis, free air or portal venous gas. + tender without signs of peritonitis on exam. No leukocytosis. Negative screen/hcg. Patient is admitted to the telemetry floor for further treatment. Abdominal pain Partial SBO: Nausea and vomiting: Infectious Enteritis Vs Inflammatory Bowel Disease -Presented with abdominal pain, nausea and vomiting for 4 days prior to admission. -Afebrile, normotensive and saturating well in room air. -No leukocytosis; will trend. Lipase negative -ESR88, CRP6.27 -Urinalysis showed 3+ blood with 3+ leukocyte esterase and bacteria. -Stool bio fire negative -Abdominal CT results: Multifocal small bowel wall thickening with associated ascites and mesenteric stranding. Suggestive of partial SBO. No abscess. No pneumatosis, free air or portal venous gas. Follow-up KUB shows persistent small bowel dilation. Plan; Inflammatory markers including ESR and CRP are elevated. Stool bio fire is negative. Patient is started on steroid for possible inflammatory bowel diseas e. Stool calprotectin pending. Continue supportive care with IV fluids with LR. Currently on ciprofloxacin and Flagyl for now. We will keep n.p.o. for now. Will advance diet as abdominal pain and vomiting subsides. UTI: -3+ Leukocyte Esterase on UA -Urine culture shows gram-negative bacilli. Continue on Cipro -Hcg neg. LMP started 07/15 ADHD: Continue Adderall 10 mg Q AM 10 mg Q PM Continue Latuda GERD: Continue Omeprazole Disposition: PCP: Dr. Zaragoza VTE Prophlyaxis: Heparin Code: Full code Admission and Anticipated Discharge Date Admission Date: July 17, 2022 Subjective Patient seen and examined at bedside. She continues to have abdominal pain in the epigastric region. Continues to have multiple episode of vomiting. Follow-up KUB showed similar presentation to yesterday. Review of Systems Review of Systems: All systems reviewed & are unremarkable except as noted in Subjective Physical Exam Physical Exam: Constitutional: Alert orient x3. significant distress due to abdominal pain. Respiratory: normal respiratory effort, lungs clear to auscultation, no wheeze, rales, rhonchi. Normal insp/exp effort, no accessory muscle use Cardiovascular: RRR, no murmur, no edema Vessels: no JVD or carotid bruit Chest: normal inspection of chest Abdomen: Tender to palpation in epigastric region. Musculoskeletal: no cyanosis or clubbing, extremities motor strength 5/5 Skin: no rashes, warm and dry normal turgor Neurologic: PERRL, EOMI, accommodation nl, no face palsy, no dysarthria CN's II- XI intact bilaterally and moves all extremities Psychiatric: A+Ox3, euthymic affect Lymphatic: no cervical or axillary lymphadenopathy : deferred Results & Data Results & Data ([facility]) Vital Signs (Past 12 Hours) Vital Signs Temp Pulse Pulse Resp BP BP Pulse Ox 07/19/22 12:47 36.8 C 59 L 20 165/102 H 100 07/19/22 10:44 59 L 07/19/22 07:40 37.1 C 59 L 20 174/94 H 95 07/19/22 04:10 37.2 C 63 16 147/98 H 98 O2 Del Method 07/19/22 12:47 Room Air 07/19/22 10:44 07/19/22 07:40 Room Air 07/19/22 04:10 Room Air Laboratory Results Laboratory Results WBC 8.23 K/ul (4.8-10.8) 07/19/22 06:09 RBC 4.47 M/uL (3.93-5.22) 07/19/22 06:09 Hgb 12.0 g/dl (12.0-16.0) 07/19/22 06:09 Hct 35.5 % (34.1-44.9) 07/19/22 06:09 MCV 79.4 fL (80.0-100.0) L 07/19/22 06:09 MCH 26.8 pg (25.0-34.0) 07/19/22 06:09 MCHC 33.8 g/dL (32.0-36.0) 07/19/22 06:09 RDW Std Deviation 42.6 fL (36.4-46.3) 07/19/22 06:09 RDW Coeff of Dax 14.7 % (11.5-14.5) H 07/19/22 06:09 Plt Count 309 K/uL (130-400) 07/19/22 06:09 MPV 9.8 fL (9.4-12.3) 07/19/22 06:09 Immature Gran % (Auto) 0.6 % 07/19/22 06:09 Neut % (Auto) 77.4 % 07/19/22 06:09 Lymph % (Auto) 15.6 % 07/19/22 06:09 [place] % (Auto) 6.3 % 07/19/22 06:09 Eos % (Auto) 0.0 % 07/19/22 06:09 Baso % (Auto) 0.1 % 07/19/22 06:09 Neut # (Auto) 6.37 K/uL (1.4-6.5) 07/19/22 06:09 Lymph # (Auto) 1.28 K/uL (1.2-3.4) 07/19/22 06:09 [place] # (Auto) 0.52 K/uL (0.24-0.82) 07/19/22 06:09 Eos # (Auto) 0.00 K/uL (0-0.50) 07/19/22 06:09 Baso # (Auto) 0.01 K/uL (0-0.2) 07/19/22 06:09 Immature Gran # (Auto) 0.05 K/uL (0.00-0.02) H 07/19/22 06:09 ESR 88 mm/hr (0-20) H 07/18/22 06:44 Sodium 135 mmol/L (136-145) L 07/19/22 06:09 Potassium 3.8 mmol/L (3.5-5.1) 07/19/22 06:09 Chloride 101 mmol/L (98-107) 07/19/22 06:09 Carbon Dioxide 27 mmol/L (21-32) 07/19/22 06:09 Anion Gap 7 (3-11) 07/19/22 06:09 BUN 10 mg/dl (6-23) 07/19/22 06:09 Creatinine 0.67 mg/dl (0.6-1.2) 07/19/22 06:09 Est Cr Clr Drug Dosing 144.3 ml/min 07/19/22 06:09 Est GFR ( Amer) 134.8 ml/min 07/19/22 06:09 Est GFR (Non-Af Amer) 116.3 ml/min 07/19/22 06:09 BUN/Creatinine Ratio 14.9 (10-20) 07/19/22 06:09 Glucose 106 mg/dl (70-99(Fasting)) H 07/19/22 06:09 Calcium 8.5 mg/dl (8.5-10.1) 07/19/22 06:09 Phosphorus 2.9 mg/dl (2.5-4.9) 07/18/22 06:44 Magnesium 1.8 mg/dl (1.7-2.4) 07/18/22 06:44 Iron 43 mcg/dl (35-150) 07/17/22 16:23 Total Bilirubin 0.3 mg/dl (0.2-1.0) 07/18/22 06:44 AST 12 U/L (13-39) L 07/18/22 06:44 ALT 9 U/L (7-52) 07/18/22 06:44 Alkaline Phosphatase 72 U/L (34-104) 07/18/22 06:44 C-Reactive Protein 6.27 mg/dl (0-0.5) H 07/18/22 06:44 Total Protein 6.3 gm/dl (6.0-8.3) 07/18/22 06:44 Albumin 3.3 gm/dl (3.4-5.0) L 07/18/22 06:44 Globulin 3.0 gm/dl (2.5-4.0) 07/18/22 06:44 Albumin/Globulin Ratio 1.1 (0.9-2) 07/18/22 06:44 Lipase 20 U/L (11-82) 07/17/22 09:27 Vitamin B12 289 pg/ml (180-914) 07/17/22 09:27 Folate 6.08 ng/ml (>5.38) 07/17/22 09:27 HCG, Qual Negative (Negative) 07/17/22 09:27 Urine Color Yellow 07/17/22 12:04 Urine Appearance Cloudy (Clear) A 07/17/22 12:04 Urine pH 6.5 (4.5-7.5) 07/17/22 12:04 Ur Specific [place] 1.017 (1.000-1.030) 07/17/22 12:04 Urine Protein Negative (Negative) 07/17/22 12:04 Urine Glucose (UA) Negative (Negative) 07/17/22 12:04 Urine Ketones Negative (Negative) 07/17/22 12:04 Urine Blood 3+ (Negative) H 07/17/22 12:04 Urine Nitrite Negative (Negative) 07/17/22 12:04 Urine Bilirubin Negative (Negative) 07/17/22 12:04 Urine Urobilinogen Negative (Negative) 07/17/22 12:04 Ur Leukocyte Esterase 3+ (Negative) H 07/17/22 12:04 Urine WBC (Auto) >30 /hpf (0-5) H 07/17/22 12:04 Urine RBC (Auto) 5-10 /hpf (0-4) H 07/17/22 12:04 U Hyaline Cast (Auto) >30 /lpf (0-5) H 07/17/22 12:04 U Epithel Cells (Auto) >30 /lpf (0-5) H 07/17/22 12:04 Urine Bacteria (Auto) 1+ (Negative) H 07/17/22 12:04 Granular Casts 5-10 /lpf (0) H 07/17/22 12:04 Stl C. cayetanensis PCR Not Detected (NotDetected) 07/17/22 14:10 Stool Rotavirus A PCR Not Detected (NotDetected) 07/17/22 14:10 Stl Adenov F 40/41 PCR Not Detected (NotDetected) 07/17/22 14:10 Stool Astrovirus (PCR) Not Detected (NotDetected) 07/17/22 14:10 Stool Campylobacter PCR Not Detected (NotDetected) 07/17/22 14:10 Stl C. diff Tox A/B PCR Not Detected (NotDetected) 07/17/22 14:10 Stool Cryptosporidium PCR Not Detected (NotDetected) 07/17/22 14:10 Stl E.coli Shiga Tox PCR Not Detected (NotDetected) 07/17/22 14:10 Stl Enterotoxigenic E PCR Not Detected (NotDetected) 07/17/22 14:10 Stool EPEC (PCR) Not Detected (NotDetected) 07/17/22 14:10 Stool EAEC (PCR) Not Detected (NotDetected) 07/17/22 14:10 Stl E. histolytica PCR Not Detected (NotDetected) 07/17/22 14:10 Stool Giardia Lamblia PCR Not Detected (NotDetected) 07/17/22 14:10 Stool Salmonella PCR Not Detected (NotDetected) 07/17/22 14:10 Stool Sapovirus (PCR) Not Detected (NotDetected) 07/17/22 14:10 Stl P. shigelloides PCR Not Detected (NotDetected) 07/17/22 14:10 Stl Shigella/EIEC PCR Not Detected (NotDetected) 07/17/22 14:10 St Y.enterocolitica PCR Not Detected (NotDetected) 07/17/22 14:10 Stool Vibrio (PCR) Not Detected (NotDetected) 07/17/22 14:10 Stl Vibrio cholerae PCR Not Detected (NotDetected) 07/17/22 14:10 Stl Norovirus GI/GII PCR Not Detected (NotDetected) 07/17/22 14:10 SARS-CoV-2, RNA, NAAT NEGATIVE (NEGATIVE) 07/17/22 12:09 Impressions Abdomen/Pelvis CT 07/17/22 09:34 CT OF THE ABDOMEN AND PELVIS WITH CONTRAST CLINICAL HISTORY: Right-sided abdominal pain. COMPARISON STUDY: CT of the abdomen and pelvis and right upper quadrant ultrasound September 23, 2019 TECHNIQUE: Following IV administration of 94 mL of Optiray, axial images of the abdomen and pelvis were obtained from the lung bases to the proximal femurs. Images were reviewed in the axial, sagittal, and coronal planes. IV contrast was administered without complication. Automated exposure control was utilized for the study. A dose lowering technique was utilized adhering to the principles of ALARA. CT DOSE: 532.34 mGy.cm FINDINGS: Lung bases are unremarkable. No pneumatosis, free air or portal venous gas is present. The liver, spleen, adrenal glands, kidneys and pancreas are unremarkable. There is no hydronephrosis. There is no biliary or pancreatic ductal dilatation. The appendix is normal. A small amount of abdominal ascites is noted. There is mesenteric stranding. Multifocal small bowel wall thickening is noted. This results in mild dilated fluid-filled small bowel loops which measure up to 3.3 cm in caliber. Small bowel feces sign is noted. No pneumatosis, free air or portal venous gas is present. There is no abscess. Major vasculature is patent. Terminal ileum is within normal limits by CT. Intrauterine device is in place. Ovaries are not enlarged. IMPRESSION: 1. Multifocal small bowel wall thickening with associated ascites and mesenteric stranding. The bowel wall thickening results in a partial small bowel obstruction with transition points, as described above. Although nonspecific, an infectious or inflammatory enteritis is favored. Crohn's disease is within the differential. No abscess. No pneumatosis, free air or portal venous gas. Close clinical follow-up is recommended. Findings discussed with Dr. London at time of dictation. 2. Normal appendix. ACT 112: Negative or not required by law. Electronically signed by: Jose Emerson M.D. 07/17/2022 12:44 PM KUB X-Ray 07/19/22 07:42 KUB HISTORY: Follow up on small bowel obstruction COMPARISON: Abdomen and pelvis CT 07/17/2022. FINDINGS: There again noted a few mildly dilated gas-filled loops of small bowel seen within the abdomen. There is gas and stool seen throughout the colon. An intrauterine device is seen within the mid pelvis. No renal calculi. No ureteral calculi. No pneumoperitoneum or pneumatosis. IMPRESSION: No significant change in the dilated gas-filled loops of small bowel consistent with a small bowel obstruction. ACT 112: Negative or not required by law. Electronically signed by: Chente Shine M.D. 07/19/2022 9:45 AM
[2022-07-19] MEDS: ACETAMINOPHEN 1,000 MG/100 ML VIAL IV SCH ×2 (13:46→23:13)
[2022-07-19] MEDS: lamoTRIgine 100 MG TAB PO SCH (22:09)
[2022-07-19] MEDS: LURASIDONE HCL 40 MG TAB PO SCH (22:09)
[2022-07-20] MEDS: MoRPHine SULFATE 2 MG/ML CARP IV PRN ×4 (02:25→18:29)
[2022-07-20] MEDS: ONDANSETRON INJ 2 MG/ML 2 ML VIAL IV PRN ×3 (02:47→18:29)
[2022-07-20] MEDS: metroNIDAZOLE 500 MG/100 ML BAG IV SCH ×3 (04:11→20:16)
[2022-07-20] MEDS: ACETAMINOPHEN 1,000 MG/100 ML VIAL IV SCH ×3 (05:17→22:00)
[2022-07-20] MEDS: methylPREDNISolone 20 MG in SYRINGE 0 ML IV SCH ×3 (05:35→21:59)
[2022-07-20] MEDS: PROMETHAZINE HCL 25 MG in SODIUM CHLORIDE 0.9% 50 ML IV PRN ×3 (05:55→23:24)
[2022-07-20] MEDS: LACTATED RINGER'S 1,000 ML IV SCH ×2 (06:14→13:23)
[2022-07-20] MEDS: AMPHETAMINE ASP/SULF/DEXTRAMPH 10 MG TAB PO SCH ×2 (07:23→12:49)
[2022-07-20] MEDS: PANTOprazole 40 MG TAB PO SCH (07:23)
[2022-07-20] MEDS: CIPROFLOXACIN / D5W 400 MG/200 ML BAG IV SCH (08:03)
--- NOTE | 2022-07-20 09:08 | XRay Report ---
KUB HISTORY: Acute generalized abdominal pain with small bowel junction Follow up on SBO COMPARISON: KUB 07/19/2022, CT 07/17/2022 FINDINGS: There is persistent gaseous distention of the small bowel which appears slightly improved. IUD of the mid pelvis. No renal calculi. No ureteral calculi. No pneumoperitoneum or pneumatosis. Mi ld dextroscoliosis of the lumbar spine redemonstrated. No fracture. IMPRESSION: Persistent distended loops of small bowel suggestive of small bowel obstruction, mildly improved from yesterday's exam. ACT 112: Negative or not required by law. The above report was generated using voice recognition software. It may contain grammatical, syntax o r spelling errors. Electronically signed by: Kb Fitzgerald M.D. 07/20/2022 9:06 AM
--- NOTE | 2022-07-20 11:11 | Hospitalist Progress Note ---
Date of Service July 20, 2022 Assessment & Plan (1) Abdominal pain: (2) Partial small bowel obstruction: (3) UTI (urinary tract infection): (4) ADHD: Plan 32 y/o female right sided abdominal pain x 4 days. + nausea, vomiting, and liquid diarrhea without hematochezia. +fevers and chills at home; afebrile here. ESR and CRP pending. Abdominal CT: Multifocal small bowel wall thickening with associated ascites and mesenteric stranding, suggestive of partial small bowel obstruction. Possible infectious or inflammatory enteritis is favored. Crohn's disease is within the differential. No abscess. No pneumatosis, free air or portal venous gas. + tender without signs of peritonitis on exam. No leukocytosis. Negative screen/hcg. Patient is admitted to the telemetry floor for further treatment. Abdominal pain Partial SBO: Nausea and vomiting: Likely IBD -Presented with abdominal pain, nausea and vomiting for 4 days prior to admission. -Afebrile, normotensive and saturating well in room air. -No leukocytosis; will trend. Lipase negative -ESR88, CRP6.27 -Urinalysis showed 3+ blood with 3+ leukocyte esterase and bacteria. -Stool bio fire negative -Abdominal CT results: Multifocal small bowel wall thickening with associated ascites and mesenteric stranding. Suggestive of partial SBO. No abscess. No pneumatosis, free air or portal venous gas. Follow-up KUB today shows slight improvement in small bowel obstruction. Plan; Inflammatory markers including ESR and CRP are elevated. Stool bio fire is negative. Patient is started on steroid for possible inflammatory bowel disease. Stool calprotectin pending. Continue supportive care with IV fluids with LR. Currently on ciprofloxacin and Flagyl for now. On clear liquid diet for now. Vomiting improved compared to presentation. UTI: -3+ Leukocyte Esterase on UA -Hcg neg. LMP started 07/15 -Urine culture shows E. coli which is resistant to ciprofloxacin. Will switch ciprofloxacin to ceftriaxone. ADHD: Continue Adderall 10 mg Q AM 10 mg Q PM Continue Latuda GERD: Continue Omeprazole Disposition: PCP: Dr. Zaragoza VTE Prophlyaxis: Heparin Code: Full code Admission and Anticipated Discharge Date Admission Date: July 17, 2022 Subjective Patient seen and examined at bedside. She reports that she no longer has vomiting. She is still nauseous. She is passing flatus KUB showed improvement in small bowel obstruction. Review of Systems Review of Systems: All systems reviewed & are unremarkable except as noted in Subjective Physical Exam Physical Exam: Constitutional: Alert orient x3. significant distress due to abdominal pain. Respiratory: normal respiratory effort, lungs clear to auscultation, no wheeze, rales, rhonchi. Normal insp/exp effort, no accessory muscle use Cardiovascular: RRR, no murmur, no edema Vessels: no JVD or carotid bruit Chest: normal inspection of chest Abdomen: Tender to palpation in epigastric region. Musculoskeletal: no cyanosis or clubbing, extremities motor strength 5/5 Skin: no rashes, warm and dry normal turgor Neurologic: PERRL, EOMI, accommodation nl, no face palsy, no dysarthria CN's II- XI intact bilaterally and moves all extremities Psychiatric: A+Ox3, euthymic affect Lymphatic: no cervical or axillary lymphadenopathy : deferred Results & Data Results & Data ([facility]) Vital Signs (Past 12 Hours) Vital Signs Temp Pulse Resp BP Pulse Ox O2 Del Method 07/20/22 06:42 36.7 C 56 L 18 158/96 H 97 Room Air 07/20/22 03:00 36.7 C 57 L 20 157/99 H 97 Room Air Laboratory Results Laboratory Results WBC 8.23 K/ul (4.8-10.8) 07/19/22 06:09 RBC 4.47 M/uL (3.93-5.22) 07/19/22 06:09 Hgb 12.0 g/dl (12.0-16.0) 07/19/22 06:09 Hct 35.5 % (34.1-44.9) 07/19/22 06:09 MCV 79.4 fL (80.0-100.0) L 07/19/22 06:09 MCH 26.8 pg (25.0-34.0) 07/19/22 06:09 MCHC 33.8 g/dL (32.0-36.0) 07/19/22 06:09 RDW Std Deviation 42.6 fL (36.4-46.3) 07/19/22 06:09 RDW Coeff of Dax 14.7 % (11.5-14.5) H 07/19/22 06:09 Plt Count 309 K/uL (130-400) 07/19/22 06:09 MPV 9.8 fL (9.4-12.3) 07/19/22 06:09 Immature Gran % (Auto) 0.6 % 07/19/22 06:09 Neut % (Auto) 77.4 % 07/19/22 06:09 Lymph % (Auto) 15.6 % 07/19/22 06:09 [place] % (Auto) 6.3 % 07/19/22 06:09 Eos % (Auto) 0.0 % 07/19/22 06:09 Baso % (Auto) 0.1 % 07/19/22 06:09 Neut # (Auto) 6.37 K/uL (1.4-6.5) 07/19/22 06:09 Lymph # (Auto) 1.28 K/uL (1.2-3.4) 07/19/22 06:09 [place] # (Auto) 0.52 K/uL (0.24-0.82) 07/19/22 06:09 Eos # (Auto) 0.00 K/uL (0-0.50) 07/19/22 06:09 Baso # (Auto) 0.01 K/uL (0-0.2) 07/19/22 06:09 Immature Gran # (Auto) 0.05 K/uL (0.00-0.02) H 07/19/22 06:09 ESR 88 mm/hr (0-20) H 07/18/22 06:44 Sodium 135 mmol/L (136-145) L 07/19/22 06:09 Potassium 3.8 mmol/L (3.5-5.1) 07/19/22 06:09 Chloride 101 mmol/L (98-107) 07/19/22 06:09 Carbon Dioxide 27 mmol/L (21-32) 07/19/22 06:09 Anion Gap 7 (3-11) 07/19/22 06:09 BUN 10 mg/dl (6-23) 07/19/22 06:09 Creatinine 0.67 mg/dl (0.6-1.2) 07/19/22 06:09 Est Cr Clr Drug Dosing 144.3 ml/min 07/19/22 06:09 Est GFR ( Amer) 134.8 ml/min 07/19/22 06:09 Est GFR (Non-Af Amer) 116.3 ml/min 07/19/22 06:09 BUN/Creatinine Ratio 14.9 (10-20) 07/19/22 06:09 Glucose 106 mg/dl (70-99(Fasting)) H 07/19/22 06:09 Calcium 8.5 mg/dl (8.5-10.1) 07/19/22 06:09 Phosphorus 2.9 mg/dl (2.5-4.9) 07/18/22 06:44 Magnesium 1.8 mg/dl (1.7-2.4) 07/18/22 06:44 Iron 43 mcg/dl (35-150) 07/17/22 16:23 Total Bilirubin 0.3 mg/dl (0.2-1.0) 07/18/22 06:44 AST 12 U/L (13-39) L 07/18/22 06:44 ALT 9 U/L (7-52) 07/18/22 06:44 Alkaline Phosphatase 72 U/L (34-104) 07/18/22 06:44 C-Reactive Protein 6.27 mg/dl (0-0.5) H 07/18/22 06:44 Total Protein 6.3 gm/dl (6.0-8.3) 07/18/22 06:44 Albumin 3.3 gm/dl (3.4-5.0) L 07/18/22 06:44 Globulin 3.0 gm/dl (2.5-4.0) 07/18/22 06:44 Albumin/Globulin Ratio 1.1 (0.9-2) 07/18/22 06:44 Lipase 20 U/L (11-82) 07/17/22 09:27 Vitamin B12 289 pg/ml (180-914) 07/17/22 09:27 Folate 6.08 ng/ml (>5.38) 07/17/22 09:27 HCG, Qual Negative (Negative) 07/17/22 09:27 Urine Color Yellow 07/17/22 12:04 Urine Appearance Cloudy (Clear) A 07/17/22 12:04 Urine pH 6.5 (4.5-7.5) 07/17/22 12:04 Ur Specific [place] 1.017 (1.000-1.030) 07/17/22 12:04 Urine Protein Negative (Negative) 07/17/22 12:04 Urine Glucose (UA) Negative (Negative) 07/17/22 12:04 Urine Ketones Negative (Negative) 07/17/22 12:04 Urine Blood 3+ (Negative) H 07/17/22 12:04 Urine Nitrite Negative (Negative) 07/17/22 12:04 Urine Bilirubin Negative (Negative) 07/17/22 12:04 Urine Urobilinogen Negative (Negative) 07/17/22 12:04 Ur Leukocyte Esterase 3+ (Negative) H 07/17/22 12:04 Urine WBC (Auto) >30 /hpf (0-5) H 07/17/22 12:04 Urine RBC (Auto) 5-10 /hpf (0-4) H 07/17/22 12:04 U Hyaline Cast (Auto) >30 /lpf (0-5) H 07/17/22 12:04 U Epithel Cells (Auto) >30 /lpf (0-5) H 07/17/22 12:04 Urine Bacteria (Auto) 1+ (Negative) H 07/17/22 12:04 Granular Casts 5-10 /lpf (0) H 07/17/22 12:04 Stl C. cayetanensis PCR Not Detected (NotDetected) 07/17/22 14:10 Stool Rotavirus A PCR Not Detected (NotDetected) 07/17/22 14:10 Stl Adenov F 40/41 PCR Not Detected (NotDetected) 07/17/22 14:10 Stool Astrovirus (PCR) Not Detected (NotDetected) 07/17/22 14:10 Stool Campylobacter PCR Not Detected (NotDetected) 07/17/22 14:10 Stl C. diff Tox A/B PCR Not Detected (NotDetected) 07/17/22 14:10 Stool Cryptosporidium PCR Not Detected (NotDetected) 07/17/22 14:10 Stl E.coli Shiga Tox PCR Not Detected (NotDetected) 07/17/22 14:10 Stl Enterotoxigenic E PCR Not Detected (NotDetected) 07/17/22 14:10 Stool EPEC (PCR) Not Detected (NotDetected) 07/17/22 14:10 Stool EAEC (PCR) Not Detected (NotDetected) 07/17/22 14:10 Stl E. histolytica PCR Not Detected (NotDetected) 07/17/22 14:10 Stool Giardia Lamblia PCR Not Detected (NotDetected) 07/17/22 14:10 Stool Salmonella PCR Not Detected (NotDetected) 07/17/22 14:10 Stool Sapovirus (PCR) Not Detected (NotDetected) 07/17/22 14:10 Stl P. shigelloides PCR Not Detected (NotDetected) 07/17/22 14:10 Stl Shigella/EIEC PCR Not Detected (NotDetected) 07/17/22 14:10 St Y.enterocolitica PCR Not Detected (NotDetected) 07/17/22 14:10 Stool Vibrio (PCR) Not Detected (NotDetected) 07/17/22 14:10 Stl Vibrio cholerae PCR Not Detected (NotDetected) 07/17/22 14:10 Stl Norovirus GI/GII PCR Not Detected (NotDetected) 07/17/22 14:10 SARS-CoV-2, RNA, NAAT NEGATIVE (NEGATIVE) 07/17/22 12:09 Impressions Abdomen/Pelvis CT 07/17/22 09:34 CT OF THE ABDOMEN AND PELVIS WITH CONTRAST CLINICAL HISTORY: Right-sided abdominal pain. COMPARISON STUDY: CT of the abdomen and pelvis and right upper quadrant ultrasound September 23, 2019 TECHNIQUE: Following IV administration of 94 mL of Optiray, axial images of the abdomen and pelvis were obtained from the lung bases to the proximal femurs. Images were reviewed in the axial, sagittal, and coronal planes. IV contrast was administered without complication. Automated exposure control was utilized for the study. A dose lowering technique was utilized adhering to the principles of ALARA. CT DOSE: 532.34 mGy.cm FINDINGS: Lung bases are unremarkable. No pneumatosis, free air or portal venous gas is present. The liver, spleen, adrenal glands, kidneys and pancreas are unremarkable. There is no hydronephrosis. There is no biliary or pancreatic ductal dilatation. The appendix is normal. A small amount of abdominal ascites is noted. There is mesenteric stranding. Multifocal small bowel wall thickening is noted. This results in mild dilated fluid-filled small bowel loops which measure up to 3.3 cm in caliber. Small bowel feces sign is noted. No pneumatosis, free air or portal venous gas is present. There is no abscess. Major vasculature is patent. Terminal ileum is within normal limits by CT. Intrauterine device is in place. Ovaries are not enlarged. IMPRESSION: 1. Multifocal small bowel wall thickening with associated ascites and mesenteric stranding. The bowel wall thickening results in a partial small bowel obstruction with transition points, as described above. Although nonspecific, an infectious or inflammatory enteritis is favored. Crohn's disease is within the differential. No abscess. No pneumatosis, free air or portal venous gas. Close clinical follow-up is recommended. Findings discussed with Dr. London at time of dictation. 2. Normal appendix. ACT 112: Negative or not required by law. Electronically signed by: Jose Emerson M.D. 07/17/2022 12:44 PM KUB X-Ray 07/20/22 07:00 KUB HISTORY: Acute generalized abdominal pain with small bowel junction Follow up on SBO COMPARISON: KUB 07/19/2022, CT 07/17/2022 FINDINGS: There is persistent gaseous distention of the small bowel which appears slightly improved. IUD of the mid pelvis. No renal calculi. No ureteral calculi. No pneumoperitoneum or pneumatosis. Mild dextroscoliosis of the lumbar spine redemonstrated. No fracture. IMPRESSION: Persistent distended loops of small bowel suggestive of small bowel obstruction, mildly improved from yesterday's exam. ACT 112: Negative or not required by law. The above report was generated using voice recognition software. It may contain grammatical, syntax or spelling errors. Electronically signed by: Kb Fitzgerald M.D. 07/20/2022 9:06 AM
[2022-07-20] MEDS: cefTRIAXone SODIUM 2,000 MG in DEXTROSE 5% 50 ML IV SCH (12:38)
[2022-07-20] MEDS: AMPHETAMINE ASP/SULF/DEXTRAMPH 20 MG TAB PO SCH (12:39)
[2022-07-20] MEDS: NIFEdipine EXTENDED REL 30 MG TABCR PO SCH (15:47)
[2022-07-20] MEDS: LURASIDONE HCL 40 MG TAB PO SCH (20:17)
[2022-07-20] MEDS: lamoTRIgine 100 MG TAB PO SCH (20:18)
[2022-07-21] MEDS: ONDANSETRON INJ 2 MG/ML 2 ML VIAL IV PRN ×2 (01:59→17:11)
[2022-07-21] MEDS: LACTATED RINGER'S 1,000 ML IV SCH ×2 (02:08→14:52)
[2022-07-21] MEDS: metroNIDAZOLE 500 MG/100 ML BAG IV SCH ×3 (03:19→20:30)
[2022-07-21] MEDS: ACETAMINOPHEN 1,000 MG/100 ML VIAL IV SCH ×3 (04:49→21:34)
[2022-07-21] MEDS: methylPREDNISolone 20 MG in SYRINGE 0 ML IV SCH ×3 (05:11→21:50)
[2022-07-21] MEDS: AMPHETAMINE ASP/SULF/DEXTRAMPH 10 MG TAB PO SCH ×2 (06:42→15:08)
[2022-07-21] MEDS: PANTOprazole 40 MG TAB PO SCH (07:30)
[2022-07-21] MEDS: NIFEdipine EXTENDED REL 30 MG TABCR PO SCH (08:24)
--- NOTE | 2022-07-21 08:59 | Gastroenterology Progress Note ---
Date of Service July 21, 2022 Assessment & Plan (1) Partial small bowel obstruction: (2) Abdominal pain: (3) Abnormal finding on GI tract imaging: Plan: Pt is a 32 yo female admitted w multifocal SBO, stool cx negative ? IBD. Plan - IVF support - Methylprednisolone 20mg Q8hrs - Avoid Narcotics, encourage ambulation, keep K >4 to promote peristalsis - Add Levsin 0.125mg BID prn abd pain - Review of KUB images showed bowel dilation. Given her persistent abd pain, n/v, KUB images, recommend NGT placement. Will also ask Surgery team to re- evaluate to consider surgical intervention - Avoid colonoscopy until bowels open up so we can administer bowel prep. Admission and Anticipated Discharge Date Admission Date: July 17, 2022 Supervising Physician Co-Signing Physician Notes Saw and evaluated the patient this morning. She reports having minimal im provement over the weekend despite continued IV coverage steroids. The patient is having flatus and no bowel movements present time. Given the findings on this morning x-ray I wonder if it would be prudent to obtain a general surgery addition to placement of the NG tube Recommendations Continue with IV hydration Continue with steroid use General surgery consultation Recommend placement of an NGT Subjective Pt reports not feeling well, passing flatus but no BM. Still having abd pain. Vomitted last night Review of Systems Review of Systems: All systems reviewed & are unremarkable except as noted in HPI & below Physical Exam Constitutional: WD/WN, vitals as above + ill appearing and cooperative Eyes: PERRL, conjunctivae normal, anicteric sclerae ENMT: external ear and nose normal, oropharynx normal Respiratory: normal respiratory effort, lungs clear to auscultation Cardiovascular: RRR, no murmur, no edema Gastrointestinal (Abdomen): Hypoactive BS in mid abd, + TTP generalized Skin: no rashes, warm and dry no jaundice Psychiatric: A+Ox3, euthymic affect Lymphatic: no lymphedema Results & Data ([facility]) Vital Signs (Past 12 Hours) Vital Signs Temp Pulse Resp BP Pulse Ox O2 Del Method 07/21/22 07:53 36.7 C 63 18 149/97 H 96 07/21/22 02:11 36.9 C 67 18 147/95 H 97 Room Air 07/21/22 00:13 37.5 C 78 20 143/102 H 96 Room Air
[2022-07-21] MEDS ORDERED: HYOSCYAMINE SULFATE 0.125 MG TAB SL PRN (09:02)
[2022-07-21] MEDS: MoRPHine SULFATE 2 MG/ML CARP IV PRN ×2 (09:10→20:10)
--- NOTE | 2022-07-21 09:21 | XRay Report ---
KUB HISTORY: Small bowel obstruction. Follow-up. COMPARISON: KUB 07/20/2022. Abdomen and pelvis CT 07/17/2022. FINDINGS: Interval improvement in the mildly dilated gas-filled loops of small bowel within the abdom en which now measure up to 3.6 cm in diameter. There is gas and stool seen throughout the nondistende d colon. Also mild thickening within the ascending colon versus stool. The intrauterine device is see n within the mid pelvis. No renal calculi. No ureteral calculi. Calcifications in the deep pelvis li kostas represent phleboliths. No pneumoperitoneum or pneumatosis. IMPRESSION: 1 Interval improvement in the mildly dilated gas-filled loops of small bowel within the abdomen sugge sting a resolving partial small bowel obstruction. 2. Possible thickening of the ascending colon. This may represent a mild colitis. ACT 112: Negative or not required by law. Electronically signed by: Chente Shine M.D. 07/21/2022 9:20 AM
--- NOTE | 2022-07-21 10:20 | Surgery Progress Note ---
Date of Service July 21, 2022 Assessment & Plan (1) Partial small bowel obstruction: Plan: Patient here with several days of abd pain, nausea/vomiting, diarrhea found to have enteritis, ?partial SBO, ?new IBD - We have been asked to re-evaluate patient given slow improvement. She is passing flatus, but no BM's and bout of emesis yest. - Today on interview pt is telling me she is feeling better overall than when she came in. Abd pain improved, but still mildly present along the R side. + flatus, no BM. Mild nausea - KUB today revealed improvement- suggesting a resolving partial small bowel obstruction, along with possible thickening of the ascending colon which may represent a mild colitis - She is currently on steroids per GI for concern of new IBD, plus IV abx. Stool cultures are negative. planning on o/p c-scope - On exam abdomen is soft, non distended, with mild discomfort elicited along the R side - We will order a CT a/p with po + IV contrast for further evaluation and will f/u on results - Given that pt is feeling better and KUB improving, can likely hold off on NGT for now unless worsening n/v returns - No plans for acute surgical intervention at this time Admission and Anticipated Discharge Date Admission Date: July 17, 2022 Supervising Physician Co-Signing Physician Notes Patient seen and examined, labs and imaging reviewed, agree with above. 32-year-old female admitted with enteritis with some concern for partial small bowel obstruction on initial CT scan. She has been passing flatus but has still had some nausea and an episode of emesis yesterday. She has not had a bowel movement for the past several days. She is currently on steroids and antibiotics. She states that she feels much better than she did when she was admitted. On exam she is afebrile with stable vitals. Abdomen soft, nondistended, nontender. KUB reviewed and there is still slightly distended bow el that this is improved. There is significant amount of air in the right colon. This is unlikely to be obstructive in nature. We will obtain a CT scan with oral and IV contrast to reassess. No surgical intervention planned at this time. Subjective Patient resting in bed. Says she is feeling okay. She tells me she is actually feeling better each day. She is passing flatus. Not much nausea this AM, but did vomit yesterday. No BM since around time of admission. Overall reports improvement in her symptoms. Physical Exam Physical Exam: awake/alert, no distress Gastrointestinal (Abdomen): Inspection/Auscultation: abdomen not distended Percussion/Palpation: + abdomen tender (mild discomfort along R side of abdomen ) and abdomen soft Results & Data ([facility]) Vital Signs (Past 12 Hours) Vital Signs Temp Pulse Resp BP Pulse Ox O2 Del Method 07/21/22 07:53 36.7 C 63 18 149/97 H 96 07/21/22 02:11 36.9 C 67 18 147/95 H 97 Room Air 07/21/22 00:13 37.5 C 78 20 143/102 H 96 Room Air PG Care Time/CCT Total # of Minutes Spent Total Time Spent with Patient: Total time spent is greater than 50% in coordination of care (as documented) at patient's floor/unit and/or counseling patient: Coding Level of Care Code 31660 Subseq Hosp Care Lvl 1 Diagnoses Partial small bowel obstruction K56.600
[2022-07-21] MEDS: cefTRIAXone SODIUM 2,000 MG in DEXTROSE 5% 50 ML IV SCH (11:14)
[2022-07-21] MEDS: AMPHETAMINE ASP/SULF/DEXTRAMPH 20 MG TAB PO SCH (11:49)
[2022-07-21 12:44] LABS: Basophils # (auto) 0.03 K/uL (0-0.2); Basophils % (auto) 0.2 %; Hematocrit (blood only) 40.9 % (34.1-44.9); Hemoglobin 14.1 g/dl (12.0-16.0); Immature Granulocytes # (auto) 0.24 K/uL (0.00-0.02); Immature Granulocytes % (auto) 1.6 %; Lymphocytes # (auto) 2.53 K/uL (1.2-3.4); Lymphocytes % (auto) 16.8 %; Mean Corpuscular Hemoglobin 26.8 pg (25.0-34.0); Mean Corpuscular Hgb Conc 34.5 g/dL (32.0-36.0); Mean Corpuscular Volume 77.6 fL (80.0-100.0); Mean Platelet Volume 9.3 fL (9.4-12.3); Monocytes # (auto) 1.69 K/uL (0.24-0.82); Monocytes % (auto) 11.2 %; Neutrophils # (auto) 10.58 K/uL (1.4-6.5); Neutrophils % (auto) 70.2 %; Platelet Count 442 K/uL (130-400); RDW Coefficient of Variation 15.4 % (11.5-14.5); RDW Standard Deviation 42.7 fL (36.4-46.3); Red Blood Count 5.27 M/uL (3.93-5.22); White Blood Count 15.07 K/ul (4.8-10.8)
[2022-07-21 13:09] LABS: BUN Creatinine Ratio 17.4 (10-20); Calcium 8.9 mg/dl (8.5-10.1); Creatinine Clr Calc Pharmacy 140.8 ml/min; Est GFR (African American) 133.5 ml/min; Est GFR (Non-African American) 115.2 ml/min
--- NOTE | 2022-07-21 14:41 | Hospitalist Progress Note ---
Date of Service July 21, 2022 Assessment & Plan (1) Abdominal pain: (2) Partial small bowel obstruction: (3) UTI (urinary tract infection): (4) ADHD: Plan 32 y/o female right sided abdominal pain x 4 days. + nausea, vomiting, and liquid diarrhea without hematochezia. +fevers and chills at home; afebrile here. ESR and CRP pending. Abdominal CT: Multifocal small bowel wall thickening with associated ascites and mesenteric stranding, suggestive of partial small bowel obstruction. Possible infectious or inflammatory enteritis is favored. Crohn's disease is within the differential. No abscess. No pneumatosis, free air or portal venous gas. + tender without signs of peritonitis on exam. No leukocytosis. Negative screen/hcg. Patient is admitted to the telemetry floor for further treatment. Abdominal pain Partial SBO: Nausea and vomiting: Likely IBD -Presented with abdominal pain, nausea and vomiting for 4 days prior to admission. -Afebrile, normotensive and saturating well in room air. -Leukocytosis present today; likely secondary to steroids. -ESR88, CRP6.27 -Urinalysis showed 3+ blood with 3+ leukocyte esterase and bacteria. -Stool bio fire negative -Abdominal CT results: Multifocal small bowel wall thickening with associated ascites and mesenteric stranding. Suggestive of partial SBO. No abscess. No pneumatosis, free air or portal venous gas. Follow-up KUB today shows improvement in small bowel obstruction. Plan; --Patient's abdominal discomfort has improved compared to yesterday. Her nausea/vomiting has also improved. GI and surgery recommendation appreciated. Patient to undergo CT abdomen with IV and oral contrast as per surgery's recommendation. Further management depends on CT abdomen findings. Continue supportive care with IV fluids with LR. Currently on ciprofloxacin and Flagyl for now. On IV steroids as per GI recommendation. UTI: -3+ Leukocyte Esterase on UA -Hcg neg. LMP started 07/15 -Urine culture shows E. coli which is resistant to ciprofloxacin. On ceftriaxone ADHD: Continue Adderall 10 mg Q AM 10 mg Q PM Continue Latuda GERD: Continue Omeprazole Disposition: PCP: Dr. Zaragoza VTE Prophlyaxis: Heparin Code: Full code Admission and Anticipated Discharge Date Admission Date: July 17, 2022 Subjective Patient seen and examined at bedside. She reports that her abdominal pain is better compared to presentation. Her vomiting episode has decreased as well; she had 1 episode of vomiting yesterday. She is tolerating full liquid diet well. Review of Systems Review of Systems: All systems reviewed & are unremarkable except as noted in Subjective Physical Exam Physical Exam: Constitutional: Alert orient x3. significant distress due to abdominal pain. Respiratory: normal respiratory effort, lungs clear to auscultation, no wheeze, rales, rhonchi. Normal insp/exp effort, no accessory muscle use Cardiovascular: RRR, no murmur, no edema Vessels: no JVD or carotid bruit Chest: normal inspection of chest Abdomen: Soft, slightly tender in epigastric region; improved from yesterday. Musculoskeletal: no cyanosis or clubbing, extremities motor strength 5/5 Skin: no rashes, warm and dry normal turgor Neurologic: PERRL, EOMI, accommodation nl, no face palsy, no dysarthria CN's II- XI intact bilaterally and moves all extremities Psychiatric: A+Ox3, euthymic affect Lymphatic: no cervical or axillary lymphadenopathy : deferred Results & Data Results & Data ([facility]) Vital Signs (Past 12 Hours) Vital Signs Temp Pulse Pulse Resp BP Pulse Ox O2 Del Method 07/21/22 11:33 37.1 C 97 H 20 123/75 98 Room Air 07/21/22 10:39 62 07/21/22 08:30 Room Air 07/21/22 07:53 36.7 C 63 18 149/97 H 96 Laboratory Results Laboratory Results WBC 15.07 K/ul (4.8-10.8) H 07/21/22 12:34 RBC 5.27 M/uL (3.93-5.22) H 07/21/22 12:34 Hgb 14.1 g/dl (12.0-16.0) 07/21/22 12:34 Hct 40.9 % (34.1-44.9) 07/21/22 12:34 MCV 77.6 fL (80.0-100.0) L 07/21/22 12:34 MCH 26.8 pg (25.0-34.0) 07/21/22 12:34 MCHC 34.5 g/dL (32.0-36.0) 07/21/22 12:34 RDW Std Deviation 42.7 fL (36.4-46.3) 07/21/22 12:34 RDW Coeff of Dax 15.4 % (11.5-14.5) H 07/21/22 12:34 Plt Count 442 K/uL (130-400) H 07/21/22 12:34 MPV 9.3 fL (9.4-12.3) L 07/21/22 12:34 Immature Gran % (Auto) 1.6 % 07/21/22 12:34 Neut % (Auto) 70.2 % 07/21/22 12:34 Lymph % (Auto) 16.8 % 07/21/22 12:34 [place] % (Auto) 11.2 % 07/21/22 12:34 Eos % (Auto) 0.0 % 07/21/22 12:34 Baso % (Auto) 0.2 % 07/21/22 12:34 Neut # (Auto) 10.58 K/uL (1.4-6.5) H 07/21/22 12:34 Lymph # (Auto) 2.53 K/uL (1.2-3.4) 07/21/22 12:34 [place] # (Auto) 1.69 K/uL (0.24-0.82) H 07/21/22 12:34 Eos # (Auto) 0.00 K/uL (0-0.50) 07/21/22 12:34 Baso # (Auto) 0.03 K/uL (0-0.2) 07/21/22 12:34 Immature Gran # (Auto) 0.24 K/uL (0.00-0.02) H 07/21/22 12:34 ESR 88 mm/hr (0-20) H 07/18/22 06:44 Sodium 133 mmol/L (136-145) L 07/21/22 12:34 Potassium 4.0 mmol/L (3.5-5.1) 07/21/22 12:34 Chloride 98 mmol/L (98-107) 07/21/22 12:34 Carbon Dioxide 26 mmol/L (21-32) 07/21/22 12:34 Anion Gap 9 (3-11) 07/21/22 12:34 BUN 12 mg/dl (6-23) 07/21/22 12:34 Creatinine 0.69 mg/dl (0.6-1.2) 07/21/22 12:34 Est Cr Clr Drug Dosing 140.8 ml/min 07/21/22 12:34 Est GFR ( Amer) 133.5 ml/min 07/21/22 12:34 Est GFR (Non-Af Amer) 115.2 ml/min 07/21/22 12:34 BUN/Creatinine Ratio 17.4 (10-20) 07/21/22 12:34 Glucose 114 mg/dl (70-99(Fasting)) H 07/21/22 12:34 Calcium 8.9 mg/dl (8.5-10.1) 07/21/22 12:34 Phosphorus 2.9 mg/dl (2.5-4.9) 07/18/22 06:44 Magnesium 1.8 mg/dl (1.7-2.4) 07/18/22 06:44 Iron 43 mcg/dl (35-150) 07/17/22 16:23 Total Bilirubin 0.3 mg/dl (0.2-1.0) 07/18/22 06:44 AST 12 U/L (13-39) L 07/18/22 06:44 ALT 9 U/L (7-52) 07/18/22 06:44 Alkaline Phosphatase 72 U/L (34-104) 07/18/22 06:44 C-Reactive Protein 6.27 mg/dl (0-0.5) H 07/18/22 06:44 Total Protein 6.3 gm/dl (6.0-8.3) 07/18/22 06:44 Albumin 3.3 gm/dl (3.4-5.0) L 07/18/22 06:44 Globulin 3.0 gm/dl (2.5-4.0) 07/18/22 06:44 Albumin/Globulin Ratio 1.1 (0.9-2) 07/18/22 06:44 Lipase 20 U/L (11-82) 07/17/22 09:27 Vitamin B12 289 pg/ml (180-914) 07/17/22 09:27 Folate 6.08 ng/ml (>5.38) 07/17/22 09:27 HCG, Qual Negative (Negative) 07/17/22 09:27 Urine Color Yellow 07/17/22 12:04 Urine Appearance Cloudy (Clear) A 07/17/22 12:04 Urine pH 6.5 (4.5-7.5) 07/17/22 12:04 Ur Specific [place] 1.017 (1.000-1.030) 07/17/22 12:04 Urine Protein Negative (Negative) 07/17/22 12:04 Urine Glucose (UA) Negative (Negative) 07/17/22 12:04 Urine Ketones Negative (Negative) 07/17/22 12:04 Urine Blood 3+ (Negative) H 07/17/22 12:04 Urine Nitrite Negative (Negative) 07/17/22 12:04 Urine Bilirubin Negative (Negative) 07/17/22 12:04 Urine Urobilinogen Negative (Negative) 07/17/22 12:04 Ur Leukocyte Esterase 3+ (Negative) H 07/17/22 12:04 Urine WBC (Auto) >30 /hpf (0-5) H 07/17/22 12:04 Urine RBC (Auto) 5-10 /hpf (0-4) H 07/17/22 12:04 U Hyaline Cast (Auto) >30 /lpf (0-5) H 07/17/22 12:04 U Epithel Cells (Auto) >30 /lpf (0-5) H 07/17/22 12:04 Urine Bacteria (Auto) 1+ (Negative) H 07/17/22 12:04 Granular Casts 5-10 /lpf (0) H 07/17/22 12:04 Stl C. cayetanensis PCR Not Detected (NotDetected) 07/17/22 14:10 Stool Rotavirus A PCR Not Detected (NotDetected) 07/17/22 14:10 Stl Adenov F 40/41 PCR Not Detected (NotDetected) 07/17/22 14:10 Stool Astrovirus (PCR) Not Detected (NotDetected) 07/17/22 14:10 Stool Campylobacter PCR Not Detected (NotDetected) 07/17/22 14:10 Stl C. diff Tox A/B PCR Not Detected (NotDetected) 07/17/22 14:10 Stool Cryptosporidium PCR Not Detected (NotDetected) 07/17/22 14:10 Stl E.coli Shiga Tox PCR Not Detected (NotDetected) 07/17/22 14:10 Stl Enterotoxigenic E PCR Not Detected (NotDetected) 07/17/22 14:10 Stool EPEC (PCR) Not Detected (NotDetected) 07/17/22 14:10 Stool EAEC (PCR) Not Detected (NotDetected) 07/17/22 14:10 Stl E. histolytica PCR Not Detected (NotDetected) 07/17/22 14:10 Stool Giardia Lamblia PCR Not Detected (NotDetected) 07/17/22 14:10 Stool Salmonella PCR Not Detected (NotDetected) 07/17/22 14:10 Stool Sapovirus (PCR) Not Detected (NotDetected) 07/17/22 14:10 Stl P. shigelloides PCR Not Detected (NotDetected) 07/17/22 14:10 Stl Shigella/EIEC PCR Not Detected (NotDetected) 07/17/22 14:10 St Y.enterocolitica PCR Not Detected (NotDetected) 07/17/22 14:10 Stool Vibrio (PCR) Not Detected (NotDetected) 07/17/22 14:10 Stl Vibrio cholerae PCR Not Detected (NotDetected) 07/17/22 14:10 Stl Norovirus GI/GII PCR Not Detected (NotDetected) 07/17/22 14:10 SARS-CoV-2, RNA, NAAT NEGATIVE (NEGATIVE) 07/17/22 12:09 Impressions Abdomen/Pelvis CT 07/17/22 09:34 CT OF THE ABDOMEN AND PELVIS WITH CONTRAST CLINICAL HISTORY: Right-sided abdominal pain. COMPARISON STUDY: CT of the abdomen and pelvis and right upper quadrant ultrasound September 23, 2019 TECHNIQUE: Following IV administration of 94 mL of Optiray, axial images of the abdomen and pelvis were obtained from the lung bases to the proximal femurs. Images were reviewed in the axial, sagittal, and coronal planes. IV contrast was administered without complication. Automated exposure control was utilized for the study. A dose lowering technique was utilized adhering to the principles of ALARA. CT DOSE: 532.34 mGy.cm FINDINGS: Lung bases are unremarkable. No pneumatosis, free air or portal venous gas is present. The liver, spleen, adrenal glands, kidneys and pancreas are unremarkable. There is no hydronephrosis. There is no biliary or pancreatic ductal dilatation. The appendix is normal. A small amount of abdominal ascites is noted. There is mesenteric stranding. Multifocal small bowel wall thickening is noted. This results in mild dilated fluid-filled small bowel loops which measure up to 3.3 cm in caliber. Small bowel feces sign is noted. No pneumatosis, free air or portal venous gas is present. There is no abscess. Major vasculature is patent. Terminal ileum is within normal limits by CT. Intrauterine device is in place. Ovaries are not enlarged. IMPRESSION: 1. Multifocal small bowel wall thickening with associated ascites and mesenteric stranding. The bowel wall thickening results in a partial small bowel obstruction with transition points, as described above. Although nonspecific, an infectious or inflammatory enteritis is favored. Crohn's disease is within the differential. No abscess. No pneumatosis, free air or portal venous gas. Close clinical follow-up is recommended. Findings discussed with Dr. London at time of dictation. 2. Normal appendix. ACT 112: Negative or not required by law. Electronically signed by: Jose Emerson M.D. 07/17/2022 12:44 PM KUB X-Ray 07/21/22 07:00 KUB HISTORY: Small bowel obstruction. Follow-up. COMPARISON: KUB 07/20/2022. Abdomen and pelvis CT 07/17/2022. FINDINGS: Interval improvement in the mildly dilated gas-filled loops of small bowel within the abdomen which now measure up to 3.6 cm in diameter. There is gas and stool seen throughout the nondistended colon. Also mild thickening within the ascending colon versus stool. The intrauterine device is seen within the mid pelvis. No renal calculi. No ureteral calculi. Calcifications in the deep pelvis likely represent phleboliths. No pneumoperitoneum or pneumatosis. IMPRESSION: 1 Interval improvement in the mildly dilated gas-filled loops of small bowel within the abdomen suggesting a resolving partial small bowel obstruction. 2. Possible thickening of the ascending colon. This may represent a mild colitis. ACT 112: Negative or not required by law. Electronically signed by: Chente Shine M.D. 07/21/2022 9:20 AM
[2022-07-21] MEDS ORDERED: OPTIRAY 350 100ml IV ONE (15:15)
--- NOTE | 2022-07-21 15:41 | CT Scan Report ---
CT SCAN OF THE ABDOMEN AND PELVIS WITH IV CONTRAST CLINICAL HISTORY: Generalized abdominal pain. COMPARISON STUDY: Abdominal CT dated 07/17/2002. TECHNIQUE: Following the IV administration of 87 cc of Optiray 350, CT scan of the abdomen and pelvi s is performed from the lung bases to the proximal femora. Images are reviewed in the axial, sagittal , and coronal planes. IV contrast was administered without complication. Oral contrast was utilized. A dose lowering technique was utilized adhering to the principles of ALARA. CT DOSE: 487.50 mGy.cm FINDINGS: Lung bases: The heart is normal in size and without pericardial effusion. The lung bases are clear. B ilateral breast implants are partially imaged. Liver: The contrast-enhanced liver is normal in size, contour, and attenuation. Fatty infiltration is seen adjacent to the falciform ligament. There is no intrahepatic biliary ductal dilatation. The hep atic veins and portal veins are patent. Gallbladder: Unremarkable. Spleen: Normal in size and attenuation. Pancreas: Unremarkable. Adrenal glands: Unremarkable. Kidneys: The contrast enhanced kidneys are normal in size and without hydronephrosis. The kidneys enh ance symmetrically. Abdominal vasculature: The abdominal aorta is normal in course and caliber. Bowel: There is no bowel obstruction. Enteric contrast reaches the cecum. Wall thickening involving l oops of small bowel seen on 07/17/2022 has significantly improved. The appendix is well-visualized a nd normal. Peritoneum: No intraperitoneal free air is seen. There is trace interloop fluid. Mesenteric infiltrat ion has improved from previous. Lymphadenopathy: None. Pelvic viscera: The bladder, uterus, and adnexa are normal as visualized noting an intrauterine devic e in place. There are bilateral ovarian follicles. Trace free fluid is noted in the cul-de-sac. Skeletal structures: No lytic or blastic lesions are seen. Mild sclerotic change is noted in the sacr oiliac joints. IMPRESSION: 1. There is no bowel obstruction. Enteric contrast reaches the cecum. 2. Small bowel wall thickening/inflammation seen on 07/17/2022 has significantly improved. Mesenteric infiltration has also improved from previous. This likely represents a resolving enteritis. 3. Trace free fluid in cul-de-sac is nonspecific and likely within physiologic limits. 4. Additional findings as above. ACT 112: Negative or not required by law. Electronically signed by: Oscar Soliman M.D. 07/21/2022 3:39 PM
[2022-07-21] MEDS: ALPRAZolam 0.5 MG TABLET PO PRN (19:40)
[2022-07-21] MEDS: PROMETHAZINE HCL 25 MG in SODIUM CHLORIDE 0.9% 50 ML IV PRN (20:11)
[2022-07-21] MEDS: LURASIDONE HCL 40 MG TAB PO SCH (21:53)
[2022-07-21] MEDS: lamoTRIgine 100 MG TAB PO SCH (21:53)
[2022-07-21] MEDS ORDERED: cloNIDine HCL 0.1 MG TAB PO ONE (23:46)
[2022-07-22] MEDS: metroNIDAZOLE 500 MG/100 ML BAG IV SCH (03:57)
[2022-07-22] MEDS: ACETAMINOPHEN 1,000 MG/100 ML VIAL IV SCH (05:07)
[2022-07-22] MEDS: methylPREDNISolone 20 MG in SYRINGE 0 ML IV SCH (05:30)
[2022-07-22] MEDS: PANTOprazole 40 MG TAB PO SCH (06:15)
[2022-07-22] MEDS: AMPHETAMINE ASP/SULF/DEXTRAMPH 10 MG TAB PO SCH (06:16)
[2022-07-22 06:28] LABS: Basophils # (auto) 0.03 K/uL (0-0.2); Basophils % (auto) 0.2 %; Eosinophils # (auto) 0.01 K/uL (0-0.50); Eosinophils % (auto) 0.1 %; Hematocrit (blood only) 43.1 % (34.1-44.9); Hemoglobin 14.5 g/dl (12.0-16.0); Immature Granulocytes # (auto) 0.17 K/uL (0.00-0.02); Immature Granulocytes % (auto) 1.1 %; Lymphocytes # (auto) 3.66 K/uL (1.2-3.4); Mean Corpuscular Hemoglobin 26.6 pg (25.0-34.0); Mean Corpuscular Hgb Conc 33.6 g/dL (32.0-36.0); Mean Corpuscular Volume 79.1 fL (80.0-100.0); Mean Platelet Volume 9.2 fL (9.4-12.3); Monocytes # (auto) 1.67 K/uL (0.24-0.82); Monocytes % (auto) 10.5 %; Neutrophils # (auto) 10.38 K/uL (1.4-6.5); Neutrophils % (auto) 65.1 %; Platelet Count 495 K/uL (130-400); RDW Coefficient of Variation 15.6 % (11.5-14.5); RDW Standard Deviation 43.8 fL (36.4-46.3); Red Blood Count 5.45 M/uL (3.93-5.22); White Blood Count 15.92 K/ul (4.8-10.8)
[2022-07-22 06:52] LABS: BUN Creatinine Ratio 20.3 (10-20); Calcium 9.1 mg/dl (8.5-10.1); Creatinine Clr Calc Pharmacy 140.5 ml/min; Est GFR (African American) 133.5 ml/min; Est GFR (Non-African American) 115.2 ml/min; Potassium 4.2 mmol/L (3.5-5.1)
--- NOTE | 2022-07-22 08:43 | Gastroenterology Progress Note ---
Date of Service July 22, 2022 Assessment & Plan (1) Partial small bowel obstruction: (2) Abdominal pain: (3) Abnormal finding on GI tract imaging: Plan: Pt is a 32 yo female admitted w multifocal SBO, stool cx negative ? IBD. She is clinically improved - passing flatus though no BM. Is tolerating solid meals wo n/v. Plan - No contraindication for DC home today - In light of suspected IBD, and use of IV steroids in hospital, will taper steroids upon DC: Prednisone 40mg daily x 1 week, 30mg daily x 1 week, 20mg daily x 1 week, 10mg daily x 1 week, 5mg daily x 1 week - Will arrange OP colonoscopy and GI clinic f/u. Admission and Anticipated Discharge Date Admission Date: July 17, 2022 Supervising Physician Co-Signing Physician Notes I saw evaluated the patient, she notes she is feeling much improved today and is requesting discharge to home. We are recommending that she can transition to oral steroids as above and undergo a pulm upper endoscopy and colonoscopy in the next 1 to 2 weeks. Subjective Pt reports she is passing flatus but no BM. Denies any abd pain, n/v. Advanced to solid meals last night and tolerated it well. She asks to be DC'd home today Review of Systems Review of Systems: All systems reviewed & are unremarkable except as noted in HPI & below Physical Exam Constitutional: WD/WN, vitals as above well developed, well nourished, cooperative and comfortable Eyes: PERRL, conjunctivae normal, anicteric sclerae ENMT: external ear and nose normal, oropharynx normal Respiratory: normal respiratory effort, lungs clear to auscultation Cardiovascular: RRR, no murmur, no edema Gastrointestinal (Abdomen): normal bowel sounds, soft, nontender, no hepatosplenomegaly Skin: no rashes, warm and dry no jaundice Psychiatric: A+Ox3, euthymic affect Lymphatic: no lymphedema Results & Data ([facility]) Vital Signs (Past 12 Hours) Vital Signs Temp Pulse Pulse Resp BP Pulse Ox O2 Del Method 07/22/22 08:03 36.9 C 104 H 20 113/74 97 Room Air 07/22/22 07:15 139 H 07/22/22 04:00 37.0 C 108 H 18 118/84 95 Room Air 07/21/22 22:15 80 07/21/22 23:39 36.9 C 112 H 16 152/107 H 97 Room Air
[2022-07-22] MEDS: NIFEdipine EXTENDED REL 30 MG TABCR PO SCH (09:09)
--- NOTE | 2022-07-22 17:17 | Discharge Summary ---
Date of Service July 22, 2022 Admission HPI Per Admitting Provider Ms. Ramos is a 32 y/o female that presented with her mother Terrie as she was experiencing right sided abdominal pain that has been occurring for the past 4 days. She was experiencing nausea, vomiting, and liquid diarrhea without hematochezia. She reports having fevers and chills at home; but is afebrile here. She has a PMH that includes: GERD, bipolar disorder, ADHD, and anxiety. On initial labs, her LFTs are ok; Bili 0.5. ESR and CRP pending. An abdominal CT was obtained and results indicate: Multifocal small bowel wall thickening with associated ascites and mesenteric stranding. The bowel wall thickening results in a partial small bowel obstruction with transition points, as described above. Although nonspecific, an infectious or inflammatory enteritis is favored. Crohn's disease is within the differential. No abscess. No pneumatosis, free air or portal venous gas. She is tender without signs of peritonitis on exam. No leukocytosis. Negative screen/hcg. Empirically treating for a UTI. She reports that the last time she ate solid food was yesterday. A stool culture has been obtained and sent. Currently, Morphine is controlling her pain well. GI Consult placed. Patient will be admitted for further evaluation and management. Please see A/P for further details. Admission Exam Per Admitting Provider Neuro: AAOx4, groggy from pain meds PERRLA, no aphagia, memory changes, CNII-XII grossly intact HEENT: head normocephalic, moist mucus membranes CV: S1/S2, (-) M/G/R, (-) edema, cap refill < 3 seconds Resp: Lungs CTA in all mckeon. On RA GI: Abdomen tender, Ax4 bowel sounds, (-) CVA tenderness Musculoskeletal: 5/5 B/L UE strength, 5/5 B/L LE strength. No gait disturbance Skin: (-) rashes , (-) erythema. Psych: euthymic mood Principal Diagnosis Abdominal pain Partial SBO: Likely IBD Discharge Exam Constitutional: Alert orient x3. significant distress due to abdominal pain. Respiratory: normal respiratory effort, lungs clear to auscultation, no wheeze, rales, rhonchi. Normal insp/exp effort, no accessory muscle use Cardiovascular: RRR, no murmur, no edema Vessels: no JVD or carotid bruit Chest: normal inspection of chest Abdomen: Soft, slightly tender in epigastric region; improved from yesterday. Musculoskeletal: no cyanosis or clubbing, extremities motor strength 5/5 Skin: no rashes, warm and dry normal turgor Neurologic: PERRL, EOMI, accommodation nl, no face palsy, no dysarthria CN's II- XI intact bilaterally and moves all extremities Psychiatric: A+Ox3, euthymic affect Lymphatic: no cervical or axillary lymphadenopathy : deferred Discharge Data Allergies Allergy/AdvReac Type Severity Reaction Status Date / Time almotriptan AdvReac Severe TIGHTNESS Verified 07/17/22 12:19 IN JAW, CAN'T BREATHE gabapentin AdvReac Severe TIGHTNESS Verified 07/17/22 12:19 IN JAW, CAN'T BREATHE sumatriptan AdvReac Severe TIGHTNESS Verified 07/17/22 12:19 IN JAW, CAN'T BREATHE Consultations 07/17/22 13:02 ED Decision to Admit Stat 07/17/22 13:07 Consult Gastroenterology Routine 07/17/22 14:55 Consult General Surgery Routine Ordered Studies 07/17/22 09:34 CT abd pelvis IV con only Stat 07/21/22 CT Abd and Pelvis [CT abd pelvis oral and IV con] Routine Hospital Course (1) Abdominal pain: (2) Partial small bowel obstruction: (3) UTI (urinary tract infection): (4) ADHD: Plan 32 y/o female right sided abdominal pain x 4 days. + nausea, vomiting, and liquid diarrhea , +fevers and chills at home Abdominal CT on admission showed Multifocal small bowel wall thickening with associated ascites and mesenteric stranding, suggestive of partial small bowel obstruction. Patient was admitted to telemetry for further management of small bowel obstruction likely secondary to infectious versus inflammatory bowel disease. Stool culture and PCR was done which was negative. GI was consulted; recommended starting IV steroid for possible inflammatory bowel disease. Her CRP and ESR were also elevated. Patient was managed conservatively with IV fluid, bowel rest antiemetic and pain control. A repeat CT scan showed improvement in the small bowel obstruction and inflammation process. Patient clinically improved with decreased episode of nausea, vomiting and resolution of abdominal pain. She was discharged on a tapering dose of prednisone, mesalamine and has outpatient colonoscopy planned with GI. She was also treated for infectious enteritis with ceftriaxone and Flagyl for total of 5 days. Her urine culture was positive for E. coli which was sensitive to ceftriaxone. Her blood pressure was found to be elevated throughout the hospitalization. Review of past blood pressure also revealed it to be on the higher side. She was started on nifedipine 30 mg once daily. She was asked to continue home blood pressure monitoring and follow-up with her primary care doctor. Total Time Total Time Spent Total Time Spent (In Minutes): 35 Total Time Includes: Examination of the Patient, Discharge Planning, Medication Reconciliation, Communication With Other Providers and Other Discharge Plan Discharge Items Patient Disposition: Home - Self-Care Reason For Visit: ABDOMINAL PAIN Discharge Diagnosis: Small bowel obstruction likely secondary to inflammatory bowel disease Activity: Resume your previous activity Non-emergency contact: Primary Care Provider Call non-emergency contact if: you have any medication questions and your symptoms worsen Follow-up/Referrals: Araseli Zaragoza DO [Primary Care Provider] - (Date & Time 07/24/2022 11:00 AM Provider Araseli Zaragoza DO Department [facility] ) Diet: Low Fiber Addtl Attending Provider Instructions: You were admitted to the hospital with a small bowel obstruction likely secondar y to inflammatory bowel disease Please follow the following instructions: 1) Eat low fiber food; eating small meals at frequent intervals. Watch out for any signs and symptoms of abdominal pain, nausea or vomiting. 2) you were restarted on steroids taper. Take 40 mg once a day for 7 days---> take 30 mg once a day for 7 days---> take 20 mg once a day for 7 day---> take 10 mg once a day for 7 days---> take 5 mg once a day for 7 days and stop 3) you are also started on mesalamine tablet 4.8 g once daily for inflammatory bowel disease. 4) you will have follow-up with a GI doctor for colonoscopy. Your blood pressure was found to be on the higher side while you were in the hospital. Please measure your blood pressure daily at home. You were started on nifedipine 30 mg once a day. Please follow-up with your primary care doctor with home blood pressure reading. Pending Studies at Discharge: No Stand-Alone Forms: My [employer], Smoking Cessation Medications and DC Order Prescriptions: New nifedipine [Procardia XL] 30 mg Tablet Extended Release 24hr 30 mg PO QAM Qty: 30 0RF mesalamine [Lialda] 1.2 gram tablet,delayed release (DR/EC) 4.8 g PO DAILY 56 Days Qty: 224 0RF prednisone 10 mg tablet See Taper PO DAILY Qty: 74 0RF Taper: Taper, Blank 40 mg DAILY for 7 Days 30 mg DAILY for 7 Days 20 mg DAILY for 7 Days 10 mg DAILY for 7 Days 5 mg DAILY for 7 Days Continued omeprazole 40 mg capsule,delayed release(DR/EC) 40 mg PO QAM Rx Instructions: TAKE THIS MEDICATION ONCE DAILY ONE HOUR BEFORE FIRST MEAL OF THE DAY dextroamphetamine-amphetamine 30 mg tablet 30 mg PO QAM alprazolam 1 mg tablet 1 mg PO HS PRN (Reason: Anxiety) lamotrigine 150 mg tablet 150 mg PO HS dextroamphetamine-amphetamine 10 mg tablet 10 mg PO .DAILY @ 1600 dextroamphetamine-amphetamine 20 mg tablet 20 mg PO .DAILY @ 1200 Latuda 20 mg tablet 20 mg PO QPM Discharge Orders: Discharge Order (Routine); Ordered 07/22/22 Ordered By: Jonh Bajwa Admission Data Admit Date/Time: 07/17/22 13:07 Attending Provider: Jonh Bajwa Admit Provider: Devin Melo Primary Care Provider: Araseli Zaragoza Other Providers: Tarah Lamar ; Sai Lux ; Devin Melo Other Interventions: Discharge Summary Assessment (RN) Last Done: 07/22/22 11:10
== END 2022-07-22 11:37 | disposition home or self-care (01) | DRG 389 ==
LOC: ED 09:02 → 2N 13:07 → SUATTDRO 13:07 → 2N 18:30
DX: R19.7 Diarrhea, unspecified; K56.600 Partial intestinal obstruction, unspecified as to cause; F17.210 Nicotine dependence, cigarettes, uncomplicated; R18.8 Other ascites; N39.0 Urinary tract infection, site not specified; B96.20 Unspecified Escherichia coli [E. coli] as the cause of diseases classified elsewhere; F31.9 Bipolar disorder, unspecified; Z88.8 Allergy status to other drugs, medicaments and biological substances; K52.3 Indeterminate colitis; F90.9 Attention-deficit hyperactivity disorder, unspecified type

== ENCOUNTER 2023-05-04 09:59 | Inpatient (IN) ==
--- NOTE | 2023-05-04 11:12 | Emergency Department Note ---
Impression & Plan Intentional overdose, Suicidal ideation, Contusion of knee, right, Abrasion of toe ED Provider Note INFORMANT: Patient, therapist, EMS ED PROVIDER(S): Terrell Wright MD CHIEF COMPLAINT: Overdose PLAN: Disposition: Still patient Condition: Good Outpatient prescription management: None Referral: None MEDICAL DECISION MAKING: Patient presented because of an overdose. Patient admitted to suicidal intent. The patient underwent a work-up. Consultation was made with poison control. They recommended monitoring for 6 hours. Also recommended repeat ECG. The patient had no issues on cardiac monitoring. Patient was able to sleep comfortably. Repeat ECG did not reveal any problems. Patient had normal magnesium and potassium but they were in the lower normal range. Poison control recommended additional IV magnesium and potassium. This was given. Continue monitoring revealed no problems. Patient was awake and alert on reassessment. She was adamant that she did not want to cooperate with coming into the hospital despite admitting to a suicidal intent. By overdose. At that point ED psychiatric case packer and sealer and I did inform her that she would be a 302 comm itment. She would not cooperate with voluntary admission. Delegate was contacted and 302 warrant was sent to the emergency department. 302 warrant was signed by me. Patient's daily medications were ordered except for her doxepin and Xanax. Bed search initiated. Patient did request a nicotine patch and 1 was ordered. Case was signed out to Dr. Brunner at the change of shift as bed search is underway. Patient's Tylenol, salicylate, and ethanol levels negative. Urine drug screen was abnormal. UA shows no signs of infection. CBC unremarkable. Discussed with ED psychiatric case packer and sealer. Discussed with the patient's therapist who was present in the emergency department. After review of the information above and other included data, I feel the patient requires admission. Triage Nursing notes reviewed and agree them. Vital Signs: reviewed and remarkable for mild hypertension Prior /Outside records reviewed: none Differential diagnosis: Overdose, toxicologic, infection, hypoglycemia, electrolyte abnormalities, cardiac sources, intracerebral event, neurologic, trauma, as well as other pathologies. Diagnostics, as interpreted by me: ECG: Twelve-lead ECG reveals a normal sinus rhythm at 89 bpm. Mildly prolonged QTc interval of 491. No ST elevation or depression. No PACs or PVCs. Twelve-lead ECG #2 reveals a normal sinus rhythm at 88 bpm. Normal QRS and QTc. No ST elevation or depression. No PACs or PVCs. Cardiac Monitoring: Cardiac monitoring ordered by me: The patient was placed on continuous cardiac monitoring and observed. It revealed a normal sinus rhythm at 90 beats per minute without ectopy or evidence of dysrhythmia. Medical decision rules: none Imaging studies: X-ray imaging of the right knee and right toe were performed and negative for fracture or dislocation. HPI: The patient is a 33year old female with a history of bipolar and methamphetamine addiction who presents to the Emergency Room with complaints of an overdose. This started between last night and this morning and is reportedly around 30 Xanax and 1 doxepin. Patient denies any other ingestions. Denies alcohol. Patient stated her intention was to kill herself and that the only way that her kids are safe is if "I am ". The patient also notes the following associated symptoms, right knee and great toe pain. Patient will not answer how the pain started but does note bruising to the right knee and abrasion to the right toe. EMS was summoned due to the patient's abnormal behavior. The pat ient has been given no medication for relieving factors. Patient cannot quantify pain. History is somewhat limited due to the patient's willingness to cooperate and her mental status pt denies LOC, headache, fevers, chills, neck pain, chest pain, breathing difficulties, vomiting, abdominal pain, back pain, urinary symptoms, or other complaints. PAST MEDICAL HISTORY: See Below, bipolar, breast abscess, methamphetamine abuse PAST SURGICAL HISTORY: See Below, SOCIAL HISTORY: See Below, smoker HOME MEDICATIONS: See Below ALLERGIES: See Below VITALS: See Below PHYSICAL EXAMINATION: GENERAL: Awake, intoxicated-appearing, in no distress HENT: Normocephalic, atraumatic. Oropharynx unremarkable. EYES: Normal conjunctiva. Sclera non-icteric. NECK: Inspection normal. Non-tender. Supple. No nuchal rigidity. FROM. No masses. RESPIRATORY: Clear to auscultation. No wheezes. No rales. Normal respiratory e ffort. CARDIAC: Normal rate. Normal rhythm. No murmurs. No rubs. Extremities warm and well perfused. Pulses equal. No JVD. GI: Soft, non-distended. No tenderness to palpation. No rebound or guarding. No masses. MUSCULOSKELETAL: Upper extremities and left lower extremity are atraumatic. No joint edema. There is bruising and abrasion noted to anterior aspect of the right knee. Patient would not cooperate for range of motion or ligamentous testing. There is an abrasion and some tenderness noted to the right great toe but again patient will not cooperate with range of motion testing. No lac erations. Calves are equal size bilaterally and non-tender. Trace bilateral edema. No discoloration. NEURO: Mildly altered sensorium. No focal sensory or motor deficits noted. SKIN: No rash or jaundice noted. OBSERVATION NOTE: The patient was placed in observation status at 1200 hrs. Reason: Overdose. During the time in observation, the patient was frequently reassessed and received cardiac monitoring, IV potassium, IV magnesium. On Final reassessment the patient is medically clear from her benzodiazepine overdose however is a involuntary psychiatric bed search. The patient will be signed out to Dr. Brunner at the change of shift at 1800 hrs. A total observation time of 6 hours under my care. Please see his note for disposition and details. Past Med/Surg History Medical History ADHD Anemia Bipolar 1 disorder Hemorrhoids MRSA (methicillin resistant staph aureus) culture positive Left breast +MRSA 05/29/19 hemorrhage hypertension Pre-eclampsia, UTI (urinary tract infection) Surgical History H/O dilation and curettage Status post incision and drainage Left breast incision and drainage Family History Other No pertinent family history in first degree relatives Social History Smoking Status: Current every day smoker Tobacco Type: Cigarettes Second Hand Exposure: No; Do You Dip or Chew Tobacco: No; Hx Alcohol Use: No Hx Substance Use: No Preferred Language: Kinyarwanda Communication Ability: Effective Automatic Machines Supervisor Required: No Beliefs That Will Affect Care: None Current Living Situation: Alone Feels Safe at Home: Yes Gender Identity: Female Assistive Devices: None Allergies Allergies Allergy/AdvReac Type Severity Reaction Status Date / Time almotriptan AdvReac Severe TIGHTNESS Verified 05/04/23 16:37 IN JAW, CAN'T BREATHE gabapentin AdvReac Severe TIGHTNESS Verified 05/04/23 16:37 IN JAW, CAN'T BREATHE sumatriptan AdvReac Severe TIGHTNESS Verified 05/04/23 16:37 IN JAW, CAN'T BREATHE Home Meds Home Medications Medication Instructions Recorded Confirmed dextroamphetamine-amphetamine 30 30 mg PO QAM 05/13/19 05/04/23 mg tablet omeprazole 40 mg capsule,delayed 40 mg PO DAILYBB 05/13/19 05/04/23 release alprazolam 1 mg tablet 1 mg PO HS 05/24/19 05/04/23 dextroamphetamine-amphetamine 10 10 mg PO .DAILY @ 1600 07/17/22 05/04/23 mg tablet dextroamphetamine-amphetamine 20 20 mg PO .DAILY @ 1200 07/17/22 05/04/23 mg tablet lamotrigine 150 mg tablet 150 mg PO HS 07/17/22 05/04/23 citalopram 40 mg tablet 40 mg PO DAILY 05/04/23 05/04/23 doxepin 10 mg capsule 20 mg PO BID PRN Anxiety 05/04/23 05/04/23 fluticasone propionate 50 1 - 2 spray intranasal DAILY 05/04/23 05/04/23 mcg/actuation nasal spray,suspension hydroxyzine pamoate 25 mg capsule 25 mg PO BID PRN Anxiety 05/04/23 05/04/23 Results & Data (ED) Vital Signs Vital Signs - 24 hr 05/04/23 10:15 05/04/23 10:25 05/04/23 10:34 Temperature 36.8 C Temperature Source Temporal Artery Scan Pulse Rate 89 85 Pulse Rate [Apical] 85 Pulse Rate from SpO2 Sensor Pulse Rhythm [Apical] Pulse Strength [Apical] Respiratory Rate 18 Respiratory Effort / Characteristics Non-Labored Respiratory Depth Normal Blood Pressure 129/89 Blood Pressure [Right Radial Artery] Blood Pressure Mean 102 Blood Pressure Mean [Right Radial Artery] Blood Pressure Position [Right Radial Artery] Pulse Oximetry 100 100 Oxygen Delivery Method Room Air Room Air Sepsis Recent Fever Within 48 Hours No Sepsis New/Unexplained Change in Mental Status No Sepsis Action Taken by Nursing No Action Required 05/04/23 10:51 05/04/23 11:34 05/04/23 13:31 Temperature Temperature Source Pulse Rate Pulse Rate [Apical] 83 93 H Pulse Rate from SpO2 Sensor Pulse Rhythm [Apical] Regular Regular Pulse Strength [Apical] Normal Normal Respiratory Rate 18 18 Respiratory Effort / Characteristics Non-Labored Spontaneous Non-Labored Spontaneous Respiratory Depth Normal Normal Blood Pressure Blood Pressure [Right Radial Artery] 152/110 H Blood Pressure Mean Blood Pressure Mean [Right Radial Artery] 124 Blood Pressure Position [Right Radial Artery] Lying Pulse Oximetry 98 98 97 Oxygen Delivery Method Room Air Room Air Room Air Sepsis Recent Fever Within 48 Hours Sepsis New/Unexplained Change in Mental Status Sepsis Action Taken by Nursing 05/04/23 14:09 05/04/23 14:22 05/04/23 10:07 Temperature Temperature Source Pulse Rate 98 H 94 H Pulse Rate [Apical] 98 H Pulse Rate from SpO2 Sensor Pulse Rhythm [Apical] Regular Pulse Strength [Apical] Normal Respiratory Rate 19 19 Respiratory Effort / Characteristics Non-Labored Spontaneous Respiratory Depth Normal Blood Pressure Blood Pressure [Right Radial Artery] 139/80 Blood Pressure Mean Blood Pressure Mean [Right Radial Artery] 99 Blood Pressure Position [Right Radial Artery] Pulse Oximetry 95 Oxygen Delivery Method Room Air Sepsis Recent Fever Within 48 Hours Sepsis New/Unexplained Change in Mental Status Sepsis Action Taken by Nursing 05/04/23 10:09 05/04/23 10:09 05/04/23 10:09 Temperature Temperature Source Pulse Rate 80 Pulse Rate [Apical] Pulse Rate from SpO2 Sensor 84 Pulse Rhythm [Apical] Pulse Strength [Apical] Respiratory Rate 17 Respiratory Effort / Characteristics Respiratory Depth Blood Pressure 129/89 129/89 Blood Pressure [Right Radial Artery] Blood Pressure Mean 99 99 Blood Pressure Mean [Right Radial Artery] Blood Pressure Position [Right Radial Artery] Pulse Oximetry 100 Oxygen Delivery Method Sepsis Recent Fever Within 48 Hours Sepsis New/Unexplained Change in Mental Status Sepsis Action Taken by Nursing 05/04/23 10:10 05/04/23 10:20 05/04/23 10:49 Temperature Temperature Source Pulse Rate 76 82 76 Pulse Rate [Apical] Pulse Rate from SpO2 Sensor 78 82 Pulse Rhythm [Apical] Pulse Strength [Apical] Respiratory Rate 17 18 Respiratory Effort / Characteristics Respiratory Depth Blood Pressure Blood Pressure [Right Radial Artery] Blood Pressure Mean Blood Pressure Mean [Right Radial Artery] Blood Pressure Position [Right Radial Artery] Pulse Oximetry 97 99 Oxygen Delivery Method Sepsis Recent Fever Within 48 Hours Sepsis New/Unexplained Change in Mental Status Sepsis Action Taken by Nursing 05/04/23 10:50 05/04/23 11:19 05/04/23 11:20 Temperature Temperature Source Pulse Rate 86 Pulse Rate [Apical] Pulse Rate from SpO2 Sensor 81 81 Pulse Rhythm [Apical] Pulse Strength [Apical] Respiratory Rate 25 H Respiratory Effort / Characteristics Respiratory Depth Blood Pressure Blood Pressure [Right Radial Artery] Blood Pressure Mean Blood Pressure Mean [Right Radial Artery] Blood Pressure Position [Right Radial Artery] Pulse Oximetry 99 99 Oxygen Delivery Method Sepsis Recent Fever Within 48 Hours Sepsis New/Unexplained Change in Mental Status Sepsis Action Taken by Nursing 05/04/23 11:29 05/04/23 11:29 05/04/23 11:30 Temperature Temperature Source Pulse Rate 82 84 Pulse Rate [Apical] Pulse Rate from SpO2 Sensor 82 84 Pulse Rhythm [Apical] Pulse Strength [Apical] Respiratory Rate 20 25 H Respiratory Effort / Characteristics Respiratory Depth Blood Pressure 152/110 H Blood Pressure [Right Radial Artery] Blood Pressure Mean 130 Blood Pressure Mean [Right Radial Artery] Blood Pressure Position [Right Radial Artery] Pulse Oximetry 99 99 Oxygen Delivery Method Sepsis Recent Fever Within 48 Hours Sepsis New/Unexplained Change in Mental Status Sepsis Action Taken by Nursing 05/04/23 11:40 05/04/23 11:50 05/04/23 12:00 Temperature Temperature Source Pulse Rate 85 98 H Pulse Rate [Apical] Pulse Rate from SpO2 Sensor 85 Pulse Rhythm [Apical] Pulse Strength [Apical] Respiratory Rate 30 H 16 Respiratory Effort / Characteristics Respiratory Depth Blood Pressure 156/101 H Blood Pressure [Right Radial Artery] Blood Pressure Mean 135 Blood Pressure Mean [Right Radial Artery] Blood Pressure Position [Right Radial Artery] Pulse Oximetry 98 Oxygen Delivery Method Sepsis Recent Fever Within 48 Hours Sepsis New/Unexplained Change in Mental Status Sepsis Action Taken by Nursing 05/04/23 12:00 05/04/23 12:10 05/04/23 12:20 Temperature Temperature Source Pulse Rate 76 82 85 Pulse Rate [Apical] Pulse Rate from SpO2 Sensor Pulse Rhythm [Apical] Pulse Strength [Apical] Respiratory Rate 16 15 15 Respiratory Effort / Characteristics Respiratory Depth Blood Pressure Blood Pressure [Right Radial Artery] Blood Pressure Mean Blood Pressure Mean [Right Radial Artery] Blood Pressure Position [Right Radial Artery] Pulse Oximetry Oxygen Delivery Method Sepsis Recent Fever Within 48 Hours Sepsis New/Unexplained Change in Mental Status Sepsis Action Taken by Nursing 05/04/23 12:30 05/04/23 12:30 05/04/23 12:40 Temperature Temperature Source Pulse Rate 89 91 H Pulse Rate [Apical] Pulse Rate from SpO2 Sensor Pulse Rhythm [Apical] Pulse Strength [Apical] Respiratory Rate 16 16 Respiratory Effort / Characteristics Respiratory Depth Blood Pressure 134/95 Blood Pressure [Right Radial Artery] Blood Pressure Mean 105 Blood Pressure Mean [Right Radial Artery] Blood Pressure Position [Right Radial Artery] Pulse Oximetry Oxygen Delivery Method Sepsis Recent Fever Within 48 Hours Sepsis New/Unexplained Change in Mental Status Sepsis Action Taken by Nursing 05/04/23 12:50 05/04/23 13:00 05/04/23 13:00 Temperature Temperature Source Pulse Rate 94 H 99 H Pulse Rate [Apical] Pulse Rate from SpO2 Sensor Pulse Rhythm [Apical] Pulse Strength [Apical] Respiratory Rate 16 17 Respiratory Effort / Characteristics Respiratory Depth Blood Pressure 146/97 H Blood Pressure [Right Radial Artery] Blood Pressure Mean 111 Blood Pressure Mean [Right Radial Artery] Blood Pressure Position [Right Radial Artery] Pulse Oximetry Oxygen Delivery Method Sepsis Recent Fever Within 48 Hours Sepsis New/Unexplained Change in Mental Status Sepsis Action Taken by Nursing 05/04/23 13:10 05/04/23 13:20 05/04/23 13:30 Temperature Temperature Source Pulse Rate 98 H 99 H 97 H Pulse Rate [Apical] Pulse Rate from SpO2 Sensor 97 H Pulse Rhythm [Apical] Pulse Strength [Apical] Respiratory Rate 20 17 15 Respiratory Effort / Characteristics Respiratory Depth Blood Pressure Blood Pressure [Right Radial Artery] Blood Pressure Mean Blood Pressure Mean [Right Radial Artery] Blood Pressure Position [Right Radial Artery] Pulse Oximetry 95 Oxygen Delivery Method Sepsis Recent Fever Within 48 Hours Sepsis New/Unexplained Change in Mental Status Sepsis Action Taken by Nursing 05/04/23 13:40 05/04/23 13:50 05/04/23 14:00 Temperature Temperature Source Pulse Rate 94 H 96 H Pulse Rate [Apical] Pulse Rate from SpO2 Sensor 94 H 97 H Pulse Rhythm [Apical] Pulse Strength [Apical] Respiratory Rate 17 16 Respiratory Effort / Characteristics Respiratory Depth Blood Pressure 139/80 Blood Pressure [Right Radial Artery] Blood Pressure Mean 113 Blood Pressure Mean [Right Radial Artery] Blood Pressure Position [Right Radial Artery] Pulse Oximetry 96 95 Oxygen Delivery Method Sepsis Recent Fever Within 48 Hours Sepsis New/Unexplained Change in Mental Status Sepsis Action Taken by Nursing 05/04/23 14:00 05/04/23 14:10 05/04/23 14:20 Temperature Temperature Source Pulse Rate 97 H 96 H 97 H Pulse Rate [Apical] Pulse Rate from SpO2 Sensor 97 H 96 H 97 H Pulse Rhythm [Apical] Pulse Strength [Apical] Respiratory Rate 16 16 16 Respiratory Effort / Characteristics Respiratory Depth Blood Pressure Blood Pressure [Right Radial Artery] Blood Pressure Mean Blood Pressure Mean [Right Radial Artery] Blood Pressure Position [Right Radial Artery] Pulse Oximetry 94 95 95 Oxygen Delivery Method Sepsis Recent Fever Within 48 Hours Sepsis New/Unexplained Change in Mental Status Sepsis Action Taken by Nursing 05/04/23 14:30 05/04/23 14:30 05/04/23 14:40 Temperature Temperature Source Pulse Rate 97 H 96 H Pulse Rate [Apical] Pulse Rate from SpO2 Sensor 97 H 96 H Pulse Rhythm [Apical] Pulse Strength [Apical] Respiratory Rate 16 16 Respiratory Effort / Characteristics Respiratory Depth Blood Pressure 131/85 Blood Pressure [Right Radial Artery] Blood Pressure Mean 100 Blood Pressure Mean [Right Radial Artery] Blood Pressure Position [Right Radial Artery] Pulse Oximetry 95 95 Oxygen Delivery Method Sepsis Recent Fever Within 48 Hours Sepsis New/Unexplained Change in Mental Status Sepsis Action Taken by Nursing 05/04/23 14:50 05/04/23 15:00 05/04/23 15:00 Temperature Temperature Source Pulse Rate 98 H 90 Pulse Rate [Apical] Pulse Rate from SpO2 Sensor 98 H 89 Pulse Rhythm [Apical] Pulse Strength [Apical] Respiratory Rate 17 15 Respiratory Effort / Characteristics Respiratory Depth Blood Pressure 131/95 Blood Pressure [Right Radial Artery] Blood Pressure Mean 98 Blood Pressure Mean [Right Radial Artery] Blood Pressure Position [Right Radial Artery] Pulse Oximetry 95 95 Oxygen Delivery Method Sepsis Recent Fever Within 48 Hours Sepsis New/Unexplained Change in Mental Status Sepsis Action Taken by Nursing 05/04/23 15:10 05/04/23 15:22 05/04/23 16:26 Temperature Temperature Source Pulse Rate 97 H 104 H 88 Pulse Rate [Apical] Pulse Rate from SpO2 Sensor 94 H 95 H Pulse Rhythm [Apical] Pulse Strength [Apical] Respiratory Rate 18 14 12 Respiratory Effort / Characteristics Respiratory Depth Blood Pressure Blood Pressure [Right Radial Artery] Blood Pressure Mean Blood Pressure Mean [Right Radial Artery] Blood Pressure Position [Right Radial Artery] Pulse Oximetry 96 98 Oxygen Delivery Method Sepsis Recent Fever Within 48 Hours Sepsis New/Unexplained Change in Mental Status Sepsis Action Taken by Nursing 05/04/23 16:30 05/04/23 16:31 05/04/23 16:31 Temperature Temperature Source Pulse Rate 94 H 93 H Pulse Rate [Apical] Pulse Rate from SpO2 Sensor 91 H 94 H Pulse Rhythm [Apical] Pulse Strength [Apical] Respiratory Rate 20 23 Respiratory Effort / Characteristics Respiratory Depth Blood Pressure 149/100 H Blood Pressure [Right Radial Artery] Blood Pressure Mean 121 Blood Pressure Mean [Right Radial Artery] Blood Pressure Position [Right Radial Artery] Pulse Oximetry 94 99 Oxygen Delivery Method Sepsis Recent Fever Within 48 Hours Sepsis New/Unexplained Change in Mental Status Sepsis Action Taken by Nursing Laboratory Data 05/04/23 10:59 05/04/23 10:59 Lab Results 05/04/23 05/04/23 05/04/23 Range/Units 10:59 10:59 10:59 WBC 6.92 (4.8-10.8) K/ul RBC 3.95 L (4.20-5.40) M/uL Hgb 11.1 L (12.0-16.0) g/dl Hct 33.9 L (37.0-47.0) % MCV 85.8 (80.0-100.0) fL MCH 28.1 (25.0-34.0) pg MCHC 32.7 (32.0-36.0) g/dL RDW Std Deviation 44.3 (36.4-46.3) fL RDW Coeff of Dax 14.3 (11.5-14.5) % Plt Count 271 (130-400) K/uL MPV 9.7 (9.4-12.4) fL Immature Gran % (Auto) 0.1 % Neut % (Auto) 60.8 % Lymph % (Auto) 28.5 % Giles % (Auto) 8.5 % Eos % (Auto) 1.7 % Baso % (Auto) 0.4 % Neut # (Auto) 4.20 (1.40-6.50) K/uL Lymph # (Auto) 1.97 (1.2-3.4) K/uL Giles # (Auto) 0.59 (0.11-0.59) K/uL Eos # (Auto) 0.12 (0-0.50) K/uL Baso # (Auto) 0.03 (0-0.2) K/uL Immature Gran # (Auto) 0.01 (0.01-0.20) K/uL PT 11.4 (9.0-12.0) Seconds INR 1.0 (0.9-1.1) Sodium 138 (136-145) mmol/L Potassium 3.6 (3.5-5.1) mmol/L Chloride 106 (98-107) mmol/L Carbon Dioxide 24 (21-32) mmol/L Anion Gap 8 (3-11) BUN 12 (6-23) mg/dl Creatinine 0.71 (0.6-1.2) mg/dl Est Cr Clr Drug Dosing 137.5 ml/min Est GFR ( Amer) 129.7 ml/min Est GFR (Non-Af Amer) 111.9 ml/min BUN/Creatinine Ratio 16.9 (10-20) Glucose 77 (70-99(Fasting)) mg/dl Calcium 8.4 L (8.6-10.3) mg/dl Magnesium 1.8 (1.7-2.4) mg/dl Total Bilirubin 0.6 (0.2-1.0) mg/dl AST 17 (13-39) U/L ALT 26 (7-52) U/L Alkaline Phosphatase 66 (34-104) U/L Total Creatine Kinase 79 (26-192) U/L Troponin I High Sens < 2.3 (0-14) pg/ml Total Protein 6.3 (6.0-8.3) gm/dl Albumin 3.7 (3.4-5.0) gm/dl Globulin 2.6 (2.5-4.0) gm/dl Albumin/Globulin Ratio 1.4 (0.9-2) HCG, Qual (Negative) Urine Color Urine Appearance (Clear) Urine pH (4.5-7.5) Ur Specific Brandt (1.000-1.030) Urine Protein (Negative) Urine Glucose (UA) (Negative) Urine Ketones (Negative) Urine Blood (Negative) Urine Nitrite (Negative) Urine Bilirubin (Negative) Urine Urobilinogen (Negative) Ur Leukocyte Esterase (Negative) Urine WBC (Auto) (0-5) /hpf Urine RBC (Auto) (0-4) /hpf U Hyaline Cast (Auto) (0-5) /lpf U Epithel Cells (Auto) (0-5) /lpf Urine Bacteria (Auto) (Negative) Salicylates (3.0-30) mg/dl Urine Opiates Screen (Neg) Ur Methadone, Qual (Neg) Acetaminophen (10-30) ug/ml Urine Barbiturates (Neg) Ur Phencyclidine (PCP) (Neg) U Amphetamin/Meth Scrn (Neg) MDMA (Ecstasy) Screen (Neg) U Benzodiazepines Scrn (Neg) Ur Cocaine Metabolite (Neg) U Marijuana (THC) Screen (Neg) Ethyl Alcohol mg/dL (<10.0) mg/dl 05/04/23 05/04/23 05/04/23 Range/Units 10:59 10:59 10:59 WBC (4.8-10.8) K/ul RBC (4.20-5.40) M/uL Hgb (12.0-16.0) g/dl Hct (37.0-47.0) % MCV (80.0-100.0) fL MCH (25.0-34.0) pg MCHC (32.0-36.0) g/dL RDW Std Deviation (36.4-46.3) fL RDW Coeff of Dax (11.5-14.5) % Plt Count (130-400) K/uL MPV (9.4-12.4) fL Immature Gran % (Auto) % Neut % (Auto) % Lymph % (Auto) % Giles % (Auto) % Eos % (Auto) % Baso % (Auto) % Neut # (Auto) (1.40-6.50) K/uL Lymph # (Auto) (1.2-3.4) K/uL Giles # (Auto) (0.11-0.59) K/uL Eos # (Auto) (0-0.50) K/uL Baso # (Auto) (0-0.2) K/uL Immature Gran # (Auto) (0.01-0.20) K/uL PT (9.0-12.0) Seconds INR (0.9-1.1) Sodium (136-145) mmol/L Potassium (3.5-5.1) mmol/L Chloride (98-107) mmol/L Carbon Dioxide (21-32) mmol/L Anion Gap (3-11) BUN (6-23) mg/dl Creatinine (0.6-1.2) mg/dl Est Cr Clr Drug Dosing ml/min Est GFR ( Amer) ml/min Est GFR (Non-Af Amer) ml/min BUN/Creatinine Ratio (10-20) Glucose (70-99(Fasting)) mg/dl Calcium (8.6-10.3) mg/dl Magnesium (1.7-2.4) mg/dl Total Bilirubin (0.2-1.0) mg/dl AST (13-39) U/L ALT (7-52) U/L Alkaline Phosphatase (34-104) U/L Total Creatine Kinase (26-192) U/L Troponin I High Sens (0-14) pg/ml Total Protein (6.0-8.3) gm/dl Albumin (3.4-5.0) gm/dl Globulin (2.5-4.0) gm/dl Albumin/Globulin Ratio (0.9-2) HCG, Qual Negative (Negative) Urine Color Urine Appearance (Clear) Urine pH (4.5-7.5) Ur Specific Brandt (1.000-1.030) Urine Protein (Negative) Urine Glucose (UA) (Negative) Urine Ketones (Negative) Urine Blood (Negative) Urine Nitrite (Negative) Urine Bilirubin (Negative) Urine Urobilinogen (Negative) Ur Leukocyte Esterase (Negative) Urine WBC (Auto) (0-5) /hpf Urine RBC (Auto) (0-4) /hpf U Hyaline Cast (Auto) (0-5) /lpf U Epithel Cells (Auto) (0-5) /lpf Urine Bacteria (Auto) (Negative) Salicylates < 3.0 L (3.0-30) mg/dl Urine Opiates Screen (Neg) Ur Methadone, Qual (Neg) Acetaminophen < 3 L (10-30) ug/ml Urine Barbiturates (Neg) Ur Phencyclidine (PCP) (Neg) U Amphetamin/Meth Scrn (Neg) MDMA (Ecstasy) Screen (Neg) U Benzodiazepines Scrn (Neg) Ur Cocaine Metabolite (Neg) U Marijuana (THC) Screen (Neg) Ethyl Alcohol mg/dL < 10.0 (<10.0) mg/dl 05/04/23 05/04/23 Range/Units 15:25 15:25 WBC (4.8-10.8) K/ul RBC (4.20-5.40) M/uL Hgb (12.0-16.0) g/dl Hct (37.0-47.0) % MCV (80.0-100.0) fL MCH (25.0-34.0) pg MCHC (32.0-36.0) g/dL RDW Std Deviation (36.4-46.3) fL RDW Coeff of Dax (11.5-14.5) % Plt Count (130-400) K/uL MPV (9.4-12.4) fL Immature Gran % (Auto) % Neut % (Auto) % Lymph % (Auto) % Giles % (Auto) % Eos % (Auto) % Baso % (Auto) % Neut # (Auto) (1.40-6.50) K/uL Lymph # (Auto) (1.2-3.4) K/uL Giles # (Auto) (0.11-0.59) K/uL Eos # (Auto) (0-0.50) K/uL Baso # (Auto) (0-0.2) K/uL Immature Gran # (Auto) (0.01-0.20) K/uL PT (9.0-12.0) Seconds INR (0.9-1.1) Sodium (136-145) mmol/L Potassium (3.5-5.1) mmol/L Chloride (98-107) mmol/L Carbon Dioxide (21-32) mmol/L Anion Gap (3-11) BUN (6-23) mg/dl Creatinine (0.6-1.2) mg/dl Est Cr Clr Drug Dosing ml/min Est GFR ( Amer) ml/min Est GFR (Non-Af Amer) ml/min BUN/Creatinine Ratio (10-20) Glucose (70-99(Fasting)) mg/dl Calcium (8.6-10.3) mg/dl Magnesium (1.7-2.4) mg/dl Total Bilirubin (0.2-1.0) mg/dl AST (13-39) U/L ALT (7-52) U/L Alkaline Phosphatase (34-104) U/L Total Creatine Kinase (26-192) U/L Troponin I High Sens (0-14) pg/ml Total Protein (6.0-8.3) gm/dl Albumin (3.4-5.0) gm/dl Globulin (2.5-4.0) gm/dl Albumin/Globulin Ratio (0.9-2) HCG, Qual (Negative) Urine Color Yellow Urine Appearance Clear (Clear) Urine pH 5.0 (4.5-7.5) Ur Specific Brandt 1.012 (1.000-1.030) Urine Protein Negative (Negative) Urine Glucose (UA) Negative (Negative) Urine Ketones Trace H (Negative) Urine Blood Negative (Negative) Urine Nitrite Negative (Negative) Urine Bilirubin Negative (Negative) Urine Urobilinogen Negative (Negative) Ur Leukocyte Esterase 1+ H (Negative) Urine WBC (Auto) 5-10 H (0-5) /hpf Urine RBC (Auto) 0-4 (0-4) /hpf U Hyaline Cast (Auto) 0 (0-5) /lpf U Epithel Cells (Auto) >30 H (0-5) /lpf Urine Bacteria (Auto) Negative (Negative) Salicylates (3.0-30) mg/dl Urine Opiates Screen Neg (Neg) Ur Methadone, Qual Neg (Neg) Acetaminophen (10-30) ug/ml Urine Barbiturates Neg (Neg) Ur Phencyclidine (PCP) Neg (Neg) U Amphetamin/Meth Scrn Pos H (Neg) MDMA (Ecstasy) Screen Pos H (Neg) U Benzodiazepines Scrn Pos H (Neg) Ur Cocaine Metabolite Neg (Neg) U Marijuana (THC) Screen Pos H (Neg) Ethyl Alcohol mg/dL (<10.0) mg/dl Administered Medications Discontinued Medications Potassium Chloride (K Royce / Wtr) 10 meq in 100 mls @ 100 mls/hr IV ONE ONE; Protocol Stop: 05/04/23 14:29 Last Infusion: 05/04/23 14:52 Dose: 0 mls/hr Documented By: Admin: 05/04/23 13:40 Dose: 100 mls/hr Documented By: BURKE Magnesium Sulfate/Dextrose (Magnesium Sulfate / D5w) 1 gm in 100 mls @ 50 mls/hr IV ONE ONE Stop: 05/04/23 15:29 Last Infusion: 05/04/23 14:52 Dose: 0 mls/hr Documented By: Admin: 05/04/23 13:43 Dose: 50 mls/hr Documented By: BURKE Imaging Data Radiologist's Impression: Knee X-Ray 05/04/23 10:33 XR knee RT 1 or 2V routine HISTORY: 33 years-old Female trauma acute right knee pain without reported trauma COMPARISON: None TECHNIQUE: 2 views of the right knee FINDINGS: Mild circumferential soft tissue swelling. No acute fracture, dislocation, radiopaque foreign body or large joint effusion. IMPRESSION: Soft tissue swelling without acute osseous abnormality. ACT 112: Negative or not required by law. The above report was generated using voice recognition software. It may contain grammatical, syntax or spelling errors. Electronically signed by: Kb Fitzgerald M.D. 05/04/2023 12:32 PM Toe X-Ray 05/04/23 10:33 RIGHT FIRST TOE 2 VIEWS CLINICAL HISTORY: First toe injury. FINDINGS: AP and lateral views of the right first toe were obtained. No prior studies are available for comparison at the time of dictation. The skeletal structures are well-mineralized. No fracture or dislocation is seen. The joint spaces of the first toe are maintained. Dorsal soft tissue swelling is observed on the lateral projection. IMPRESSION: Soft tissue swelling with no fracture identified. Electronically signed by: Oscar Soliman M.D. 05/04/2023 12:03 PM Discharge Plan Visit Data Chief Complaint: Overdose (Accidental) ED Provider: Nishant Brunner Discharge Problem: Intentional overdose, Suicidal ideation, Contusion of knee, right, Abrasion of toe Forms Stand Alone Forms: My [facility] Prescriptions Prescriptions: No Action omeprazole 40 mg capsule,delayed release(DR/EC) 40 mg PO DAILYBB Rx Instructions: TAKE THIS MEDICATION ONCE DAILY ONE HOUR BEFORE FIRST MEAL OF THE DAY dextroamphetamine-amphetamine 30 mg tablet 30 mg PO QAM alprazolam 1 mg tablet 1 mg PO HS lamotrigine 150 mg tablet 150 mg PO HS dextroamphetamine-amphetamine 10 mg tablet 10 mg PO .DAILY @ 1600 dextroamphetamine-amphetamine 20 mg tablet 20 mg PO .DAILY @ 1200 citalopram 40 mg tablet 40 mg PO DAILY fluticasone propionate 50 mcg/actuation spray,suspension 1 - 2 spray INTRANASAL DAILY hydroxyzine pamoate 25 mg capsule 25 mg PO BID PRN (Reason: Anxiety) doxepin 10 mg capsule 20 mg PO BID PRN (Reason: Anxiety) Referrals Referrals: Araseli Zaragoza DO [Primary Care Provider] -
[2023-05-04 11:23] LABS: Basophils # (auto) 0.03 K/uL (0-0.2); Basophils % (auto) 0.4 %; Eosinophils # (auto) 0.12 K/uL (0-0.50); Eosinophils % (auto) 1.7 %; Hematocrit (blood only) 33.9 % (37.0-47.0); Hemoglobin 11.1 g/dl (12.0-16.0); Immature Granulocytes # (auto) 0.01 K/uL (0.01-0.20); Immature Granulocytes % (auto) 0.1 %; Lymphocytes # (auto) 1.97 K/uL (1.2-3.4); Lymphocytes % (auto) 28.5 %; Mean Corpuscular Hemoglobin 28.1 pg (25.0-34.0); Mean Corpuscular Hgb Conc 32.7 g/dL (32.0-36.0); Mean Corpuscular Volume 85.8 fL (80.0-100.0); Mean Platelet Volume 9.7 fL (9.4-12.4); Monocytes # (auto) 0.59 K/uL (0.11-0.59); Monocytes % (auto) 8.5 %; Neutrophils % (auto) 60.8 %; Platelet Count 271 K/uL (130-400); RDW Coefficient of Variation 14.3 % (11.5-14.5); RDW Standard Deviation 44.3 fL (36.4-46.3); Red Blood Count 3.95 M/uL (4.20-5.40); White Blood Count 6.92 K/ul (4.8-10.8)
[2023-05-04 11:28] LABS: Pregnancy Test, Serum Negative (Negative)
[2023-05-04 11:41] LABS: Acetaminophen < 3 ug/ml (10-30); Salicylate < 3.0 mg/dl (3.0-30)
[2023-05-04 11:55] LABS: Prothrombin Time 11.4 Seconds (9.0-12.0)
--- NOTE | 2023-05-04 12:05 | XRay Report ---
RIGHT FIRST TOE 2 VIEWS CLINICAL HISTORY: First toe injury. FINDINGS: AP and lateral views of the right first toe were obtained. No prior studies are available f or comparison at the time of dictation. The skeletal structures are well-mineralized. No fracture or dislocation is seen. The joint spaces of the first toe are maintained. Dorsal soft tissue swelling is observed on the lateral projection. IMPRESSION: Soft tissue swelling with no fracture identified. Electronically signed by: Oscar Soliman M.D. 05/04/2023 12:03 PM
[2023-05-04 12:11] LABS: Albumin Level 3.7 gm/dl (3.4-5.0); Anion Gap 8 (3-11); Bilirubin,Total 0.6 mg/dl (0.2-1.0); Calcium 8.4 mg/dl (8.6-10.3); Carbon Dioxide 24 mmol/L (21-32); Chloride 106 mmol/L (98-107); Magnesium 1.8 mg/dl (1.7-2.4); Potassium 3.6 mmol/L (3.5-5.1); Sodium 138 mmol/L (136-145)
[2023-05-04 12:17] LABS: Alanine Aminotransferase 26 U/L (7-52); Albumin Globulin Ratio 1.4 (0.9-2); Alkaline Phosphatase 66 U/L (34-104); Aspartate Aminotransferase 17 U/L (13-39); BUN Creatinine Ratio 16.9 (10-20); Blood Urea Nitrogen 12 mg/dl (6-23); Creatine Kinase 79 U/L (26-192); Creatinine Clr Calc Pharmacy 137.5 ml/min; Est GFR (African American) 129.7 ml/min; Est GFR (Non-African American) 111.9 ml/min; Globulin 2.6 gm/dl (2.5-4.0); Glucose 77 mg/dl (70-99(Fasting)); Total Protein 6.3 gm/dl (6.0-8.3)
[2023-05-04 12:32] LABS: Troponin I High Sensitivity < 2.3 pg/ml (0-14)
--- NOTE | 2023-05-04 12:33 | XRay Report ---
XR knee RT 1 or 2V routine HISTORY: 33 years-old Female trauma acute right knee pain without reported trauma COMPARISON: None TECHNIQUE: 2 views of the right knee FINDINGS: Mild circumferential soft tissue swelling. No acute fracture, dislocation, radiopaque foreign body or large joint effusion. IMPRESSION: Soft tissue swelling without acute osseous abnormality. ACT 112: Negative or not required by law. The above report was generated using voice recognition software. It may contain grammatical, syntax o r spelling errors. Electronically signed by: Kb Fitzgerald M.D. 05/04/2023 12:32 PM
[2023-05-04] MEDS ORDERED: POTASSIUM CHLORIDE / WTR 10 MEQ/100 ML PLCT IV ONE (13:30)
[2023-05-04] MEDS ORDERED: MAGNESIUM SULFATE / D5W 1 GM/100 ML BAG IV ONE (13:30)
[2023-05-04 16:11] LABS: Appearance Urine Clear (Clear); Bacteria Urine Automated Negative (Negative); Bilirubin Urine Negative (Negative); Blood Urine Negative (Negative); Cast Urine Automated 0 /lpf (0-5); Color Urine Yellow; Epithelial Cell Urine Auto >30 /lpf (0-5); Glucose Urine UA Negative (Negative); Ketones Urine Trace (Negative); Leukocyte Esterase Urine 1+ (Negative); Nitrite Urine Negative (Negative); Protein Urine Negative (Negative); RBC Urine Automated 0-4 /hpf (0-4); Specific Gravity Urine 1.012 (1.000-1.030); Urobilinogen Urine Negative (Negative)
[2023-05-04 16:26] LABS: Amphetamines+Metham, Urine Pos (Neg); Barbiturates, Urine Neg (Neg); Benzodiazepine, Urine Pos (Neg); Cocaine, Urine Neg (Neg); MDMA (Ecstacy), Urine Pos (Neg); Methadone, Urine Neg (Neg); Opiate, Urine Neg (Neg); Phencyclidine, Urine Neg (Neg)
[2023-05-04] MEDS ORDERED: hydrOXYzine HCl 25 MG TAB PO PRN (17:14)
--- NOTE | 2023-05-04 17:51 | Emergency Department Note ---
ED Visit Note ED Physician Sign Out Note: 33-year-old female arrives following a polysubstance overdose. Patient is making suicidal statements and plans to kill herself. Patient was observed over several hours and medically cleared by Dr. Wright. She has a 302 warrant that is signed. Evening medications have already been ordered. Signed out to me pending placement. Dr. Wright had ordered a chest x-ray prior to signing out to me. My review of chest x-ray is unremarkable. X ray results are stated below per my interpretation: Chest: 1 view: No infiltrate, no effusion, normal cardiac border. Patient was stable throughout and she was excepted to 3 S. for further management Nishant Brunner MD
[2023-05-04] MEDS ORDERED: NICOTINE 14 MG/24 HR PATCH TD STA (17:57)
[2023-05-04] MEDS ORDERED: COUGH DROP (SUGAR FREE) LOZ 24 LOZ/1 BOX BUCCAL STA (18:47)
--- NOTE | 2023-05-04 19:12 | XRay Report ---
SINGLE VIEW CHEST CLINICAL HISTORY: Cough FINDINGS: An AP, portable, upright chest radiograph is compared to study dated 07/28/2019. The cardio mediastinal silhouette is unremarkable. The lungs and pleural spaces are clear. No pneumothorax is se en. The bony thorax is grossly intact. IMPRESSION: No active disease in the chest. ACT 112: Negative or not required by law. Electronically signed by: Oscar Soliman M.D. 05/04/2023 7:11 PM
[2023-05-04] MEDS ORDERED: ACETAMINOPHEN 325 MG TAB PO PRN (21:15)
[2023-05-04] MEDS ORDERED: SODIUM CHLORIDE 0.65% NA SOLN 45 ML (OCEAN) PRN (21:15)
[2023-05-04] MEDS ORDERED: NICOTINE POLACRILEX 2 MG GUM MT PRN (21:25)
[2023-05-04] MEDS: lamoTRIgine 100 MG TAB PO SCH (22:24)
[2023-05-05] MEDS ORDERED: AMPHETAMINE ASP/SULF/DEXTRAMPH 10 MG TAB PO SCH ×2 (09:00→16:00)
--- NOTE | 2023-05-05 11:13 | History & Physical ---
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 (Lamotrigine 100 Mg Tab) 150 mg PO HS [facility] Stop: 06/03/23 20:59 Last Admin: 05/04/23 22:24 Dose: Not Given Miscellaneous (Remove Nicoderm Patch) 1 each N/A DAILY@0859 [facility] Stop: 06/04/23 08:58 Nicotine (Nicotine 14 Mg/24 Hr Patch) 14 mg TD QAM CARL Stop: 06/04/23 08:59 Nicotine Polacrilex (Nicotine Polacrilex 2 Mg Gum) 2 piece MT PRN PRN PRN Reason: Smoking cessation Stop: 06/03/23 21:24 Pantoprazole Sodium (Pantoprazole 40 Mg Tab) 40 mg PO DAILYBB [facility] Stop: 06/04/23 06:29 Sodium Chloride (Sodium Chloride 0.65% Na Soln 45 Ml ([place])) 1 - 2 sprays NA PRN PRN PRN Reason: Nasal Dryness/Congestion Stop: 06/03/23 21:14
[2023-05-05] MEDS: CITALOPRAM 40 MG TAB PO SCH (11:49)
[2023-05-05] MEDS: PANTOprazole 40 MG TAB PO SCH (11:49)
[2023-05-05] MEDS: BISMUTH SUBSALICYLATE LIQD 236 ML PO PRN ×2 (11:50→18:02)
[2023-05-05] MEDS ORDERED: AMPHETAMINE ASP/SULF/DEXTRAMPH 20 MG TAB PO SCH (12:00)
[2023-05-05] MEDS: NICOTINE 14 MG/24 HR PATCH TD SCH (12:05)
[2023-05-05] MEDS: ARIPiprazole 5 MG TAB PO SCH (20:55)
[2023-05-05] MEDS: hydrOXYzine HCl 10 MG TAB PO SCH (20:55)
--- NOTE | 2023-05-06 05:56 | Electrocardiogram Report ---
Test Reason : Blood Pressure : / mmHG Vent. Rate : 089 BPM Atrial Rate : 089 BPM P-R Int : 158 ms QRS Dur : 092 ms QT Int : 376 ms P-R-T Axes : 054 034 052 degrees QTc Int : 458 ms Poor data quality, interpretation may be adversely affected Normal sinus rhythm When compared with ECG of 17-JUL-2022 14:02, No significant change was found Confirmed by Ki Batista ([id number]) on 05/06/2023 5:56:22 AM Referred By: Confirmed By:Ki Batista
--- NOTE | 2023-05-06 06:21 | Electrocardiogram Report ---
Test Reason : Blood Pressure : / mmHG Vent. Rate : 088 BPM Atrial Rate : 088 BPM P-R Int : 196 ms QRS Dur : 092 ms QT Int : 382 ms P-R-T Axes : 066 036 063 degrees QTc Int : 462 ms Normal sinus rhythm Normal ECG When compared with ECG of 04-MAY-2023 10:13, No significant change was found Confirmed by Ki Batista ([id number]) on 05/06/2023 6:21:04 AM Referred By: Confirmed By:Ki Batista
[2023-05-06] MEDS ORDERED: NON-FORMULARY MEDICATION (Omeprazole 40 mg capsule,delayed release(DR/EC)) PO SCH (08:00)
[2023-05-06] MEDS: NICOTINE 14 MG/24 HR PATCH TD SCH (08:51)
[2023-05-06] MEDS: CITALOPRAM 40 MG TAB PO SCH (08:52)
[2023-05-06] MEDS: hydrOXYzine HCl 10 MG TAB PO SCH ×4 (08:52→21:16)
[2023-05-06] MEDS: PANTOprazole 40 MG TAB PO SCH (08:52)
--- NOTE | 2023-05-06 09:24 | Psychiatric Progress Note ---
Date of Service May 06, 2023 Impression / Recommendations Impression 33 y/o F with history of Bipolar I Disorder, substance use disorders (methamphetamine, MDMA, cannabis) who presented to the ED following large reported alprazolam overdose of 30 mg and doxepin overdose of unknown size that she reported as intended to be suicidal in the context of recent methamphetamine relapse. 05/06/2023: Pt spent most of yesterday and, thus far, today in bed with her blinds drawn. Her primary complaint is "tiredness" and "low energy", though she is surprisingly accepting of my telling her that we won't be ordering any amphetamines for her. BP has been somewhat elevated, raising concern about potential for alprazolam withdrawal despite her initial reports that she had been taking "not even 1 mg" per day prior to the overdose. Other vital signs, including HR and temperature, have remained normal and she evidences no tremor or diaphoresis. Pt has appeared to tolerate aripiprazole started yesterday afternoon and scheduled low-dose hydroxyzine without reported adverse effects including sedation. 05/05/2023: Pt received hydroxyzine in the ED following overdose on unknown amount of doxepin (itself a potent H1 inhibitor with significant anticholinergic risk) and has requested it since arriving on the unit even when markedly sleepy. I think we will need to be circumspect about administering this or other anxiolytic medications and maintain awareness that pt's interest in using such medication may be disproportionately greater than appropriate reasons to use it. Given her diagnoses, a mood stabilizer would appear to be the highest priority among medication needs, but she does not appear currently to be taking one. Lamotrigine 150 mg daily appears on her current medication list, but she says she hasn't been taking it. I'm very concerned about her prescribed use of amphetamines given her Bipolar I diagnosis and history of amphetamine misuse. Her judgment in taking the amphetamines but not continuing a mood stabilizer is further cause for concern. Doxepin, like other TCA's, can be quite toxic at even small multiples of typical daily doses. It appears likely that the intended use was for sleep, and pt reports she hardly ever took any and that she took little or none with the alprazolam. (1) Bipolar I disorder, most recent episode depressed, severe without psychotic features: (2) Methamphetamine use disorder, moderate, dependence: (3) Methylenedioxymethyamphetamine (MDMA) use disorder, mild: (4) Intentional overdose: (5) ADHD: Plan 05/06/2023: * continue aripiprazole 5 mg QHS * continue scheduled hydroxyzine 10 mg QID * continue citalopram 40 mg daily * avoid PRN anxiety medication including hydroxyzine given pt's seeking such medication even when she's barely able to remain conscious * avoid benzodiazepines in light of pt's history of problematic use of such medication * maintain off stimulants - these would be relatively contraindicated by either her bipolar disorder or her methamphetamine use disorder, and she has a history of problematic use of such medication 05/05/2023: The patient was admitted to the [facility] ([facility]) on q15 min checks (behavioral with suicide precautions) for safety.The patient will participate in group, recreational, and milieu therapies and will be offered additional individual and family sessions as clinically appropriate. * start aripiprazole 5 mg QHS * cautious trial of scheduled hydroxyzine 10 mg QID * avoid PRN anxiety medication given pt's seeking such medication even when she's barely able to remain conscious * continue citalopram 40 mg daily - antidepressant unlikely to be very effective for bipolar depression, but multiple other medication changes currently underway * maintain off alprazolam for now - pt has reported 1 mg/day or less prior to overdose, so withdrawal should not be an issue; rationale for use unclear * maintain off doxepin for now - rationale for use unclear, but dose suggests sleep was intended use * maintain off lamotrigine for now - pt certainly should be taking a mood stabilizer, but she says she has not taken this recently and resuming at the reported 150 mg/day dose could be risky * maintain off stimulants for now - these would be relatively contraindicated by either her bipolar disorder or her methamphetamine use disorder, which risks are likely to outweigh any benefit in terms of treating presumptive ADHD Suicide Risk Level Suicide Risk Level: High-Moderate (q15 min suicide checks) Suicide Risk Level Comments: admitted for overdose that she intended to be suicidal Interval History Identifying Information KHANH JANG is a 33-year-old F who currently lives in [place], [place] alone, has a history of Bipolar I Disorder, methamphetamine and MDMA use disorders, and was admitted on 05/04/23 20:28 on a 302 involuntary commitment for overdose. Chief Complaint "I'm tired". Review of Systems Sleep Information Total Hours of Sleep: 6.5 Meal Information Percent Meal Consumed - Breakfast: 100 Percent Meal Consumed - Lunch: 100 Percent Meal Consumed - Dinner: 25 Nutrition Comment: No c/o nausea Subjective Subjective Patient was seen & assessed and interval progress reviewed in a multidisciplinary team meeting with the treatment team. For details, see the "Impression" section below. Physical Exam Psychiatric Orientation: oriented to person, oriented to place, oriented to time and cooperative (superficially); + not alert (drowsy) Apperance: appropriately dressed and + disheveled Eye Contact: + poor eye contact Speech: normal rate/rhythm/volume of speech Affect: + constricted affect Mood: + anxious mood and + irritable mood Thought Process: + circumstantial thought process and + tangential thought process Thought Content: + preoccupation (with anxiety medication), + hopelessness and + worthlessness Suicidal Thoughts: denies suicidal plan (after failed attempt) and denies suicidal intent; + reports suicidal thoughts Homicidal Thoughts: denies homicidal thoughts Hallucinations: no auditory hallucinations and no visual hallucinations Cognition: remote memory grossly intact and language grossly intact; + recent memory not intact (limited, palimpsest memory of recent events) and + attention not intact Estimated Intelligence: consistent with education level Insight: + poor insight Judgment: + poor judgement Vital Signs (Past 24 Hours) Last Vital Signs Temp 36.6 C 05/05/23 06:49 Pulse 75 05/06/23 06:28 Resp 16 05/06/23 06:28 BP 151/103 H 05/06/23 06:28 Pulse Ox 97 05/05/23 06:49 O2 Del Method Room Air 05/05/23 06:49 Results & Data ([facility]) Current Inpatient Medications Current Inpatient Medications: Current Inpatient Medications Acetaminophen (Acetaminophen 325 Mg Tab) 650 mg PO Q4H PRN PRN Reason: Headache or Minor Fever Stop: 06/03/23 21:14 Aripiprazole (Aripiprazole 5 Mg Tab) 5 mg PO HS [facility] Stop: 06/04/23 21:59 Last Admin: 05/05/23 20:55 Dose: 5 mg Bismuth Subsalicylate (Bismuth Subsalicylate Liqd 236 Ml) 15 ml PO PRN PRN PRN Reason: Loose Stool Stop: 06/03/23 21:14 Last Admin: 05/05/23 18:02 Dose: 15 ml Citalopram Hydrobromide (Citalopram 40 Mg Tab) 40 mg PO QAM [facility] Stop: 06/04/23 08:59 Last Admin: 05/06/23 08:52 Dose: 40 mg Hydroxyzine HCl (Hydroxyzine Hcl 10 Mg Tab) 10 mg PO QID [facility] Stop: 06/04/23 20:59 Last Admin: 05/06/23 08:52 Dose: 10 mg Miscellaneous (Remove Nicoderm Patch) 1 each N/A DAILY@0859 [facility] Stop: 06/04/23 08:58 Last Admin: 05/06/23 08:52 Dose: 1 each Nicotine (Nicotine 14 Mg/24 Hr Patch) 14 mg TD QAM [facility] Stop: 06/04/23 08:59 Last Admin: 05/06/23 08:51 Dose: 14 mg Nicotine Polacrilex (Nicotine Polacrilex 2 Mg Gum) 2 piece MT PRN PRN PRN Reason: Smoking cessation Stop: 06/03/23 21:24 Pantoprazole Sodium (Pantoprazole 40 Mg Tab) 40 mg PO DAILYBB [facility] Stop: 06/04/23 06:29 Last Admin: 05/06/23 08:52 Dose: 40 mg Sodium Chloride (Sodium Chloride 0.65% Na Soln 45 Ml ([place])) 1 - 2 sprays NA PRN PRN PRN Reason: Nasal Dryness/Congestion Stop: 06/03/23 21:14 Mental Health & Subst Abuse Tx Therapist Name of Therapist: [facility]
[2023-05-06] MEDS: ARIPiprazole 5 MG TAB PO SCH (21:16)
--- NOTE | 2023-05-06 23:01 | Electrocardiogram Report ---
Test Reason : Blood Pressure : / mmHG Vent. Rate : 100 BPM Atrial Rate : 100 BPM P-R Int : 176 ms QRS Dur : 092 ms QT Int : 356 ms P-R-T Axes : 063 054 062 degrees QTc Int : 459 ms Normal sinus rhythm Normal ECG When compared with ECG of 04-MAY-2023 14:59, No significant change was found Confirmed by Ki Batista ([id number]) on 05/06/2023 11:01:07 PM Referred By: REFERRED SELF Confirmed By:Ki Batista
[2023-05-07] MEDS ORDERED: ONDANSETRON 4 MG OD TAB PO PRN (06:52)
[2023-05-07] MEDS: PANTOprazole 40 MG TAB PO SCH (08:46)
[2023-05-07] MEDS: CITALOPRAM 40 MG TAB PO SCH (08:46)
[2023-05-07] MEDS: hydrOXYzine HCl 10 MG TAB PO SCH ×2 (08:46→23:18)
[2023-05-07] MEDS: NICOTINE 14 MG/24 HR PATCH TD SCH (08:52)
[2023-05-07] MEDS ORDERED: PROMETHAZINE HCL 25 MG SUPP PR STA ×2 (09:32→17:17)
[2023-05-07] MEDS ORDERED: clonazePAM 1 MG TAB PO STA (09:33)
--- NOTE | 2023-05-07 10:00 | Psychiatric Progress Note ---
Date of Service May 07, 2023 Impression / Recommendations Impression 33 y/o F with history of Bipolar I Disorder, substance use disorders (methamphetamine, MDMA, cannabis) who presented to the ED following large reported alprazolam overdose of 30 mg and doxepin overdose of unknown size that she reported as intended to be suicidal in the context of recent methamphetamine relapse. 05/07/2023: Continues to spend nearly all her time in bed. She has become more nauseated and has been vomiting. BP remains elevated, still without elevations in HR or temperature. Her presentation is most consistent with opioid withdrawal. She has consistently denied any recent use when asked earlier during her stay, specifically including buprenorphine. Today, pt reports that she had been taking buprenorphine. She isn't sure if it had naloxone or not and thinks it might have been 8 mg. All she can say for certain is "it was a pill". She's not able to quantify how many she took or her most recent dose. She refers more to alprazolam taken prior to admission. Initially she'd said she took less than 1 mg/day, then yesterday alluded to "2 or 3" mg/day "to get to sleep" (in the context of misusing her prescription amphetamine- dextroamphetamine in addition to non-prescribed methamphetamine). Today she says she'd been "taking a few" every day but declines to attempt to quantify this. She continues to say she has not been using alcohol recently. Does not appear medically unstable so much as miserable, so based on current presentation I believe we can safely manage potential withdrawal on this unit. 05/06/2023: Pt spent most of yesterday and, thus far, today in bed with her blinds drawn. Her primary complaint is "tiredness" and "low energy", though she is surprisingly accepting of my telling her that we won't be ordering any amphetamines for her. BP has been somewhat elevated, raising concern about potential for alprazolam withdrawal despite her initial reports that she had been taking "not even 1 mg" per day prior to the overdose. Other vital signs, including HR and temperature, have remained normal and she evidences no tremor or diaphoresis. Pt has appeared to tolerate aripiprazole started yesterday afternoon and scheduled low-dose hydroxyzine without reported adverse effects including sedation. 05/05/2023: Pt received hydroxyzine in the ED following overdose on unknown amount of doxepin (itself a potent H1 inhibitor with significant anticholinergic risk) and has requested it since arriving on the unit even when markedly sleepy. I think we will need to be circumspect about administering this or other anxiolytic medications and maintain awareness that pt's interest in using such medication may be disproportionately greater than appropriate reasons to use it. Given her diagnoses, a mood stabilizer would appear to be the highest priority among medication needs, but she does not appear currently to be taking one. Lamotrigine 150 mg daily appears on her current medication list, but she says she hasn't been taking it. I'm very concerned about her prescribed use of amphetamines given her Bipolar I diagnosis and history of amphetamine misuse. Her judgment in taking the amphetamines but not continuing a mood stabilizer is further cause for concern. Doxepin, like other TCA's, can be quite toxic at even small multiples of typical daily doses. It appears likely that the intended use was for sleep, and pt reports she hardly ever took any and that she took little or none with the alprazolam. (1) Bipolar I disorder, most recent episode depressed, severe without psychotic features: (2) Methamphetamine use disorder, moderate, dependence: (3) Methylenedioxymethyamphetamine (MDMA) use disorder, mild: (4) Intentional overdose: (5) ADHD: Plan 05/07/2023: Pt appears to be experiencing potential withdrawal from both opioids (buprenorphine) and benzodiazepines (alprazolam) as well as discontinuation effects of methamphetamine. Although only the benzodiazepine withdrawal would be potentially dangerous and is the least likely given pt's use history (as she currently reports it), prudence would dictate ensuring she's appropriately treated to minimize risk of dangerous alcohol withdrawal. * Alcohol Withdrawal Severity Scale (AWSS) monitoring as a proxy for specific benzodiazepine withdrawal scale (e.g., CIWA-b) and approximation for opiate withdrawal scale (e.g., COWS) * phenobarbital 60 mg Q8H x 6 doses then 30 mg Q8H x 6 doses (approximately per [facility] alcohol withdrawal protocol, which uses multiples of 32.4 mg) * may require PRN phenobarbital * clonidine 0.1 mg PRN per facility opiate withdrawal scale * dicyclomine, loperamide, ondansetron on PRN basis for somatic withdrawal symptoms * continue aripiprazole 5 mg QHS * continue citalopram 40 mg daily * stop scheduled hydroxyzine 10 mg QID to minimize polypharmacy * avoid PRN anxiety medication including hydroxyzine given pt's seeking such medication even when she's barely able to remain conscious * avoid benzodiazepines in light of pt's history of problematic use of such medication * maintain off stimulants - these would be relatively contraindicated by either her bipolar disorder or her methamphetamine use disorder, and she has a hist ory of problematic use of such medication 05/06/2023: * continue aripiprazole 5 mg QHS * continue scheduled hydroxyzine 10 mg QID * continue citalopram 40 mg daily * avoid PRN anxiety medication including hydroxyzine given pt's seeking such medication even when she's barely able to remain conscious * avoid benzodiazepines in light of pt's history of problematic use of such medication * maintain off stimulants - these would be relatively contraindicated by either her bipolar disorder or her methamphetamine use disorder, and she has a history of problematic use of such medication 05/05/2023: The patient was admitted to the [facility] ([facility] unit) on q15 min checks (behavioral with suicide precautions) for safety.The patient will participate in group, recreational, and milieu therapies and will be offered additional individual and family sessions as clinically appropriate. * start aripiprazole 5 mg QHS * cautious trial of scheduled hydroxyzine 10 mg QID * avoid PRN anxiety medication given pt's seeking such medication even when she's barely able to remain conscious * continue citalopram 40 mg daily - antidepressant unlikely to be very effective for bipolar depression, but multiple other medication changes currently underway * maintain off alprazolam for now - pt has reported 1 mg/day or less prior to overdose, so withdrawal should not be an issue; rationale for use unclear * maintain off doxepin for now - rationale for use unclear, but dose suggests sleep was intended use * maintain off lamotrigine for now - pt certainly should be taking a mood stabilizer, but she says she has not taken this recently and resuming at the reported 150 mg/day dose could be risky * maintain off stimulants for now - these would be relatively contraindicated by either her bipolar disorder or her methamphetamine use disorder, which risks are likely to outweigh any benefit in terms of treating presumptive ADHD Suicide Risk Level Suicide Risk Level: High-Moderate (q15 min suicide checks) Suicide Risk Level Comments: admitted for overdose that she intended to be suicidal Interval History Identifying Information KHANH JANG is a 33-year-old F who currently lives in [place], [place] alone, has a history of Bipolar I Disorder, methamphetamine and MDMA use disorders, and was admitted on 05/04/23 20:28 on a 302 involuntary commitment for overdose. Chief Complaint "I feel like shit". Review of Systems Sleep Information Total Hours of Sleep: 7.25 Meal Information Percent Meal Consumed - Breakfast: 50 Percent Meal Consumed - Lunch: 0 Percent Meal Consumed - Dinner: 25 Nutrition Comment: No c/o nausea Subjective Subjective Patient was seen & assessed and interval progress reviewed in a multidisciplinary team meeting with the treatment team. For details, see the "Impression" section below. Physical Exam Psychiatric Orientation: oriented to person, oriented to place, oriented to time and cooperative (superficially); + not alert (drowsy) Apperance: appropriately dressed and + disheveled Eye Contact: + poor eye contact Speech: normal rate/rhythm/volume of speech Affect: + constricted affect Mood: + anxious mood and + irritable mood Thought Process: + circumstantial thought process and + tangential thought process Thought Content: + preoccupation (with anxiety medication), + hopelessness and + worthlessness Suicidal Thoughts: denies suicidal plan (after failed attempt) and denies suicidal intent; + reports suicidal thoughts Homicidal Thoughts: denies homicidal thoughts Hallucinations: no auditory hallucinations and no visual hallucinations Cognition: remote memory grossly intact and language grossly intact; + recent memory not intact (limited, palimpsest memory of recent events) and + attention not intact Estimated Intelligence: consistent with education level Insight: + poor insight Judgment: + poor judgement Vital Signs (Past 24 Hours) Last Vital Signs Temp 37 C 05/07/23 06:34 Pulse 67 05/07/23 06:34 Resp 16 05/07/23 06:34 BP 159/102 H 05/07/23 06:34 Pulse Ox 99 05/06/23 21:19 O2 Del Method Room Air 05/06/23 21:19 Results & Data (U) Current Inpatient Medications Current Inpatient Medications: Current Inpatient Medications Acetaminophen (Acetaminophen 325 Mg Tab) 650 mg PO Q4H PRN PRN Reason: Headache or Minor Fever Stop: 06/03/23 21:14 Aripiprazole (Aripiprazole 5 Mg Tab) 5 mg PO HS [facility] Stop: 06/04/23 21:59 Last Admin: 05/06/23 21:16 Dose: 5 mg Bismuth Subsalicylate (Bismuth Subsalicylate Liqd 236 Ml) 15 ml PO PRN PRN PRN Reason: Loose Stool Stop: 06/03/23 21:14 Last Admin: 05/05/23 18:02 Dose: 15 ml Citalopram Hydrobromide (Citalopram 40 Mg Tab) 40 mg PO QAM [facility] Stop: 06/04/23 08:59 Last Admin: 05/07/23 08:46 Dose: 40 mg Hydroxyzine HCl (Hydroxyzine Hcl 10 Mg Tab) 10 mg PO QID [facility] Stop: 06/04/23 20:59 Last Admin: 05/07/23 08:46 Dose: 10 mg Miscellaneous (Remove Nicoderm Patch) 1 each N/A DAILY@0859 [facility] Stop: 06/04/23 08:58 Last Admin: 05/07/23 08:56 Dose: 1 each Nicotine (Nicotine 14 Mg/24 Hr Patch) 14 mg TD QAM [facility] Stop: 06/04/23 08:59 Last Admin: 05/07/23 08:52 Dose: Not Given Nicotine Polacrilex (Nicotine Polacrilex 2 Mg Gum) 2 piece MT PRN PRN PRN Reason: Smoking cessation Stop: 06/03/23 21:24 Ondansetron HCl (Ondansetron 4 Mg Od Tab) 4 mg PO Q6H PRN PRN Reason: Nausea Stop: 06/06/23 06:51 Last Admin: 05/07/23 07:08 Dose: 4 mg Pantoprazole Sodium (Pantoprazole 40 Mg Tab) 40 mg PO DAILYBB [facility] Stop: 06/04/23 06:29 Last Admin: 05/07/23 08:46 Dose: 40 mg Sodium Chloride (Sodium Chloride 0.65% Na Soln 45 Ml ([place])) 1 - 2 sprays NA PRN PRN PRN Reason: Nasal Dryness/Congestion Stop: 06/03/23 21:14 Mental Health & Subst Abuse Tx Psychiatrist Name of Psychiatrist: [facility] Psychiatrist's Date Of Appointment With Psychiatric Provider: 05/08/23 Time of Appointment with Psychiatrist: 11:30 AM Psychiatric Appointment Comment: [id number] [facility], [place] [address] Psychiatrist Release of Information: Obtained, Reviewed and Signed Therapist Name of Therapist: [facility] Therapist's Therapy Appointment Comment: [address] [place] [address] Therapist Release of Information: Obtained, Reviewed and Signed Post Discharge Appointments Primary Care Physician Name Of Family Doctor/PCP: [facility] Time of Appointment with PCP: [address] , [place] [id number] Provider Appointment Comment: Please follow-up with your PCP as needed. Primary Care Release of Information: Obtained, Reviewed and Signed Contact Information Discharge Discharge Address: [address] [place] [address] [place] [address]
[2023-05-07] MEDS ORDERED: DICYCLOMINE HCL 10 MG CAP PO PRN (10:25)
[2023-05-07] MEDS ORDERED: cloNIDine HCL 0.1 MG TAB PO SCH (10:30)
[2023-05-07] MEDS ORDERED: LOPERAMIDE HCL 2 MG CAP PO PRN (10:30)
[2023-05-07] MEDS ORDERED: ONDANSETRON 8MG OD TAB PO PRN (12:56)
[2023-05-07] MEDS ORDERED: cloNIDine HCL 0.1 MG TAB PO PRN (13:26)
[2023-05-07] MEDS ORDERED: PHENobarbitaL 30 MG TAB PO SCH ×2 (13:30→13:50)
[2023-05-07] MEDS ORDERED: PHENobarbital sodium 65 MG/ML VIAL IM SCH (14:00)
[2023-05-07] MEDS: PHENobarbitaL 30 MG TAB PO SCH ×2 (14:44→20:55)
[2023-05-07] MEDS: cloNIDine HCL 0.1 MG TAB PO SCH ×2 (16:38→20:54)
[2023-05-07] MEDS: ARIPiprazole 5 MG TAB PO SCH (20:56)
[2023-05-08] MEDS: PHENobarbitaL 30 MG TAB PO SCH ×2 (06:35→13:15)
[2023-05-08] MEDS: cloNIDine HCL 0.1 MG TAB PO SCH ×2 (09:14→13:14)
[2023-05-08] MEDS: CITALOPRAM 40 MG TAB PO SCH (09:14)
[2023-05-08] MEDS: PANTOprazole 40 MG TAB PO SCH (09:14)
[2023-05-08] MEDS: NICOTINE 14 MG/24 HR PATCH TD SCH (09:18)
--- NOTE | 2023-05-08 12:09 | Discharge Summary ---
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 walk-in center at [address] [place] [address] [facility], or go to the closest Emergency Room. 5. Avoid alcohol and un-prescribed drugs. 6. You have been provided with the Mental Health Advance Directives Pamphlet for your review. 7. Your condition is stable for discharge to outpatient level of care, but recovery is an ongoing process. Ifthoughts to harm yourself or others return, follow the safety plan developed during your stay. Planning for a safe return home includes securing weapons. Our treatment team recommends weaponsbe removed from the home until your outpatient provider reassesses your progress. In rare cases where the items themselvescannot be removed, guns and ammunitionshould be secured separatelyand keys stored by a reliable personoutside of the home. If you were admitted on an involuntary commitment, the police or other legal authorities may be involved in this process. AFTERCARE APPOINTMENTS: * Please call your insurance company prior to your scheduled appointment to confirm your aftercare providers are covered. Take your insurance information to your appointments. WHO TO CALL AND WHEN: Medical Emergencies: For questions or emergencies related to your hospital stay, please contact the Inpatient Behavioral Health Unit at [phone]. A manager field investigations is on-call 27/04 for the Behavioral Health Unit for emergencies At any time you feel your situation is an emergency, you may also call 911 immediately. Pending Studies at Discharge: No Stand-Alone Forms: My [facility] [employer], Smoking Cessation Medications and DC Order Prescriptions: New aripiprazole [Abilify] 5 mg Tablet 5 mg PO HS 30 Days Qty: 30 0RF Continued omeprazole 40 mg capsule,delayed release(DR/EC) 40 mg PO DAILYBB Rx Instructions: TAKE THIS MEDICATION ONCE DAILY ONE HOUR BEFORE FIRST MEAL OF THE DAY citalopram 40 mg tablet 40 mg PO DAILY fluticasone propionate 50 mcg/actuation spray,suspension 1 - 2 spray INTRANASAL DAILY hydroxyzine pamoate 25 mg capsule 25 mg PO BID PRN (Reason: Anxiety) Discontinued dextroamphetamine-amphetamine 30 mg tablet 30 mg PO QAM alprazolam 1 mg tablet 1 mg PO HS lamotrigine 150 mg tablet 150 mg PO HS dextroamphetamine-amphetamine 10 mg tablet 10 mg PO .DAILY @ 1600 dextroamphetamine-amphetamine 20 mg tablet 20 mg PO .DAILY @ 1200 doxepin 10 mg capsule 20 mg PO BID PRN (Reason: Anxiety) Admission Data Admit Date/Time: 05/04/23 20:28 Attending Provider: Myron Cabrera Admit Provider: Myron Cabrera Primary Care Provider: Araseli Zaragoza Coding Level of Care Code 08029 D/C day mgmt > 30 min Diagnoses Substance induced mood disorder F19.94 Bipolar I disorder, most recent episode depressed, severe without psychotic features F31.4 ADHD F90.9 Methamphetamine use disorder, moderate, dependence F15.20 Methylenedioxymethyamphetamine (MDMA) use disorder, 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
[2023-05-08] MEDS ORDERED: DESTROY THIS MEDICATION ONE (13:12)
[2023-05-08] MEDS ORDERED: PHENobarbitaL 30 MG TAB PO SCH (14:00)
[2023-05-12 11:28] LABS: 7-Aminoclonaz, Confirm NEGATIVE ng/mL (<25); Amphetamine Urine, Confirm 13652 ng/mL (<250); Hydro-Alp Ur, GC/MS 1800 ng/mL (<25); Hydroxyethylflurazepam, Conf NEGATIVE ng/mL (<50); Hydroxymidazolam Ur, GC/MS NEGATIVE ng/mL (<50); Hydroxytriazolam NEGATIVE ng/mL (<50); Lorazepam, Ur GC/MS NEGATIVE ng/mL (<50); MDA negative; MDEA negative; MDMA (Ecstasy) Urine, Confirm negative; Marijuana Quant, GCMS Urine 47 ng/mL (<5); Methamphetamine, Ur Confirm 8226 ng/mL (<250); Nordiazepam, Confirm NEGATIVE ng/mL (<50); Oxazepam Ur, GC/MS NEGATIVE ng/mL (<50); Temazepam, Confirm NEGATIVE ng/mL (<50)
== END 2023-05-08 14:00 | disposition home or self-care (01) | DRG 897 ==
LOC: ED 09:59 → 3S 20:28